=== PATIENT | male | born 1955 | race Caucasian/White ===

== ENCOUNTER → 2017-10-13 | Outpatient (CLI) | payer OTHER ==
[~2017-10-13] MED LIST: ALLO100 PO; ALLO300 PO; AMLO5 PO; ASPI81EC PO; COLC.6 PO; CYAN1000I IM; DOXY100 PO; EXTRA STRENGTH500 MG PO; FERSU220EL PO; FURO40 PO; HYDCHL25 PO; Humalog Mi100 UNIT/4; INSDET100; INSDET100 SC; INSUASPI SC; INSULANI SC; Janumet 50-1,01 EACH PO; LISI20 PO; MELO7.5 PO; METF500 PO; NEBI10 PO; NEBI5 PO; Norco 10-325 T1 EACH PO; SIMV40 PO; SITA50T2 PO; SODBIC650 PO; SPIR25 PO; Simvastatin20 MG PO; TORSE20 PO; XARELTO20 MG PO; Zofran Odt4 MG SL; [UNRECOGNIZED DRUG - OTHER] PO
== END | disposition home or self-care (01) ==
LOC: OLS 08:00 → LAB SHORT 08:00
DX: E11.40 Type 2 diabetes mellitus with diabetic neuropathy, unspecified (principal); E78.5 Hyperlipidemia, unspecified
CPT/HCPCS: 82043

== ENCOUNTER → 2017-10-14 | Outpatient (CLI) | payer OTHER ==
[2017-10-14 13:51] LABS: Stool Occult Bld Immuno 1 Negative (NEGATIVE)
== END | disposition home or self-care (01) ==
LOC: OLS 04:00 → LAB SHORT 04:00
PROVIDERS: Internal Medicine
DX: Z12.11 Encounter for screening for malignant neoplasm of colon (principal)
CPT/HCPCS: G0328

== ENCOUNTER 2018-09-09 09:38 | Inpatient (IN) | payer OTHER ==
[~2018-09-09] VITALS: Ht 182.9 cm; Wt 181.7 kg
[~2018-09-09 09:38] MED LIST changes: +FERROUS SULFATE PO; -FERSU220EL PO; -Janumet 50-1,01 EACH PO; -NEBI5 PO
[2018-09-09 10:15] LABS: BASOPHILS ABSOLUTE AUTO 0.03 K/mm3 (0.00-0.23); BASOPHILS PERCENT AUTO 0 % (0-2); EOSINOPHILS ABSOLUTE AUTO 0.05 K/mm3 (0.00-0.68); EOSINOPHILS PERCENT AUTO 1 % (0-6); Hematocrit 32.3 % (37.0-53.0); Hemoglobin 10.2 g/dL (13.5-17.5); IMMATURE GRAN ABSOLUTE AUTO 0.13 K/mm3 (0.00-0.10); IMMATURE GRAN PERCENT AUTO 2 % (0-1); LYMPHOCYTES PERCENT AUTO 3 % (21-46); MONOCYTES ABSOLUTE AUTO 0.91 K/mm3 (0.16-1.47); MONOCYTES PERCENT AUTO 13 % (4-13); Mean Corpuscular HGB 32.4 pg (26.0-34.0); Mean Corpuscular HGB Conc 31.6 g/dL (31.5-36.5); Mean Corpuscular Volume 103 fL (80-100); Mean Platelet Volume 9.2 fL (9.1-12.4); NEUTROPHILS ABSOLUTE AUTO 5.82 K/mm3 (1.96-9.15); NEUTROPHILS PERCENT AUTO 82 % (41-73); Platelet Count 171 K/mm3 (150-400); RDW Coefficient Variation 13.9 % (11.7-14.2); RDW Standard Deviation 52.4 fL (35.1-46.3); Red Blood Cell Count 3.15 M/mm3 (4.30-5.90); White Blood Cell Count 7.14 K/mm3 (4.00-11.30)
[2018-09-09 10:39] LABS: Albumin, Blood 2.5 g/dL (3.4-5.0); Albumin/Globulin Ratio 0.7 (0.8-1.8); Bilirubin, Total 0.4 mg/dL (0.1-1.0); Calcium, Blood 8.2 mg/dL (8.5-10.1); Creatinine, Blood 1.86 mg/dL (0.60-1.20); Globulin, Blood 3.7 g/dL (2.2-4.0); Potassium, Blood 3.7 mmol/L (3.5-5.5); Total Protein, Blood 6.2 g/dL (6.4-8.2)
[2018-09-09 16:10] LABS: PCO2 Arterial 38.3 mmHg (35-45); PO2 Arterial 57.1 mmHg (80-100)
[2018-09-09 16:38] LABS: Influenza A Positive (NEGATIVE); Influenza B Negative (NEGATIVE)
[2018-09-09] MEDS ORDERED: METO50ER PO (17:10)
[2018-09-09] MEDS ORDERED: LISI20 PO (17:11)
[2018-09-09] MEDS ORDERED: Humalog100 UNIT/3 SC (17:14)
[2018-09-09] MEDS ORDERED: NEBI10 PO (17:56)
[2018-09-09] MEDS ORDERED: SPIR25 PO (17:57)
[2018-09-09] MEDS ORDERED: Simvastatin20 MG PO (18:51)
[2018-09-09] MEDS ORDERED: Janumet 50-1,01 EACH PO (18:52)
[2018-09-10 05:47] LABS: BASOPHILS ABSOLUTE AUTO 0.02 K/mm3 (0.00-0.23); BASOPHILS PERCENT AUTO 0 % (0-2); EOSINOPHILS ABSOLUTE AUTO 0.01 K/mm3 (0.00-0.68); EOSINOPHILS PERCENT AUTO 0 % (0-6); Hemoglobin 9.8 g/dL (13.5-17.5); IMMATURE GRAN PERCENT AUTO 3 % (0-1); LYMPHOCYTES ABSOLUTE AUTO 0.41 K/mm3 (0.84-5.20); LYMPHOCYTES PERCENT AUTO 7 % (21-46); MONOCYTES ABSOLUTE AUTO 1.11 K/mm3 (0.16-1.47); MONOCYTES PERCENT AUTO 19 % (4-13); Mean Corpuscular HGB 31.8 pg (26.0-34.0); Mean Corpuscular HGB Conc 30.6 g/dL (31.5-36.5); Mean Corpuscular Volume 104 fL (80-100); Mean Platelet Volume 9.8 fL (9.1-12.4); NEUTROPHILS ABSOLUTE AUTO 4.08 K/mm3 (1.96-9.15); NEUTROPHILS PERCENT AUTO 70 % (41-73); Platelet Count 167 K/mm3 (150-400); RDW Standard Deviation 53.9 fL (35.1-46.3); Red Blood Cell Count 3.08 M/mm3 (4.30-5.90); White Blood Cell Count 5.83 K/mm3 (4.00-11.30)
[2018-09-10 06:03] LABS: Bun/Creatinine Ratio 13.5 (12.0-20.0); Calcium, Blood 8.4 mg/dL (8.5-10.1); Creatinine, Blood 2.23 mg/dL (0.60-1.20); Potassium, Blood 3.9 mmol/L (3.5-5.5)
[2018-09-10] MEDS ORDERED: Ferosul325 MG PO (14:22)
[2018-09-10] MEDS ORDERED: TUMERIC PO (14:26)
[2018-09-10] MEDS ORDERED: Coq-10100 MG PO (14:26)
--- NOTE | 2018-09-10 17:32 | NUR ---
POST VOID BLADDER SCAN 75
--- NOTE | 2018-09-10 20:50 | NUR ---
PM NOTE. ASSUMED CARE OF PT APROX 1900, PT IS A&Ox4 AND IND IN THE ROOM, PT WAS ADMITTED DUE TO ACUTE RESP FAILURE W/HYPOXIA AND IS FLU POSITIVE. PT IS CURRENTLY ON 4L NC W/STATS AT 91%. PT DOES NOT USE O2 AT HOME. TELE INTACT, NSR W/BBB IN THE 80'S PER BED RUBBER. PT'S BP 151/64. PT HAS 3+ EDEMA TO THE BLLE. PT L/S COARSE AND DIM T/O. BT PRESENT AND HYPERACTIVE, ABD IS SOFT AND NONTENDER TO PALP. CALL LIGHT IN REACH, PT IS UP IN RECLINER, WILL CONTINUE TO MONITOR.
[2018-09-11 04:14] LABS: BASOPHILS ABSOLUTE AUTO 0.02 K/mm3 (0.00-0.23); BASOPHILS PERCENT AUTO 0 % (0-2); EOSINOPHILS ABSOLUTE AUTO 0.01 K/mm3 (0.00-0.68); EOSINOPHILS PERCENT AUTO 0 % (0-6); Hematocrit 29.6 % (37.0-53.0); IMMATURE GRAN ABSOLUTE AUTO 0.11 K/mm3 (0.00-0.10); IMMATURE GRAN PERCENT AUTO 1 % (0-1); LYMPHOCYTES ABSOLUTE AUTO 0.52 K/mm3 (0.84-5.20); LYMPHOCYTES PERCENT AUTO 7 % (21-46); MONOCYTES ABSOLUTE AUTO 1.32 K/mm3 (0.16-1.47); MONOCYTES PERCENT AUTO 17 % (4-13); Mean Corpuscular HGB 31.1 pg (26.0-34.0); Mean Corpuscular HGB Conc 30.4 g/dL (31.5-36.5); Mean Corpuscular Volume 102 fL (80-100); Mean Platelet Volume 9.8 fL (9.1-12.4); NEUTROPHILS ABSOLUTE AUTO 5.78 K/mm3 (1.96-9.15); NEUTROPHILS PERCENT AUTO 75 % (41-73); Platelet Count 146 K/mm3 (150-400); RDW Standard Deviation 52.7 fL (35.1-46.3); Red Blood Cell Count 2.89 M/mm3 (4.30-5.90); White Blood Cell Count 7.76 K/mm3 (4.00-11.30)
[2018-09-11 04:40] LABS: Albumin, Blood 1.9 g/dL (3.4-5.0); Albumin/Globulin Ratio 0.5 (0.8-1.8); Bilirubin, Total 0.7 mg/dL (0.1-1.0); Bun/Creatinine Ratio 12.8 (12.0-20.0); Calcium, Blood 8.3 mg/dL (8.5-10.1); Creatinine, Blood 3.27 mg/dL (0.60-1.20); Globulin, Blood 3.6 g/dL (2.2-4.0); Magnesium, Blood 1.7 mg/dL (1.6-2.4); Phosphorus, Blood 4.3 mg/dL (2.5-4.9); Total Protein, Blood 5.5 g/dL (6.4-8.2)
--- NOTE | 2018-09-11 06:21 | NUR ---
SHIFT SUMMARY. NO ACUTE CHANGES NOTED THIS SHIFT. PT'S VS HAVE BEEN STABLE. PT'S O2 HAS BEEN TITRATED FROM 4L NC TO 1.5 L NC W/ STATS AT 92%. PT WAS GIVEN 2MG BUMEX AT 2100, PT HAS NOT VOIDED SINCE THAT TIME. PT CONTINUES TO HAVE 3+ PITTING EDEMA TO HIS BLLE. PT DENIES ANY CHEST PAIN/PRESSURE, N/V AND BECOMES SOB W/ACTIVITY. CALL LIGHT IN REACH, PT IS IN RECLINER, WILL CONTINUE TO MONITOR UNTIL REPORT IS GIVEN TO ONCOMING RN.
--- NOTE | 2018-09-11 12:09 | NUR ---
Assumed Care: Assumed care of pt at approx 0700. VSS. In no apparent sign of distress. Pt is A&Ox4. Calls appropriately and repositions self. Dr. Florence in to see pt today, and pt denies any unmet needs or requests this AM. See shift assessment for detailed assessment. Pt down to 1L O2 NC this AM and tolerating well. Pt eager to take a shower and go for a walk today. Pt currently resting in bed with call light within reach. Received order to transfer to medical floor w/out tele, but no bed assignment at this time. Will continue to monitor.
--- NOTE | 2018-09-11 12:13 | NUR ---
Update: Report given to Milo Mancilla RN.
--- NOTE | 2018-09-11 14:18 | NUR ---
UPDATE: Assumed care of Pt. Agree with AM assessment. Pt up in room working with Physical therapy. Tolerated well. Pt SOB after working with Pt. LS wheezy throughout. Resp Therapy called for breathing tx. HR sounds reg, med no tele status. Dressings to RLQ intact. Denies other needs or pain. Will continue to monitor.
--- NOTE | 2018-09-11 18:42 | NUR ---
SHIFT SUMMARY: Pt sitting up in chair with visitor at bedside. States that he is feeling better today. Oxygen is down to 1L NC. LS still wheezing throughout. Pt has done well this shift. Has worked with Physical therapy. Has been up in the room independently. VSS. 24 hour urine being collected and will be completed in am. Denies needs at this time. Will report to night RN.
--- NOTE | 2018-09-11 20:52 | NUR ---
PM NOTE. ASSUMED CARE OF PT APROX 1900, PT IS A&Ox4 AND IND IN THE ROOM. PT WAS ADMITTED DUE TO RESP FAILURE AND IS FLU POSITIVE. PT'S L/S HAVE IMPROVED, THE COARSENESS HAS DECREASED, WHEEZES ARE STILL HEARD T/O. PT IS CURRENTLY ON 1L NC AT 94%. RR 23 EVEN AND UNLABORED. PT'S HRR AT 85, PT'S BP 145/56, PT HAS 2+ PITTING EDEMA TO HIS BLLE, THIS IS ALSO IMPROVED FROM PREVIOUS SHIFT. L/S ABOVE. BT PRESENT AND HYPERACTIVE, ABD IS SOFT AND NONTENDER TO PALP. PT HAS CHRONIC WOUNDS TO HIS RIGHT LOWER ABD AREA, PT TAKES CARE OF THESE HIMSELF, HE STATES HE HAS HAD THEM FOR 18 YEARS. CALL LIGHT IN REACH, PT IS UP IN RECLINER, WILL CONTINUE TO MONITOR.
[2018-09-12 04:03] LABS: BASOPHILS ABSOLUTE AUTO 0.02 K/mm3 (0.00-0.23); BASOPHILS PERCENT AUTO 0 % (0-2); EOSINOPHILS ABSOLUTE AUTO 0.05 K/mm3 (0.00-0.68); EOSINOPHILS PERCENT AUTO 1 % (0-6); Hematocrit 28.9 % (37.0-53.0); IMMATURE GRAN ABSOLUTE AUTO 0.06 K/mm3 (0.00-0.10); IMMATURE GRAN PERCENT AUTO 1 % (0-1); LYMPHOCYTES ABSOLUTE AUTO 0.54 K/mm3 (0.84-5.20); LYMPHOCYTES PERCENT AUTO 8 % (21-46); MONOCYTES ABSOLUTE AUTO 0.69 K/mm3 (0.16-1.47); MONOCYTES PERCENT AUTO 11 % (4-13); Mean Corpuscular HGB 31.6 pg (26.0-34.0); Mean Corpuscular HGB Conc 31.1 g/dL (31.5-36.5); Mean Corpuscular Volume 101 fL (80-100); Mean Platelet Volume 10.1 fL (9.1-12.4); NEUTROPHILS ABSOLUTE AUTO 5.09 K/mm3 (1.96-9.15); NEUTROPHILS PERCENT AUTO 79 % (41-73); Platelet Count 163 K/mm3 (150-400); RDW Coefficient Variation 13.9 % (11.7-14.2); RDW Standard Deviation 51.8 fL (35.1-46.3); Red Blood Cell Count 2.85 M/mm3 (4.30-5.90); White Blood Cell Count 6.45 K/mm3 (4.00-11.30)
[2018-09-12 04:26] LABS: Anion Gap 9 mmol/L (6-16); Blood Urea Nitrogen 48 mg/dL (8-24); Bun/Creatinine Ratio 11.7 (12.0-20.0); CO2, Blood 24 mmol/L (21-32); Calcium, Blood 8.1 mg/dL (8.5-10.1); Chloride, Blood 108 mmol/L (98-108); Glomerular Filtration Rate 16 (60-); Glucose, Blood 119 mg/dL (70-99); Magnesium, Blood 1.8 mg/dL (1.6-2.4); Phosphorus, Blood 5.1 mg/dL (2.5-4.9); Potassium, Blood 3.7 mmol/L (3.5-5.5); Sodium, Blood 141 mmol/L (136-145)
--- NOTE | 2018-09-12 05:22 | NUR ---
SHIFT SUMMARY. NO ACUTE CHANGES NOTED THIS SHIFT. PT VS HAVE BEEN STABLE. PT DENIES ANY CHEST PAIN/PRESSURE OR N/V. PT BECOMES SOB W/ACTIVITY, HE IS CURRENTLY ON 1L NC WITH STATS >90%. PT HAS 24 HOUR URINE TEST THAT WILL BE DONE AT 0830 TODAY. PT HAS BEEN COMPLIANT WITH HIS 1000 ML FLUID RESTRICTION. PT HAS BEEN IND IN THE ROOM T/O SHIFT. PT COMPLAINS OF SHAKY HANDS, HE STATES THIS HAS BEEN GOING ON "ALL DAY." PT HAS NO OTHER COMPLAINTS, PT IS TAKING BREATHING TREATMENTS AND IV STERIODS THAT COULD CAUSE THIS ISSUE. CALL LIGHT IN REACH, BED IS LOCKED AND LOW WILL CONTINUE TO MONITOR UNTIL REPORT IS GIVEN TO ONCOMING RN.
[2018-09-12 10:21] LABS: Protein, Urine Quantitative 475.9 mg/dL (0.0-11.9)
--- NOTE | 2018-09-12 10:43 | NUR ---
AM NOTE PT ALERT AND ORIENTED. MEDCIAL FLOOR STATUS. NO TELEMETRY. AP REG/REG. PT UP AD ROBB. GAIT SLOW BIT STEADY. HE DOES GET SOB WITH ACTIVITY. 24 HOUR URINE COMPLETED AND TAKEN TO LAB. ENDED 24 HOUR URINE AT 0930 WHEN IT WAS STARTED AT 0830 YESTERDAY D/T THE TIME CHANGE. PT COMPLIANT WITH FLUID RESTRICTION. HE IS SUCKING ON ICE AND ASKED HIS SISTER TO BRING IN SOME SUGAR FREE HARD CANDY. VSS. DENIED PAIN OR DISCOMFORT. UP INT HE RECLINER CURRENTLY. CONTINUE POT.
--- NOTE | 2018-09-12 13:43 | NUR ---
NOTE PT SITTING UP WITH HIS GIRL FRIEND AT BEDSIDE. EYES CLOSED. RESP. EVEN AND UNLABORED. TALKED WITH PT SISTER EARLIER. SHE IS VERY CONCERNED ABOUT PT RENAL FUNCTION. SHE ASKED THAT DR MADSEN BE CONTACTED TOMORROW. PT AGREED WELL. VSS. DENIED PAIN. WAS PLAYING CARDS WITH FRIEND EARLIER. CONTINUE POT.
--- NOTE | 2018-09-12 21:35 | NUR ---
PM NOTE. ASSUMED CARE OF PT APROX 1900, PT IS A&Ox4 AND IND IN THE ROOM. PT IS VERY COMPLIANT W/1000 ML FLUID RESTRICTION AND I'S&O'S. PT'S L/S HAVE IMPROVED GREATLY FROM PREVIOUS SHIFT, PT IS CURRENTLY ON 1L NC AT 93%. PT'S HRR IN THE 70'S, PT'S BP 196/94, PT HAS 1+ EDEMA TO HIS BLE, THIS ALSO HAS IMPROVED GREATLY. L/S ARE SLIGHLTY COARSE WITH SMALL EXP WHEEZES HEARED IN THE UPPER LOBES. BT PRESENT AND HYPOACTIVE, ABD IS SOFT AND NONTENDER TO PALP. CALL LIGHT IN REACH, BED IS LOCKED AND LOW WILL CONTINUE TO MONITOR.
--- NOTE | 2018-09-12 22:58 | NUR ---
PT UPDATE... PT CALLED THIS RN AND SAID THAT ACADEMIC MANAGER HAD COME INTO HIS ROOM AND TOLD HIM HE WAS GOING TO REQUIRE DIALYSIS, PT WAS VERY UPSET BY THIS AND DID NOT FEEL HIS KIDNEYS WERE THAT BAD. THIS RN PROVIDED EXTENSIVE EDUCATION ABOUT HIS CONDITION, DIALYSIS, KIDNEY FUCNTION IN RELATIONS TO HIS CURRENT ILLNESS. THIS RN ANSWERED PT'S QUESTIONS TO HIS STATED SASTIFACTION. PT DENIED ANY OTHER QUEISTIONS, COMMENTS OR CONCERNS.
[2018-09-13 04:08] LABS: BASOPHILS PERCENT AUTO 0 % (0-2); EOSINOPHILS PERCENT AUTO 0 % (0-6); Hematocrit 29.1 % (37.0-53.0); Hemoglobin 9.1 g/dL (13.5-17.5); IMMATURE GRAN ABSOLUTE AUTO 0.05 K/mm3 (0.00-0.10); IMMATURE GRAN PERCENT AUTO 2 % (0-1); LYMPHOCYTES ABSOLUTE AUTO 0.32 K/mm3 (0.84-5.20); LYMPHOCYTES PERCENT AUTO 9 % (21-46); MONOCYTES PERCENT AUTO 6 % (4-13); Mean Corpuscular HGB 31.7 pg (26.0-34.0); Mean Corpuscular HGB Conc 31.3 g/dL (31.5-36.5); Mean Corpuscular Volume 101 fL (80-100); NEUTROPHILS ABSOLUTE AUTO 2.87 K/mm3 (1.96-9.15); NEUTROPHILS PERCENT AUTO 83 % (41-73); Platelet Count 143 K/mm3 (150-400); RDW Coefficient Variation 13.4 % (11.7-14.2); RDW Standard Deviation 50.6 fL (35.1-46.3); Red Blood Cell Count 2.87 M/mm3 (4.30-5.90); White Blood Cell Count 3.44 K/mm3 (4.00-11.30)
[2018-09-13 04:23] LABS: Bun/Creatinine Ratio 13.1 (12.0-20.0); Creatinine, Blood 4.52 mg/dL (0.60-1.20); Potassium, Blood 4.6 mmol/L (3.5-5.5)
--- NOTE | 2018-09-13 05:29 | NUR ---
SHIFT SUMMARY. NO ACUTE CHANGES NOTED THIS SHIFT. PT HAS DENIED ANY CHEST PAIN/PRESSURE, N/V BUT BECOMES SOB W/ACTIVITY. PT IS CURRENTLY ON 1L NC WITH STATS AT 91%. PT HAS BEEN IND IN THE ROOM AND UP TO THE BATHROOM TO VOID. PT HAS HAD 200 MLS OF FLUIDS THIS SHIFT. PT WAS HYPERTENSIVE AT 196/86 AT 0417, PT WAS MEDICATED PER EMAR AND HIS BP DROPPED TO 145/68. PT WAS NOT SYMPTOMACTIC DURING THIS TIME. OTHERWISE PT'S VS HAVE BEEN STABLE. CALL LIGHT IN REACH, BED IS LOCKED AND LOW WILL CONTINUE TO MONITOR UNTIL REPORT IS GIVEN TO ONCOMING RN.
--- NOTE | 2018-09-13 09:17 | NUR ---
DR NOELLE DRAKE RETURNED PAGE. ORDER RECEIVED. CONTINUE POT.
--- NOTE | 2018-09-13 09:37 | NUR ---
DR MADSEN D/T EVENTS DURING THE NIGHT WITH DR ALDRICH. PT HAS REQUESTED DR MADSEN BE CONTACTED. PT CALLED DR MADSEN'S OFFICE HIMSELF. THIS NURSE CALLED DR MADSEN'S OFFICVE TO MAKE THE OFFICIAL REQUEST. LEFT A MESSAGE FOR DR MADSEN FOR CLARIFICATION ON THE BUMEX DOSE. CONTINUE POT.
[2018-09-13 14:26] LABS: Stool Occult Bld Immuno 1 Negative (NEGATIVE)
--- NOTE | 2018-09-13 18:09 | NUR ---
EVENING NOTE PT SITTING UP INT HE CHAIR AT BEDSIDE. ALERT AND ORIENTED. DR MADSEN CAME AND VISITED WITH PT. NEW ORDERS AND PLAN OF CARE UPDATED BY DR MADSEN. VSS. PT RELIEVED TO HEAR THE PLAN FROM HER. PT VOIDING PER URINAL. TOOK A SHOWER. PICTURES TAKEN OF PT RIGHT ABD WOUNDS X3 AND PLACED IN THE CHART. PT REDRESSED HIS CHRONIC WOUND HIMSELF. WOUNDS PINK, NO DRAINAGE OR ODOR NOTED. CONTINUE POT.
[2018-09-14 04:14] LABS: Hematocrit 30.5 % (37.0-53.0); Hemoglobin 9.6 g/dL (13.5-17.5)
[2018-09-14 04:32] LABS: Albumin, Blood 2.2 g/dL (3.4-5.0); Anion Gap 10 mmol/L (6-16); Blood Urea Nitrogen 75 mg/dL (8-24); Bun/Creatinine Ratio 16.4 (12.0-20.0); CO2, Blood 22 mmol/L (21-32); Calcium, Blood 8.4 mg/dL (8.5-10.1); Chloride, Blood 108 mmol/L (98-108); Creatinine, Blood 4.56 mg/dL (0.60-1.20); Glomerular Filtration Rate 14 (60-); Glucose, Blood 193 mg/dL (70-99); Phosphorus, Blood 4.7 mg/dL (2.5-4.9); Potassium, Blood 4.3 mmol/L (3.5-5.5); Sodium, Blood 140 mmol/L (136-145)
--- NOTE | 2018-09-14 05:34 | NUR ---
SHIFT SUMMARY PT MEDICAL W/ TELE STATUS, IN DROPLET ISOLATION FOR FLU. PT A&O X4, INDEPENDENT IN ROOM W/ CANE WHILE AMBULATING. PT LUNG SOUNDS COARSE T/O W/ EXPIRATORY WHEEZE. SPO2 > 92% ON 1L NC. PT DENIES SOB W/ AMBULATION TO AND FROM BATHROOM. PT REFUSING CPAP, REFUSAL FORM SIGNED BY PT AND PLACED IN CHART. PT DENIES PAIN. WILL CONTINUE TO MONITOR AND PROVIDE CARE UNTIL REPORT OFF TO DAY SHIFT RN.
--- NOTE | 2018-09-14 08:45 | NUR ---
INITIAL ASSESSMENT: Pt sitting up in recliner chair. A/O x 4. LS diminished in bases with some exp wheezing upper lobes. HR reg, tele shows NSR with some PVC's. BT hyperactive. Very obese. Beulah dressings over RLQ chronic wounds. Pulses palp. +1 edema to BLE. Pt states his legs look better now then they have in "a while". VSS. Pt denies pain. Call light in reach. Denies needs. Will monitor.
[2018-09-14 16:08] LABS: A/G RATIO 0.9 (0.7-1.7); ALBUMIN 2.1 g/dL (2.9-4.4); ALPHA-1-GLOBULIN 0.4 g/dL (0.0-0.4); ALPHA-2-GLOBULIN 1.3 g/dL (0.4-1.0); BETA GLOBULIN 0.7 g/dL (0.7-1.3); GAMMA GLOBULIN 0.3 g/dL (0.4-1.8); GLOBULIN, TOTAL 2.6 g/dL (2.2-3.9); IMMUNOGLOBULIN A, QN, SERUM 146 mg/dL (61-437); IMMUNOGLOBULIN G, QN, SERUM 267 mg/dL (700-1600); IMMUNOGLOBULIN M, QN, SERUM 21 mg/dL (20-172); M-SPIKE Not Observed g/dL (Not Observed); PROTEIN, TOTAL, SERUM 4.7 g/dL (6.0-8.5)
--- NOTE | 2018-09-14 18:06 | NUR ---
Shift Summary: Pt was sitting up in chair. Finished with dinner. Visitor at bedside. Pt has done well this shift. Was able to be taken off of oxygen this am and has remained on RA throughout the day. Biox has remained > 90% on RA. Does become SOB when he is up in room to bathroom. During this his BIox still remains > 90%. Has voided frequently, clear yellow urine. BP was elevated this afternoon, right after being up to bathroom. Improved after resting in chaif for a while. Pt has denied needs. Will report to night RN.
--- NOTE | 2018-09-14 19:30 | NUR ---
ASSUMED CARE PT RESTING IN ROOM IN CHAIR COMFORTABLY. PER DAY SHIFT PT HAS BEEN ION RECLINER MOST OF THE DAY. REPORTS PREFERS RECLINER TO BED. PT IS INDEPENDENT IN ROOM, AND CALLS APPROPRIATELY. RESP EVEN UNLABORED ON RA, W/ SATS >92%. DENIES SOB OR CP. PT DENIES ANY OTHER NEEDS AT THIS TIME. CALL LIGHT IN REACH.
--- NOTE | 2018-09-15 05:34 | NUR ---
SHIFT SUMMARY PT SLEEPING IN ROOM COMFORTABLY. NO ACUTE CHANGES NOTERD T/O SHIFT. PT HAD NO COMPLAINTS. DENIED ANY PAIN, OR SOB. RESP EVEN UNLBAORED ON RA W/ SATS >92%. PT INDEPENDENT IN ROOM, CALLS APPROPRIATELY. CALL LIGHT IN REACH.
[2018-09-15 05:37] LABS: Albumin, Blood 2.1 g/dL (3.4-5.0); Anion Gap 10 mmol/L (6-16); Blood Urea Nitrogen 81 mg/dL (8-24); Bun/Creatinine Ratio 19.9 (12.0-20.0); CO2, Blood 22 mmol/L (21-32); Calcium, Blood 8.3 mg/dL (8.5-10.1); Chloride, Blood 109 mmol/L (98-108); Creatinine, Blood 4.07 mg/dL (0.60-1.20); Glomerular Filtration Rate 16 (60-); Glucose, Blood 192 mg/dL (70-99); Phosphorus, Blood 4.4 mg/dL (2.5-4.9); Potassium, Blood 4.4 mmol/L (3.5-5.5); Sodium, Blood 141 mmol/L (136-145)
[2018-09-15 07:17] LABS: ANTIGLOMERULAR BM AB 2 units (0-20)
--- NOTE | 2018-09-15 08:10 | NUR ---
AM ASSESSMENT: Pt up in recliner chair. LS diminished in bases, L lobe with some coarsness throughout. BT positive. HR reg with murmur heard. PUlses palp. Pt states that he is feeling good. VSS. 2+ edema in BLE. Pulses palp. Denies pain. Call light in reach. Will monitor.
[2018-09-15 14:09] LABS: ANA DIRECT Negative (Negative); ANTIMYELOPEROXIDASE (MPO) ABS <9.0 U/mL (0.0-9.0); ANTIPROTEINASE 3 (PR-3) ABS <3.5 U/mL (0.0-3.5); ATYPICAL PANCA <1:20 titer (Neg:<1:20); CYTOPLASMIC (C-ANCA) <1:20 titer (Neg:<1:20); PERINUCLEAR (P-ANCA) <1:20 titer (Neg:<1:20)
[2018-09-15 14:09] LABS: M-SPIKE, % Not Observed % (Not Observed); PROTEIN,TOTAL,URINE 440.3 mg/dL (Not Estab.)
--- NOTE | 2018-09-15 18:09 | NUR ---
SHIFT SUMMARY: Pt sitting up in recliner chair. Denies needs. Pt has done well this shift. Has remained off of oxygen today and biox has remained 94%. Pt has voided frequently clear yellow urine. BP has been elevated, new orders (see emar). Pt has denied needs and hopes to go home tomorrow. Stable at end of shift. Will report to night rn.
--- NOTE | 2018-09-15 19:30 | NUR ---
NEW ASSUMED CARE PT RESTING IN ROOM IN CHAIR COMFORTABLY. PER DAY SHIFT PT HAD NO ACUTE CHANGES IN STATUS. PER PROVIDER PT TO BE OBSERVED ONE MORE NIGHT, AND LABS TO BE DRAWN AGAIN TO WATCH FOR IMPROVED KIDNEY FUNCTION. PT DENIES CP OR SOB. REPORTS FEELING GOOD AND READY TO GO HOME. RESP EVEN UNLABORED ON RA. PER DAY SHIFT PT HAD SOME HTN TODAY. HAS BEEN TREATED PER EMAR. CALL LIGHT IN REACH. PT CALLS APPROPRIATELY.
--- NOTE | 2018-09-15 19:30 | NUR ---
ASSUMED CARE PT RESTING IN ROOM COMFORTABLY. PER DAY SHIFT PT HAD NO ACUTE CHANGES IN STATUS DURING THE DAY. PT HAS HAD SLIGHT IMPROVMENT IN COGNITION AND HAS BEEN ABLE TO HAVE SHORT CONVERSATIONS WITH STAFF. PT CONTINUES TO BE CONFUSED AND DISORIENTED AT TIMES. RESP EVEN UNLABORED ON RA W/ SATS >92%. DENIES ANY PAIN AT THIS TIME. SURGICAL SITE FOR PACEMAKER INSPECTED AND WNL, DRESSING C/D/I. PT REORIENTED TO CALL LIGHT AND HOW TO FUNCTION TV CONTROLS AND CALL FOR STAFF. BED ALARM ON FOR SAFETY. CALL LIGHT IN REACH.
[2018-09-16 03:45] LABS: Hematocrit 31.1 % (37.0-53.0)
[2018-09-16 04:04] LABS: Albumin, Blood 2.2 g/dL (3.4-5.0); Anion Gap 10 mmol/L (6-16); Blood Urea Nitrogen 79 mg/dL (8-24); Bun/Creatinine Ratio 21.8 (12.0-20.0); CO2, Blood 23 mmol/L (21-32); Calcium, Blood 8.2 mg/dL (8.5-10.1); Chloride, Blood 110 mmol/L (98-108); Creatinine, Blood 3.62 mg/dL (0.60-1.20); Glomerular Filtration Rate 18 (60-); Glucose, Blood 185 mg/dL (70-99); Sodium, Blood 143 mmol/L (136-145)
--- NOTE | 2018-09-16 05:52 | NUR ---
SHIFT SUMMARY PT SLEEPING IN ROOM COMFORTABLY. NO ACUTE CHANGES WERE NOTED TO PT STATUS T/O NIGHT. RESP EVEN UNLABORED ON RA, W/ SATS >92%. DENIES CP, OR SOB. PT IS INDEPENDENT IN ROOM. CALLS APPROPRIATELY. CALL LIGHT IN REACH.
[2018-09-16] MEDS ORDERED: Coenzyme Q10100 M1 PO (12:52)
[2018-09-16] MEDS ORDERED: BUME2 PO (12:53)
[2018-09-16] MEDS ORDERED: Janumet 50-1,01 EACH PO (13:05)
[2018-09-16] MEDS ORDERED: CLON.1 PO (13:06)
[2018-09-16] MEDS ORDERED: GUAI600T33 PO (13:07)
[2018-09-16] MEDS ORDERED: PRED10 PO (13:09)
[2018-09-16] MEDS ORDERED: HYDRA25 PO (13:09)
[2018-09-16] MEDS ORDERED: Ventolin/Prove6.7 GM INH (13:11)
--- NOTE | 2018-09-16 14:09 | NUR ---
PT IS DISCHARGED TO HOME. APPOINTMENT TO BE WITH ON October AND WITH ON October. PT VERBALIZED UNDERSTNADING. RX PHONED TO [facility] AT 1330. THIS RN GOES OVER [place] MEDS WITH PATIENT. HE VERBALIZED UNDERSTANDING.
== END 2018-09-16 13:55 | disposition home or self-care (01) | DRG 871 ==
LOC: ER 09:38 → ERHOLD 17:44 → PCU 17:44
PROVIDERS: Emergency Medicine; Hospitalist; Internal Medicine; Internal Medicine Nephrology; ADMIT Family Medicine
DX: A41.9 Sepsis, unspecified organism (principal); I50.31 Acute diastolic (congestive) heart failure; J96.01 Acute respiratory failure with hypoxia; E66.2 Morbid (severe) obesity with alveolar hypoventilation; J44.1 Chronic obstructive pulmonary disease with (acute) exacerbation; N17.9 Acute kidney failure, unspecified; I13.0 Hypertensive heart and chronic kidney disease with heart failure and stage 1 through stage 4 chronic kidney disease, or unspecified chronic kidney disease; I24.8 Other forms of acute ischemic heart disease; I48.0 Paroxysmal atrial fibrillation; J10.1 Influenza due to other identified influenza virus with other respiratory manifestations; N18.3 Chronic kidney disease, stage 3 (moderate); E11.22 Type 2 diabetes mellitus with diabetic chronic kidney disease; E11.65 Type 2 diabetes mellitus with hyperglycemia; T38.0X5A Adverse effect of glucocorticoids and synthetic analogues, initial encounter; D63.1 Anemia in chronic kidney disease; R80.9 Proteinuria, unspecified; E88.09 Other disorders of plasma-protein metabolism, not elsewhere classified; G47.30 Sleep apnea, unspecified; M10.9 Gout, unspecified; Z66 Do not resuscitate; Z87.891 Personal history of nicotine dependence; Z79.01 Long term (current) use of anticoagulants; Z79.82 Long term (current) use of aspirin; Z79.4 Long term (current) use of insulin; Z79.899 Other long term (current) drug therapy
CPT/HCPCS: 36415; 36600; 71046; 76770; 80048; 80053; 80069; 81050; 82274; 82607; 82728; 82746; 82784; 82803; 82947; 83516; 83520; 83540; 83550; 83605; 83735; 83880; 84100; 84156; 84165; 84166; 84484; 85014; 85018; 85025; 86038; 86256; 86334; 86335; 87040; 87804; 93005; 93010; 94640; 94660; 94760; 94762; 97110; 97161; 99285-25; J0360; J0881; J1650; J1815; J2920; J7626

== ENCOUNTER → 2018-10-01 | Outpatient (CLI) | payer OTHER ==
[~2018-10-01] MED LIST changes: +BUME2 PO; +CLON.1 PO; +Coenzyme Q10100 M1 PO; +Coq-10100 MG PO; +Ferosul325 MG PO; +GUAI600T33 PO; +HYDRA25 PO; +Humalog100 UNIT/3 SC; +Janumet 50-1,01 EACH PO; +METO50ER PO; +PRED10 PO; +TUMERIC PO; +Ventolin/Prove6.7 GM INH
[2018-10-01 12:53] LABS: BASOPHILS ABSOLUTE AUTO 0.01 K/mm3 (0.00-0.23); BASOPHILS PERCENT AUTO 0 % (0-2); EOSINOPHILS ABSOLUTE AUTO 0.13 K/mm3 (0.00-0.68); EOSINOPHILS PERCENT AUTO 3 % (0-6); Hematocrit 27.9 % (37.0-53.0); Hemoglobin 8.8 g/dL (13.5-17.5); IMMATURE GRAN ABSOLUTE AUTO 0.06 K/mm3 (0.00-0.10); IMMATURE GRAN PERCENT AUTO 1 % (0-1); LYMPHOCYTES PERCENT AUTO 12 % (21-46); MONOCYTES ABSOLUTE AUTO 0.77 K/mm3 (0.16-1.47); MONOCYTES PERCENT AUTO 15 % (4-13); Mean Corpuscular HGB Conc 31.5 g/dL (31.5-36.5); Mean Corpuscular Volume 102 fL (80-100); Mean Platelet Volume 10.2 fL (9.1-12.4); NEUTROPHILS ABSOLUTE AUTO 3.44 K/mm3 (1.96-9.15); NEUTROPHILS PERCENT AUTO 69 % (41-73); Platelet Count 145 K/mm3 (150-400); RDW Coefficient Variation 14.3 % (11.7-14.2); RDW Standard Deviation 52.5 fL (35.1-46.3); Red Blood Cell Count 2.75 M/mm3 (4.30-5.90); White Blood Cell Count 5.01 K/mm3 (4.00-11.30)
[2018-10-01 13:02] LABS: Albumin, Blood 2.5 g/dL (3.4-5.0); Albumin/Globulin Ratio 0.7 (0.8-1.8); Bilirubin, Total 0.3 mg/dL (0.1-1.0); Bun/Creatinine Ratio 21.8 (12.0-20.0); Calcium, Blood 8.4 mg/dL (8.5-10.1); Creatinine, Blood 2.61 mg/dL (0.60-1.20); Globulin, Blood 3.8 g/dL (2.2-4.0); Potassium, Blood 4.2 mmol/L (3.5-5.5); Total Protein, Blood 6.3 g/dL (6.4-8.2)
== END | disposition home or self-care (01) ==
LOC: LAB SHORT 12:45 → LAB EV 12:45
PROVIDERS: Physician Assistant Surgical
DX: R06.09 Other forms of dyspnea (principal)
CPT/HCPCS: 80053; 83880; 85025

== ENCOUNTER → 2018-10-25 | Outpatient (CLI) | payer OTHER | END | disposition home or self-care (01) | LOC: LAB SHORT 10:38 → LAB EV 10:38 | DX: N39.0 Urinary tract infection, site not specified (principal) | CPT/HCPCS: 87077; 87086; 87186 ==

== ENCOUNTER → 2018-11-09 | Outpatient (CLI) | payer OTHER | END | disposition home or self-care (01) | LOC: LAB SHORT 10:45 → LAB EV 10:45 | DX: R30.0 Dysuria (principal) | CPT/HCPCS: 87077; 87086; 87186 ==

== ENCOUNTER → 2019-03-29 | Outpatient (CLI) | payer OTHER ==
[2019-03-29 12:29] LABS: Protein, Urine Random 594.4 mg/dL (0.0-11.9)
== END | disposition home or self-care (01) ==
LOC: LAB 09:55 → LAB SHORT 09:55
PROVIDERS: Internal Medicine
DX: N18.3 Chronic kidney disease, stage 3 (moderate) (principal)
CPT/HCPCS: 82570; 84156

== ENCOUNTER → 2019-05-31 | Outpatient (CLI) | payer OTHER ==
[2019-05-31 12:01] LABS: Creatinine, Urine Random 56.2 mg/dL (27.00-270.00)
[2019-05-31 12:02] LABS: Protein, Urine Random 559.7 mg/dL (0.0-11.9)
== END | disposition home or self-care (01) ==
LOC: LAB SHORT 05:45 → LAB 05:45
PROVIDERS: Internal Medicine
DX: N18.3 Chronic kidney disease, stage 3 (moderate) (principal)
CPT/HCPCS: 82570; 84156

== ENCOUNTER 2021-02-20 09:11 | Inpatient (IN) | payer OTHER ==
[~2021-02-20] VITALS: Ht 182.9 cm; Wt 154.2 kg
[~2021-02-20 09:11] MED LIST changes: +ALBU2.5V5 INH; +HUMALOG KW100 UNIT/1 SC; -Humalog100 UNIT/3 SC; -Ventolin/Prove6.7 GM INH
[2021-02-20 09:52] LABS: BASOPHILS ABSOLUTE AUTO 0.03 K/mm3 (0.00-0.23); BASOPHILS PERCENT AUTO 0 % (0-2); EOSINOPHILS PERCENT AUTO 0 % (0-6); Hematocrit 31.9 % (37.0-53.0); IMMATURE GRAN ABSOLUTE AUTO 0.12 K/mm3 (0.00-0.10); IMMATURE GRAN PERCENT AUTO 1 % (0-1); LYMPHOCYTES ABSOLUTE AUTO 0.18 K/mm3 (0.84-5.20); LYMPHOCYTES PERCENT AUTO 2 % (21-46); MONOCYTES ABSOLUTE AUTO 1.03 K/mm3 (0.16-1.47); MONOCYTES PERCENT AUTO 10 % (4-13); Mean Corpuscular HGB 31.3 pg (26.0-34.0); Mean Corpuscular HGB Conc 31.3 g/dL (31.5-36.5); Mean Corpuscular Volume 100 fL (80-100); NEUTROPHILS ABSOLUTE AUTO 8.59 K/mm3 (1.96-9.15); NEUTROPHILS PERCENT AUTO 86 % (41-73); Platelet Count 132 K/mm3 (150-400); RDW Coefficient Variation 15.9 % (11.7-14.2); RDW Standard Deviation 56.9 fL (35.1-46.3); Red Blood Cell Count 3.19 M/mm3 (4.30-5.90); White Blood Cell Count 9.95 K/mm3 (4.00-11.30)
[2021-02-20] MEDS ORDERED: INSULANI SC (09:54)
[2021-02-20 10:10] LABS: Albumin, Blood 2.8 g/dL (3.4-5.0); Albumin/Globulin Ratio 0.9 (0.8-1.8); Bilirubin, Total 0.4 mg/dL (0.1-1.0); Bun/Creatinine Ratio 20.9 (12.0-20.0); Calcium, Blood 8.7 mg/dL (8.5-10.1); Creatinine, Blood 2.54 mg/dL (0.60-1.20); Globulin, Blood 3.2 g/dL (2.2-4.0); Magnesium, Blood 1.6 mg/dL (1.6-2.4); Potassium, Blood 3.3 mmol/L (3.5-5.5); Troponin I 0.358 ng/mL (0.000-0.040)
[2021-02-20] MEDS ORDERED: POTA20LUD PO (13:27)
[2021-02-20] MEDS ORDERED: METO50ER PO (13:28)
[2021-02-20] MEDS ORDERED: LISI20 PO (13:28)
[2021-02-20] MEDS ORDERED: FEBUXOSTAT80 MG PO (13:28)
[2021-02-20] MEDS ORDERED: CYAN500 PO (13:36)
[2021-02-20] MEDS ORDERED: VITAMIN D31000 UNI1 PO (13:36)
[2021-02-20] MEDS ORDERED: ASCO500 PO (13:36)
--- NOTE | 2021-02-20 18:13 | NUR ---
PATIENT ARRIVES VIA W/C FROM [facility] ABOUT 1545. HX OF ; D.M., AFIB, OBESE, SBO SURGERY A NUMBER OF YEARS AGO WITH MESH COMING THRU SKIN AND RESULTING IN 4 SMALL WOUNDS TO ABD X 1 1/2 YEARS.PATIENT WAS ON TOILET EARLY AM AT HOME AND FELL WHEN TRYING TO GET UP. WAS ON THE GROUND ABOUT 7 HOURS. SKIN TEARS TO BUE.20 GA TO RT HAND. DOING SERIAL TROPS FOR ELEVATED NUMBERS. UNLABORED RESPIRATIONS. TELE ON. ABLE TO MAKE NEEDS KNOWN. WCTM
[2021-02-20 18:34] LABS: Creatine Kinase MB 12.9 ng/mL (0.0-3.6)
[2021-02-20 19:02] LABS: Creatine Kinase MB Index 0.5 (0.0-4.0); Troponin I 0.541 ng/mL (0.000-0.040)
--- NOTE | 2021-02-20 19:15 | NUR ---
LAB RESULTS GIVEN TO JENNIFER TO REPORT TO MD. SCRUGGS TRENDING UP AND CK HIGH.
[2021-02-20 23:47] LABS: Creatine Kinase MB 10.2 ng/mL (0.0-3.6); Troponin I 0.473 ng/mL (0.000-0.040)
[2021-02-20 23:48] LABS: Creatine Kinase MB Index 0.3 (0.0-4.0)
[2021-02-21 05:44] LABS: Hematocrit 31.6 % (37.0-53.0); Mean Corpuscular HGB 31.9 pg (26.0-34.0); Mean Corpuscular HGB Conc 31.6 g/dL (31.5-36.5); Mean Corpuscular Volume 101 fL (80-100); Mean Platelet Volume 10.7 fL (9.1-12.4); Platelet Count 107 K/mm3 (150-400); RDW Coefficient Variation 16.4 % (11.7-14.2); RDW Standard Deviation 60.5 fL (35.1-46.3); Red Blood Cell Count 3.13 M/mm3 (4.30-5.90); White Blood Cell Count 12.24 K/mm3 (4.00-11.30)
[2021-02-21 06:28] LABS: Albumin, Blood 2.8 g/dL (3.4-5.0); Albumin/Globulin Ratio 0.8 (0.8-1.8); Bilirubin, Total 0.7 mg/dL (0.1-1.0); Bun/Creatinine Ratio 23.5 (12.0-20.0); Calcium, Blood 8.8 mg/dL (8.5-10.1); Creatinine, Blood 2.51 mg/dL (0.60-1.20); Globulin, Blood 3.4 g/dL (2.2-4.0); Magnesium, Blood 1.6 mg/dL (1.6-2.4); Phosphorus, Blood 2.2 mg/dL (2.5-4.9); Potassium, Blood 3.8 mmol/L (3.5-5.5); Total Protein, Blood 6.2 g/dL (6.4-8.2)
--- NOTE | 2021-02-21 06:28 | NUR ---
SHIFT SUMMARY: VERY WEAK AND PAINFUL ON THE LEFT SIDE. MOSTLY LEFT SHOULDER. DIFFICULT TIME GETTING SELF UP FROM BED TO STANDING WITH OUT 2 PERSON ASSIST. GAVE TYELNOL X1. TROPONIN REACHED CRITICAL LEVEL OF 0.541 BUT IS TRENDING DOWN LAST READING 0.472 LAST CREATINE KINEASE 3165, CK-MB 10.2. WBC ELEVATED 12.24. DIMINISHED LS, OCCATIONAL COUGH. DRESSINGS TO ABDOMIN CDI. SWELLING BLE. UNABLE TO SLEEP IN THE BED, GOT RECLIENER WHICH HE WAS ALBE TO GET COMFORTABLE. VS WNL. NO FURTHER CHANGES TO REPORT. CALL LIGHT IN REACH.
[2021-02-21 06:30] LABS: BAND PERCENT MAN 29 % (0-8); BASOPHILS PERCENT MAN 0 % (0-2); EOSINOPHILS PERCENT MAN 0 % (0-6); LYMPHOCYTES ABSOLUTE MAN 0.48 K/mm3 (0.84-5.20); LYMPHOCYTES PERCENT MAN 4 % (21-46); METAMYELOCYTE ABSOLUTE MAN 0.12 K/mm3 (0.00-0.00); METAMYELOCYTE PERCENT MAN 1 % (0-0); MONOCYTES ABSOLUTE MAN 0.61 K/mm3 (0.16-1.47); MONOCYTES PERCENT MAN 5 % (4-13); MYELOCYTE ABSOLUTE MAN 0.12 K/mm3 (0.00-0.00); MYELOCYTE PERCENT MAN 1 % (0-0); NEUTROPHILS ABSOLUTE MAN 10.89 K/mm3 (1.96-9.15); SEG NEUTROPHILS PERCENT MAN 60 % (41-73); TOTAL CELLS COUNTED 100
--- NOTE | 2021-02-21 12:00 | NUR ---
WOUNDS TO BUE CLEANED WITH WOUND RESIDENTIAL APPLIANCE REPAIR TECHNICIAN AND SOME DRIED BLOOD UNABLE TO GET OFF. OPEN TO AIR. ABD WOUNDS X 4 CLEANED AND ABD APPLIED. SEE PICS.
--- NOTE | 2021-02-21 17:15 | NUR ---
Admit: 02/21/21 Dx. elevated troponin PCP: Dr. Caro Contact: Colleen Ambrocio, Family Member, Update 02/21/21: Patient lives alone. Has experienced difficulty ambulating recently. PT. peformed assessment today with recommendation for SNF for PT prior to returning home. Discussed SNF option with pt. He states that he would prefer not to go to [facility]. Agreeable to [facility] if they will accept him. Pt. likely to be appropriate for discharge within the next 24-48 hours. Packet prepared and will fax to [facility] admissions for review. I will call in the am to ensure that all information needed has been received. Updated nurse on third floor caring for pt. Advised that we have experienced some delays in getting patients accepted due to overwhelming need and staffing shortages within the facilities. Informed the patient of this as well. Will continue to provide updates as I receive them from [facility].
--- NOTE | 2021-02-21 19:21 | NUR ---
PT RESTING IN HIS CHAIR AFTER PM MEDICATION ADMIN AND DINNER. PT MAKES NO C/O PAIN AT THIS TIME AND REMAINS A 2 PERSON ASSIST TO BATHROOM. PT WAS COOPERATIVE, ATE ALL THREE MEALS AND WORKED WITH THERAPY. NO CHANGES NOTED. IV RUNNING AND WNL. BED IN LOW POSITION AND CALL LIGHT WITHIN REACH. STAFF WILL CONTINUE TO MONITOR.
--- NOTE | 2021-02-21 19:50 | NUR ---
ASSUMED CARE. AOX3, 2 PERSON TO GET UP WITH USE OF GAIT BELT. ONCE STANDING APPEARS TO BE STABLE WITH WALKER. UP TO THE BATHROOM. LOOSE BROWN STOOL NOTED. DENIES ANY CHEST PAIN OR CONGESTION. LS CLEAR T/O DIMINISHED IN BASES. COMPRESSION SOCKS IN PLACE. NO CHANGES IN SKIN ASSESSMENT. TELE ON AND RUNNING SINUS. BACK TO CHAIR. CALL LIGHT IN REACH.
--- NOTE | 2021-02-22 05:46 | NUR ---
SHIFT SUMMARY; STILL VERY WEAK, REQUIRING 2 PERSON ASSIST TO GET UP. ONCE HE IS UP HE IS ABLE TO USE THE WALKER STEADY. LOOSE STOOLS NOTED. TEMP AT START OF SHIFT THAT CAME DOWN ON ITS OWN. TYELNOL GIVEN FOR PAIN IN SHOULDER UP NECK ON THE LEFT SIDE. DENIED ANY SYMPTOMS OF INFECTION. NO OTHER CHANGES TO REPORT. CALL LIGHT IN REACH.
[2021-02-22 09:20] LABS: Hematocrit 27.9 % (37.0-53.0); Hemoglobin 8.8 g/dL (13.5-17.5); Mean Corpuscular HGB 31.3 pg (26.0-34.0); Mean Corpuscular HGB Conc 31.5 g/dL (31.5-36.5); Mean Corpuscular Volume 99 fL (80-100); Mean Platelet Volume 10.6 fL (9.1-12.4); Platelet Count 98 K/mm3 (150-400); RDW Coefficient Variation 16.4 % (11.7-14.2); Red Blood Cell Count 2.81 M/mm3 (4.30-5.90); White Blood Cell Count 10.12 K/mm3 (4.00-11.30)
[2021-02-22 09:32] LABS: Albumin, Blood 2.3 g/dL (3.4-5.0); Anion Gap 8 mmol/L (6-16); Blood Urea Nitrogen 69 mg/dL (8-24); Bun/Creatinine Ratio 27.5 (12.0-20.0); CO2, Blood 21 mmol/L (21-32); Calcium, Blood 8.3 mg/dL (8.5-10.1); Chloride, Blood 112 mmol/L (98-108); Creatinine, Blood 2.51 mg/dL (0.60-1.20); Glomerular Filtration Rate 26 (60-); Glucose, Blood 164 mg/dL (70-99); Phosphorus, Blood 1.9 mg/dL (2.5-4.9); Potassium, Blood 3.8 mmol/L (3.5-5.5); Sodium, Blood 141 mmol/L (136-145)
--- NOTE | 2021-02-22 09:57 | NUR ---
Update 02/22/21: Per discussion with Dr. Caro, pt. likely appropriate to discharge home within the next 24-48 hours. No need for SNF at this time. SNF referral cancelled. Will schedule pt. for F/U in anticipation of his discharge.
[2021-02-22 10:28] LABS: BAND PERCENT MAN 6 % (0-8); BASOPHILS PERCENT MAN 1 % (0-2); EOSINOPHILS PERCENT MAN 1 % (0-6); LYMPHOCYTES PERCENT MAN 2 % (21-46); MONOCYTES PERCENT MAN 7 % (4-13); SEG NEUTROPHILS PERCENT MAN 83 % (41-73); TOTAL CELLS COUNTED 100
--- NOTE | 2021-02-22 14:37 | NUR ---
Update 02/22/21: Ordered pt. shower chair and walker with seat from [facility] to be delivered today. Ancipating pt. to likely D/C tomorrow. Discussed discharge planning with pt. His brother will be providing transportation and assisting him with getting medications. HH requested through [facility]. They have been notified that order will be sent. Pt. agreeable to services. Pt. denied any safety concerns or barriers to care.
--- NOTE | 2021-02-22 15:59 | NUR ---
SHIFT SUMMARY NO ACUTE CHANGES NOTED TO PATIENT THIS SHIFT. PT IS AAOX4, ABLE TO MAKE NEEDS KNOWN. PLEASANT AND COOPERATIVE TO CARE. PT MEDICATED FOR PAIN PER EMAR. NO C/O CP, SOB, OR N&V. PT AMBULATES WITH 1P ASSIST W/ FWW TO BATHROOM. PT WORKED WITH THERAPY THIS SHIFT. BED AT LOWEST POSITION. CALL LIGHT WITHIN REACH.
--- NOTE | 2021-02-22 21:30 | NUR ---
ASSUMED CARE. PATIENT HAS IMPROVED WELL, ABLE TO GET IN AND OUT OF THE BED LONG THE BED IS RAISED TO HIS HEIGHT, USES THE WALKER TO GET AND FROM THE BATHROOM. IT IS IN LOW POSITIONS WHERE HE IS UNABLE TO ASSIST HIMSELF. PAIN GOOD AT THIS TIME. GOOD APPETITE. WILL BE GOING TO REHAB SOON A BED GETS OPEN. CALL LIGHT IN REACH WILL CONTINUE TO MONITO.
[2021-02-23 05:02] LABS: Hematocrit 27.8 % (37.0-53.0); Hemoglobin 8.7 g/dL (13.5-17.5)
[2021-02-23 05:19] LABS: Albumin, Blood 2.2 g/dL (3.4-5.0); Anion Gap 6 mmol/L (6-16); Blood Urea Nitrogen 67 mg/dL (8-24); CO2, Blood 22 mmol/L (21-32); Calcium, Blood 8.3 mg/dL (8.5-10.1); Chloride, Blood 112 mmol/L (98-108); Creatinine, Blood 2.31 mg/dL (0.60-1.20); Glomerular Filtration Rate 28 (60-); Glucose, Blood 140 mg/dL (70-99); Phosphorus, Blood 2.5 mg/dL (2.5-4.9); Potassium, Blood 3.6 mmol/L (3.5-5.5); Sodium, Blood 140 mmol/L (136-145)
--- NOTE | 2021-02-23 06:59 | NUR ---
SHIFT SUMMARY: KARISSA CONTINUES TO IMPROVE. HAS BEEN ABLE TO GET UP AND DOWN ALL SHIFT ON HIS OWN LONG THE BED IS ELEVATED FOR HIS HEIGHT. HE USES THE WALKER TO GO TO THE BATHROOM AND BACK. NO PAIN THIS SHIFT. VS HAVE BEEN STABLE. NO ACUTE CHANGES TO NOTE. CALL LIGHT IN REACH.
[2021-02-23] MEDS ORDERED: MASOPHEN325 MG PO (14:44)
[2021-02-23] MEDS ORDERED: FEBUXOSTAT80 MG PO (14:45)
--- NOTE | 2021-02-23 18:29 | NUR ---
DISCHARGE SUMMARY PT DISCHARGE TO HOME AT APPROXIMATELY 1825 THIS SHIFT. PT VERBALIZED UNDERSTANDING OF DISCHARGE ORDERS. NO COMPLAINTS OR ANY ISSUES NOTED TO PATIENT THIS SHIFT. NO ACUTE CHANGES NOTED TO PT THIS SHIFT. IV LINE DISCONTINUED PRIOR TO DC. DISCHARGE PAPERWORK GIVEN TO PATIENT PRIOR TO DC.
--- NOTE | 2021-02-25 08:57 | NUR ---
Important Discharge Details:Patient discharged with [facility]. I spoke with Etienne on Thursday and let them know he was likely discharging. We might need to confirm that they received orders over the weekend if they have not yet contacted pt. Brother installed grab bars in home. I ordered shower chair and walker with seat. Pt. requested that those be delivered to his home. They were requested to be delivered on Thursday. Patient scheduled for F/U appt. with Dr. Caro on 02/27/21 at 10:20 am.
== END 2021-02-23 18:20 | disposition home health service (06) | DRG 683 ==
LOC: ER 09:11 → ERHOLD 09:12 → MEDS 15:43
PROVIDERS: Internal Medicine; Student in an Organized Health Care Education/Training Program; ADMIT Hospitalist
DX: N17.9 Acute kidney failure, unspecified (principal); M62.82 Rhabdomyolysis; Z68.42 Body mass index [BMI] 45.0-49.9, adult; I67.89 Other cerebrovascular disease; I48.21 Permanent atrial fibrillation; E66.01 Morbid (severe) obesity due to excess calories; E11.22 Type 2 diabetes mellitus with diabetic chronic kidney disease; I12.9 Hypertensive chronic kidney disease with stage 1 through stage 4 chronic kidney disease, or unspecified chronic kidney disease; G89.29 Other chronic pain; E87.6 Hypokalemia; M54.9 Dorsalgia, unspecified; S40.212A Abrasion of left shoulder, initial encounter; S50.812A Abrasion of left forearm, initial encounter; W18.30XA Fall on same level, unspecified, initial encounter; M10.9 Gout, unspecified; E11.21 Type 2 diabetes mellitus with diabetic nephropathy; E78.5 Hyperlipidemia, unspecified; G47.33 Obstructive sleep apnea (adult) (pediatric); E11.319 Type 2 diabetes mellitus with unspecified diabetic retinopathy without macular edema; N18.30 Chronic kidney disease, stage 3 unspecified; E11.51 Type 2 diabetes mellitus with diabetic peripheral angiopathy without gangrene; D69.6 Thrombocytopenia, unspecified; E04.2 Nontoxic multinodular goiter; M13.0 Polyarthritis, unspecified; I35.0 Nonrheumatic aortic (valve) stenosis; E21.1 Secondary hyperparathyroidism, not elsewhere classified; D63.1 Anemia in chronic kidney disease; Z98.890 Other specified postprocedural states; Z87.891 Personal history of nicotine dependence; Z79.01 Long term (current) use of anticoagulants; Y92.002 Bathroom of unspecified non-institutional (private) residence as the place of occurrence of the external cause; Z90.49 Acquired absence of other specified parts of digestive tract; Z79.4 Long term (current) use of insulin; Z79.899 Other long term (current) drug therapy; Z79.52 Long term (current) use of systemic steroids
CPT/HCPCS: 36415; 70450; 72125; 73030; 80053; 80069; 82550; 82553; 82947; 83735; 84100; 84484; 85014; 85018; 85025; 93005; 93010; 93306; 97110; 97116; 97161; 97165; 97530; 97535; 99285-25; A9270; J0881; J1940; J7030; J7060

== ENCOUNTER 2021-04-22 10:11 | Inpatient (IN) | payer OTHER ==
[~2021-04-22] VITALS: Ht 180.3 cm; Wt 127.0 kg
[~2021-04-22 10:11] MED LIST changes: +ASCO500 PO; +CYAN500 PO; +FEBUXOSTAT80 MG PO; +MASOPHEN325 MG PO; +POTA20LUD PO; +VITAMIN D31000 UNI1 PO
[2021-04-22 10:50] LABS: BASOPHILS ABSOLUTE AUTO 0.03 K/mm3 (0.00-0.23); BASOPHILS PERCENT AUTO 0 % (0-2); EOSINOPHILS ABSOLUTE AUTO 0.05 K/mm3 (0.00-0.68); EOSINOPHILS PERCENT AUTO 1 % (0-6); Hematocrit 31.8 % (37.0-53.0); Hemoglobin 9.7 g/dL (13.5-17.5); IMMATURE GRAN ABSOLUTE AUTO 0.08 K/mm3 (0.00-0.10); IMMATURE GRAN PERCENT AUTO 1 % (0-1); LYMPHOCYTES ABSOLUTE AUTO 0.81 K/mm3 (0.84-5.20); LYMPHOCYTES PERCENT AUTO 8 % (21-46); MONOCYTES ABSOLUTE AUTO 1.14 K/mm3 (0.16-1.47); MONOCYTES PERCENT AUTO 11 % (4-13); Mean Corpuscular HGB 31.6 pg (26.0-34.0); Mean Corpuscular HGB Conc 30.5 g/dL (31.5-36.5); Mean Corpuscular Volume 104 fL (80-100); Mean Platelet Volume 10.3 fL (9.1-12.4); NEUTROPHILS ABSOLUTE AUTO 7.88 K/mm3 (1.96-9.15); NEUTROPHILS PERCENT AUTO 79 % (41-73); Platelet Count 88 K/mm3 (150-400); RDW Standard Deviation 69.6 fL (35.1-46.3); Red Blood Cell Count 3.07 M/mm3 (4.30-5.90); White Blood Cell Count 9.99 K/mm3 (4.00-11.30)
[2021-04-22 11:06] LABS: Alanine Aminotransfer (ALT/SGP 26 U/L (12-78); Albumin, Blood 2.5 g/dL (3.4-5.0); Albumin/Globulin Ratio 0.6 (0.8-1.8); Alk Phos 67 U/L (50-136); Anion Gap 11 mmol/L (6-16); Aspartate Aminotrans (AST/SGOT 22 U/L (12-37); Bilirubin, Total 0.4 mg/dL (0.1-1.0); Blood Urea Nitrogen 143 mg/dL (8-24); CO2, Blood 13 mmol/L (21-32); Calcium, Blood 9.2 mg/dL (8.5-10.1); Chloride, Blood 111 mmol/L (98-108); Creatinine, Blood 4.47 mg/dL (0.60-1.20); Globulin, Blood 4.5 g/dL (2.2-4.0); Glomerular Filtration Rate 13 (60-); Glucose, Blood 135 mg/dL (70-99); Potassium, Blood 4.6 mmol/L (3.5-5.5); Sodium, Blood 135 mmol/L (136-145); Troponin I <0.015 ng/mL (0.000-0.040)
[2021-04-22 12:24] LABS: SARS-Cov-2 (COVID-19) PCR, MMC NEGATIVE (NEGATIVE)
[2021-04-22 12:36] LABS: Source, Urine Voided
[2021-04-22 12:42] LABS: Appearance, Urine Clear (Clear); Blood, Urine 4+ (Neg); Color, Urine Yellow (P-Yellow); Glucose Qualitative, Urine Neg (Neg); Ketones, Urine Neg (Neg); Leukocyte Esterase, Urine Neg (Neg); Nitrite, Urine Neg (Neg); Protein, Urine 2+ (Neg); Urobilinogen, Urine NORM (Normal)
[2021-04-22 13:23] LABS: Bilirubin, Urine 1+ (Neg)
[2021-04-22 13:28] LABS: Squamous Epithelial Cells Rare /hpf (Few); White Blood Cells, Urine 0-2 /hpf (0-5)
[2021-04-22 13:29] LABS: Bacteria Rare /hpf
[2021-04-22] MEDS ORDERED: POTA20LUD PO (13:57)
[2021-04-23 05:14] LABS: BASOPHILS ABSOLUTE AUTO 0.02 K/mm3 (0.00-0.23); BASOPHILS PERCENT AUTO 0 % (0-2); EOSINOPHILS ABSOLUTE AUTO 0.08 K/mm3 (0.00-0.68); EOSINOPHILS PERCENT AUTO 1 % (0-6); Hematocrit 27.9 % (37.0-53.0); Hemoglobin 9.2 g/dL (13.5-17.5); IMMATURE GRAN ABSOLUTE AUTO 0.03 K/mm3 (0.00-0.10); IMMATURE GRAN PERCENT AUTO 0 % (0-1); LYMPHOCYTES ABSOLUTE AUTO 0.36 K/mm3 (0.84-5.20); LYMPHOCYTES PERCENT AUTO 5 % (21-46); MONOCYTES ABSOLUTE AUTO 0.75 K/mm3 (0.16-1.47); MONOCYTES PERCENT AUTO 10 % (4-13); Mean Corpuscular HGB 31.6 pg (26.0-34.0); Mean Platelet Volume 10.6 fL (9.1-12.4); NEUTROPHILS ABSOLUTE AUTO 6.35 K/mm3 (1.96-9.15); NEUTROPHILS PERCENT AUTO 84 % (41-73); Platelet Count 96 K/mm3 (150-400); RDW Coefficient Variation 17.4 % (11.7-14.2); RDW Standard Deviation 62.4 fL (35.1-46.3); Red Blood Cell Count 2.91 M/mm3 (4.30-5.90); White Blood Cell Count 7.59 K/mm3 (4.00-11.30)
[2021-04-23 05:17] LABS: Mean Corpuscular Volume 96 fL (80-100)
[2021-04-23 05:36] LABS: Albumin, Blood 2.4 g/dL (3.4-5.0); Anion Gap 9 mmol/L (6-16); Blood Urea Nitrogen 142 mg/dL (8-24); Bun/Creatinine Ratio 38.9 (12.0-20.0); CO2, Blood 19 mmol/L (21-32); Calcium, Blood 9.2 mg/dL (8.5-10.1); Chloride, Blood 110 mmol/L (98-108); Creatinine, Blood 3.65 mg/dL (0.60-1.20); Glomerular Filtration Rate 17 (60-); Glucose, Blood 144 mg/dL (70-99); Magnesium, Blood 2.2 mg/dL (1.6-2.4); Phosphorus, Blood 2.8 mg/dL (2.5-4.9); Potassium, Blood 3.9 mmol/L (3.5-5.5); Sodium, Blood 138 mmol/L (136-145)
--- NOTE | 2021-04-23 07:35 | NUR ---
CHILD PSYCHOLOGY TEACHER SUMMARY PATIENT AN ER ADMIT. AOX4. HAD A FAIR SHIFT. HIS VS STABLE. HE HAD A DRESSING THAT WAAS SOAKED AND THAT WAS CHANGED BY THE EXECUTIVE PASTRY CHEF. HE WAS KEPT COMFORTABLE. WILL CONTINUE TO MONITOR.
--- NOTE | 2021-04-23 18:30 | NUR ---
PT REMAIN STABLE, NO ACUTE DISTRESS NOTED.ABD WOUND DRESSING CHANGED, FOUL ORDOR NOTED, SEROSANG DRANAIGE NOTED. TOLERATED MEDS, CALL LIGHT WITHIN REACH AND MONITORING CONTINUES.
--- NOTE | 2021-04-23 18:57 | NUR ---
NEXT OF KIN/CONTACTS: AMAN LANDRY, FAMILY MEMBER, UPDATE 04/23/21: PER CHART REVIEW WITH DR. BRIGGS THIS AM, PT. NOT YET APPROPRIATE FOR DISCHARGE. PT. LIVES INDEPENDENTLY WITH GIRLFRIEND VISITING OFTEN. HE HAS SUPPORT FROM FRIENDS AND NEIGHBORS. [facility] ORDERED AT TIME OF LAST HOSPITALIZATION. PT. HAS DME INCLUDING WALKER, CANE, AND A WALKER WITH SEAT. PT. ABLE TO PERFORM ADLS. HIS GIRLFRIEND JAMES PROVIDES TRANSPORTATION. AT TIME OF LAST HOSPITALIZATION SNF WAS RECOMMENDED BY PT. PT. WAS HESITANT ABOUT SNF AND IMPROVED SUBSTANTIALLY OVER HOSPITAL STAY. HE WAS DISCHARGED HOME WITH HH AT THAT TIME (FEBRUARY 2021). ANTICIPATE NEEDS AT TIME OF DISCHARGE TO INCLUDE: RESUMPTION OF HH ORDER, HOSPITAL F/U WITH PCP WITHIN 5-7 DAYS POST DISCHARGE, F/U NEPHROLOGY.
--- NOTE | 2021-04-24 03:06 | NUR ---
NASCAR RACER SUMMARY PATIENT HAD A FAIR SHIFT, HIS VA REMAINED STABLE. HE WAS ABLE TO GO TO THE BATHROOM WITH LITTLE OR NO ASSISTANCE BUT WITH A WALKER. HE LODGED NIL FRESH COMPLAINT. WILL CONTINUE TO MONITOR PATIENT.
[2021-04-24 05:06] LABS: BASOPHILS ABSOLUTE AUTO 0.02 K/mm3 (0.00-0.23); BASOPHILS PERCENT AUTO 0 % (0-2); EOSINOPHILS ABSOLUTE AUTO 0.07 K/mm3 (0.00-0.68); EOSINOPHILS PERCENT AUTO 1 % (0-6); Hematocrit 26.9 % (37.0-53.0); Hemoglobin 8.7 g/dL (13.5-17.5); IMMATURE GRAN ABSOLUTE AUTO 0.03 K/mm3 (0.00-0.10); IMMATURE GRAN PERCENT AUTO 1 % (0-1); LYMPHOCYTES ABSOLUTE AUTO 0.48 K/mm3 (0.84-5.20); LYMPHOCYTES PERCENT AUTO 8 % (21-46); MONOCYTES ABSOLUTE AUTO 0.67 K/mm3 (0.16-1.47); MONOCYTES PERCENT AUTO 11 % (4-13); Mean Corpuscular HGB Conc 32.3 g/dL (31.5-36.5); Mean Corpuscular Volume 96 fL (80-100); Mean Platelet Volume 10.3 fL (9.1-12.4); NEUTROPHILS ABSOLUTE AUTO 5.08 K/mm3 (1.96-9.15); NEUTROPHILS PERCENT AUTO 80 % (41-73); Platelet Count 105 K/mm3 (150-400); RDW Coefficient Variation 17.4 % (11.7-14.2); RDW Standard Deviation 61.7 fL (35.1-46.3); Red Blood Cell Count 2.81 M/mm3 (4.30-5.90); White Blood Cell Count 6.35 K/mm3 (4.00-11.30)
[2021-04-24 05:20] LABS: Albumin, Blood 2.3 g/dL (3.4-5.0); Anion Gap 8 mmol/L (6-16); Blood Urea Nitrogen 135 mg/dL (8-24); Bun/Creatinine Ratio 44.6 (12.0-20.0); CO2, Blood 22 mmol/L (21-32); Calcium, Blood 9.3 mg/dL (8.5-10.1); Chloride, Blood 110 mmol/L (98-108); Creatinine, Blood 3.03 mg/dL (0.60-1.20); Glomerular Filtration Rate 21 (60-); Glucose, Blood 118 mg/dL (70-99); Magnesium, Blood 2.2 mg/dL (1.6-2.4); Phosphorus, Blood 2.6 mg/dL (2.5-4.9); Potassium, Blood 3.6 mmol/L (3.5-5.5); Sodium, Blood 140 mmol/L (136-145)
--- NOTE | 2021-04-24 15:27 | NUR ---
Update 04/24/21: Per chart review with Dr. Conklin this am, pt. is appropriate today for discharge. See previous notes for discharge plan. Pt. scheduled for hospital F/U 04/30/[address] Soliz's office to schedule pt. for F/U as well. They are scheduling pt. next week and will call him with date/time today. He will have labs completed on Thursday. Pt. denied any further needs.
--- NOTE | 2021-04-24 18:29 | NUR ---
PT DISCHARGED HOME WITH MEDS AND D/C INSTRUCTIONS.IV LINE D/C'D, PRESSURE DRESSING APPLIED. LEFT THE HOSP AT ABOUT 1500 ACCOMPANIED BY STAFF AND GIRLFRIEND. ABD DRESSING CHANGED PRIOR TO LEAVING.
== END 2021-04-24 14:28 | disposition home health service (06) | DRG 683 ==
LOC: ER 10:11 → MEDS 15:38
PROVIDERS: Emergency Medicine; ADMIT Family Medicine
DX: N17.0 Acute kidney failure with tubular necrosis (principal); E87.2 Acidosis; E87.1 Hypo-osmolality and hyponatremia; N25.81 Secondary hyperparathyroidism of renal origin; Z20.822 Contact with and (suspected) exposure to COVID-19; N18.9 Chronic kidney disease, unspecified; D63.1 Anemia in chronic kidney disease; I48.91 Unspecified atrial fibrillation; E11.40 Type 2 diabetes mellitus with diabetic neuropathy, unspecified; E53.8 Deficiency of other specified B group vitamins; E21.3 Hyperparathyroidism, unspecified; D53.1 Other megaloblastic anemias, not elsewhere classified; M10.9 Gout, unspecified; E11.22 Type 2 diabetes mellitus with diabetic chronic kidney disease; Z90.49 Acquired absence of other specified parts of digestive tract; Z98.890 Other specified postprocedural states; Z86.73 Personal history of transient ischemic attack (TIA), and cerebral infarction without residual deficits; Z79.4 Long term (current) use of insulin; Z79.01 Long term (current) use of anticoagulants; Z79.899 Other long term (current) drug therapy
CPT/HCPCS: 36415; 71045; 76770; 80053; 80069; 81001; 82550; 82947; 83735; 84484; 84550; 85025; 93005; 93010; 96374; 99285-25; A9270; J0881; J7030; J7070; U0004

== ENCOUNTER 2021-08-18 16:40 | Emergency (ER) | payer OTHER ==
[~2021-08-18] VITALS: Ht 182.9 cm; Wt 147.4 kg
[~2021-08-18 16:40] MED LIST changes: -CEFP200 PO
[2021-08-18] MEDS ORDERED: CEFP200 PO (17:31)
== END 2021-08-18 17:49 | disposition home or self-care (01) ==
LOC: ER 16:40
DX: L03.115 Cellulitis of right lower limb (principal); I48.91 Unspecified atrial fibrillation; I12.9 Hypertensive chronic kidney disease with stage 1 through stage 4 chronic kidney disease, or unspecified chronic kidney disease; E11.40 Type 2 diabetes mellitus with diabetic neuropathy, unspecified; N18.30 Chronic kidney disease, stage 3 unspecified; E78.5 Hyperlipidemia, unspecified; M10.9 Gout, unspecified; Z79.4 Long term (current) use of insulin; Z79.899 Other long term (current) drug therapy
CPT/HCPCS: 36415; 83605; 87040; 87147; 99283; A9270

== ENCOUNTER → 2021-08-18 | Outpatient (CLI) | payer OTHER ==
[~2021-08-18] MED LIST changes: +CEFP200 PO
[2021-08-18 16:07] LABS: Hematocrit 24.1 % (37.0-53.0); Hemoglobin 7.6 g/dL (13.5-17.5); Mean Corpuscular HGB 28.5 pg (26.0-34.0); Mean Corpuscular HGB Conc 31.5 g/dL (31.5-36.5); Mean Corpuscular Volume 90 fL (80-100); Mean Platelet Volume 10.5 fL (9.1-12.4); Platelet Count 161 K/mm3 (150-400); RDW Coefficient Variation 17.8 % (11.7-14.2); RDW Standard Deviation 58.7 fL (35.1-46.3); Red Blood Cell Count 2.67 M/mm3 (4.30-5.90); White Blood Cell Count 15.86 K/mm3 (4.00-11.30)
[2021-08-18 16:24] LABS: Bun/Creatinine Ratio 24.3 (12.0-20.0); Calcium, Blood 8.1 mg/dL (8.5-10.1); Creatinine, Blood 2.18 mg/dL (0.60-1.20); Potassium, Blood 3.6 mmol/L (3.5-5.5)
[2021-08-18 16:45] LABS: BAND PERCENT MAN 17 % (0-8); BASOPHILS PERCENT MAN 0 % (0-2); EOSINOPHILS PERCENT MAN 0 % (0-6); LYMPHOCYTES ABSOLUTE MAN 0.47 K/mm3 (0.84-5.20); LYMPHOCYTES PERCENT MAN 3 % (21-46); MONOCYTES ABSOLUTE MAN 0.79 K/mm3 (0.16-1.47); MONOCYTES PERCENT MAN 5 % (4-13); NEUTROPHILS ABSOLUTE MAN 14.59 K/mm3 (1.96-9.15); SEG NEUTROPHILS PERCENT MAN 75 % (41-73); TOTAL CELLS COUNTED 100
== END ==
LOC: LAB SHORT 15:57
PROVIDERS: Physician Assistant Medical
DX: L03.317 Cellulitis of buttock (principal)
CPT/HCPCS: 80048; 85025

== ENCOUNTER → 2021-11-20 | Outpatient (CLI) | payer OTHER ==
[~2021-11-20] MED LIST changes: +CEFP200 PO
[2021-11-21 13:46] LABS: Stool Occult Bld Immuno 1 Negative (NEGATIVE)
== END | disposition home or self-care (01) ==
LOC: LAB SHORT 19:15
PROVIDERS: Internal Medicine
DX: D64.9 Anemia, unspecified (principal)
CPT/HCPCS: 82274

== ENCOUNTER 2022-05-02 10:28 | Day surgery (SDC) | payer OTHER ==
[~2022-05-02] VITALS: Ht 182.9 cm; Wt 130.0 kg
[2022-05-02] MEDS ORDERED: ACET500 (11:22)
[2022-05-02] MEDS ORDERED: ARANESP25 MCG/0.1 (11:22)
[2022-05-02] MEDS ORDERED: COLCHICINE0.6 MG (11:23)
[2022-05-02] MEDS ORDERED: Feosol45 MG (11:24)
[2022-05-02] MEDS ORDERED: GLUC500 (11:24)
== END 2022-05-02 13:27 | disposition home or self-care (01) ==
LOC: ORSCSDS 10:28
PROVIDERS: Internal Medicine Gastroenterology
PROC: 0DJD8ZZ Inspection of Lower Intestinal Tract, Via Natural or Artificial Opening Endoscopic (ICD-10-PCS; principal; 2022-05-02 12:00)
DX: D50.8 Other iron deficiency anemias (principal); R19.5 Other fecal abnormalities; K64.8 Other hemorrhoids; I48.91 Unspecified atrial fibrillation; G47.33 Obstructive sleep apnea (adult) (pediatric); E11.22 Type 2 diabetes mellitus with diabetic chronic kidney disease; I12.9 Hypertensive chronic kidney disease with stage 1 through stage 4 chronic kidney disease, or unspecified chronic kidney disease; N18.32 Chronic kidney disease, stage 3b; Z87.891 Personal history of nicotine dependence; Z79.4 Long term (current) use of insulin; Z79.899 Other long term (current) drug therapy
CPT/HCPCS: 82947; J2405; J2704; J7120

== ENCOUNTER 2022-07-18 02:19 | Day surgery (SDC) | payer OTHER ==
[~2022-07-18 02:19] MED LIST changes: +ACET500 PO; +ARANESP25 MCG/0.1 SC; +COLCHICINE0.6 MG; +Feosol45 MG PO; +GLUC500
[2022-07-18] MEDS ORDERED: HUMALOG KW100 UNIT/1 SC (16:32)
[2022-07-18] MEDS ORDERED: Norco 5-325 Ta1 EACH PO (16:33)
== END 2022-07-18 17:34 | disposition home or self-care (01) ==
LOC: ATC 02:19
DX: D75.9 Disease of blood and blood-forming organs, unspecified (principal); R16.2 Hepatomegaly with splenomegaly, not elsewhere classified; I12.9 Hypertensive chronic kidney disease with stage 1 through stage 4 chronic kidney disease, or unspecified chronic kidney disease; E11.22 Type 2 diabetes mellitus with diabetic chronic kidney disease; N18.9 Chronic kidney disease, unspecified; D50.9 Iron deficiency anemia, unspecified; D69.6 Thrombocytopenia, unspecified; E78.5 Hyperlipidemia, unspecified; I48.0 Paroxysmal atrial fibrillation; Z87.891 Personal history of nicotine dependence; Z79.01 Long term (current) use of anticoagulants
CPT/HCPCS: 36415; 86850; 86900; 86901; 86923; J7040; P9016; P9035

== ENCOUNTER 2022-08-01 00:19 | Day surgery (SDC) | payer OTHER ==
[2022-07-31 11:52] LABS: BASOPHILS ABSOLUTE AUTO 0.02 K/mm3 (0.00-0.23); BASOPHILS PERCENT AUTO 1 % (0-2); EOSINOPHILS ABSOLUTE AUTO 0.06 K/mm3 (0.00-0.68); EOSINOPHILS PERCENT AUTO 3 % (0-6); Hematocrit 20.4 % (37.0-53.0); Hemoglobin 6.3 g/dL (13.5-17.5); IMMATURE GRAN ABSOLUTE AUTO 0.02 K/mm3 (0.00-0.10); IMMATURE GRAN PERCENT AUTO 1 % (0-1); LYMPHOCYTES ABSOLUTE AUTO 0.52 K/mm3 (0.84-5.20); LYMPHOCYTES PERCENT AUTO 23 % (21-46); MONOCYTES ABSOLUTE AUTO 0.34 K/mm3 (0.16-1.47); MONOCYTES PERCENT AUTO 15 % (4-13); Mean Corpuscular HGB 33.5 pg (26.0-34.0); Mean Corpuscular HGB Conc 30.9 g/dL (31.5-36.5); Mean Corpuscular Volume 109 fL (80-100); NEUTROPHILS PERCENT AUTO 58 % (41-73); RDW Coefficient Variation 21.2 % (11.7-14.2); RDW Standard Deviation 84.1 fL (35.1-46.3); Red Blood Cell Count 1.88 M/mm3 (4.30-5.90); White Blood Cell Count 2.26 K/mm3 (4.00-11.30)
[2022-07-31 12:02] LABS: Platelet Count 10 K/mm3 (150-400)
[~2022-08-01 00:19] MED LIST changes: +Norco 5-325 Ta1 EACH PO
== END 2022-08-01 17:48 | disposition home or self-care (01) ==
LOC: ATC 00:19 → LAB FUT 07-21 08:10 → EDSTATUS 07-21 08:10 → ATC 07-21 08:10
PROVIDERS: Internal Medicine Hematology & Oncology
DX: I12.9 Hypertensive chronic kidney disease with stage 1 through stage 4 chronic kidney disease, or unspecified chronic kidney disease (principal); D63.1 Anemia in chronic kidney disease; D69.6 Thrombocytopenia, unspecified; E11.22 Type 2 diabetes mellitus with diabetic chronic kidney disease; N18.9 Chronic kidney disease, unspecified; R16.2 Hepatomegaly with splenomegaly, not elsewhere classified; E78.5 Hyperlipidemia, unspecified; Z87.891 Personal history of nicotine dependence; Z79.84 Long term (current) use of oral hypoglycemic drugs; Z79.899 Other long term (current) drug therapy
CPT/HCPCS: 36415; 85025; 86850; 86900; 86901; 86923; J7040; P9016; P9035

== ENCOUNTER 2022-08-26 09:42 | Day surgery (SDC) | payer OTHER ==
[2022-08-25 11:39] LABS: BASOPHILS ABSOLUTE AUTO 0.02 K/mm3 (0.00-0.23); BASOPHILS PERCENT AUTO 1 % (0-2); EOSINOPHILS ABSOLUTE AUTO 0.05 K/mm3 (0.00-0.68); EOSINOPHILS PERCENT AUTO 2 % (0-6); Hematocrit 21.6 % (37.0-53.0); Hemoglobin 6.8 g/dL (13.5-17.5); IMMATURE GRAN ABSOLUTE AUTO 0.01 K/mm3 (0.00-0.10); IMMATURE GRAN PERCENT AUTO 0 % (0-1); LYMPHOCYTES ABSOLUTE AUTO 0.93 K/mm3 (0.84-5.20); LYMPHOCYTES PERCENT AUTO 36 % (21-46); MONOCYTES ABSOLUTE AUTO 0.38 K/mm3 (0.16-1.47); MONOCYTES PERCENT AUTO 15 % (4-13); Mean Corpuscular HGB 33.5 pg (26.0-34.0); Mean Corpuscular HGB Conc 31.5 g/dL (31.5-36.5); Mean Corpuscular Volume 106 fL (80-100); NEUTROPHILS ABSOLUTE AUTO 1.23 K/mm3 (1.96-9.15); NEUTROPHILS PERCENT AUTO 47 % (41-73); RDW Coefficient Variation 23.4 % (11.7-14.2); RDW Standard Deviation 90.2 fL (35.1-46.3); Red Blood Cell Count 2.03 M/mm3 (4.30-5.90); White Blood Cell Count 2.62 K/mm3 (4.00-11.30)
[2022-08-25 11:45] LABS: Platelet Count 12 K/mm3 (150-400)
== END 2022-08-26 16:38 | disposition home or self-care (01) ==
LOC: ATC 09:42 → EDSTATUS 09:59 → ATC 16:38
PROVIDERS: Internal Medicine Hematology & Oncology
DX: D64.9 Anemia, unspecified (principal); D69.6 Thrombocytopenia, unspecified; I12.9 Hypertensive chronic kidney disease with stage 1 through stage 4 chronic kidney disease, or unspecified chronic kidney disease; N18.9 Chronic kidney disease, unspecified; E11.22 Type 2 diabetes mellitus with diabetic chronic kidney disease; Z87.891 Personal history of nicotine dependence; Z79.899 Other long term (current) drug therapy; Z79.4 Long term (current) use of insulin; Z79.01 Long term (current) use of anticoagulants
CPT/HCPCS: 36415; 36430; 85025; 86850; 86900; 86901; 86923; J7040; P9016

== ENCOUNTER 2022-09-02 07:33 | Day surgery (SDC) | payer OTHER ==
[2022-09-01 12:44] LABS: BASOPHILS ABSOLUTE AUTO 0.02 K/mm3 (0.00-0.23); BASOPHILS PERCENT AUTO 1 % (0-2); EOSINOPHILS ABSOLUTE AUTO 0.05 K/mm3 (0.00-0.68); EOSINOPHILS PERCENT AUTO 3 % (0-6); Hematocrit 24.1 % (37.0-53.0); Hemoglobin 7.5 g/dL (13.5-17.5); IMMATURE GRAN ABSOLUTE AUTO 0.01 K/mm3 (0.00-0.10); IMMATURE GRAN PERCENT AUTO 1 % (0-1); LYMPHOCYTES ABSOLUTE AUTO 0.52 K/mm3 (0.84-5.20); LYMPHOCYTES PERCENT AUTO 26 % (21-46); MONOCYTES ABSOLUTE AUTO 0.28 K/mm3 (0.16-1.47); MONOCYTES PERCENT AUTO 14 % (4-13); Mean Corpuscular HGB 32.8 pg (26.0-34.0); Mean Corpuscular HGB Conc 31.1 g/dL (31.5-36.5); Mean Corpuscular Volume 105 fL (80-100); NEUTROPHILS ABSOLUTE AUTO 1.16 K/mm3 (1.96-9.15); NEUTROPHILS PERCENT AUTO 57 % (41-73); RDW Coefficient Variation 22.2 % (11.7-14.2); RDW Standard Deviation 84.7 fL (35.1-46.3); Red Blood Cell Count 2.29 M/mm3 (4.30-5.90); White Blood Cell Count 2.04 K/mm3 (4.00-11.30)
[2022-09-01 12:55] LABS: Platelet Count 7 K/mm3 (150-400)
== END 2022-09-02 09:23 | disposition home or self-care (01) ==
LOC: ATC 07:33
PROVIDERS: Internal Medicine Hematology & Oncology
DX: D69.6 Thrombocytopenia, unspecified (principal); D64.9 Anemia, unspecified; I12.9 Hypertensive chronic kidney disease with stage 1 through stage 4 chronic kidney disease, or unspecified chronic kidney disease; N18.9 Chronic kidney disease, unspecified; E11.22 Type 2 diabetes mellitus with diabetic chronic kidney disease; I48.0 Paroxysmal atrial fibrillation; Z87.891 Personal history of nicotine dependence; Z79.899 Other long term (current) drug therapy; Z79.4 Long term (current) use of insulin; Z79.01 Long term (current) use of anticoagulants
CPT/HCPCS: 36415; 36430; 85025; 86900; 86901; J7050; P9035

== ENCOUNTER 2022-09-11 00:43 | Day surgery (SDC) | payer OTHER ==
[2022-09-08 11:59] LABS: BASOPHILS ABSOLUTE AUTO 0.01 K/mm3 (0.00-0.23); BASOPHILS PERCENT AUTO 1 % (0-2); EOSINOPHILS ABSOLUTE AUTO 0.05 K/mm3 (0.00-0.68); EOSINOPHILS PERCENT AUTO 3 % (0-6); Hematocrit 22.4 % (37.0-53.0); Hemoglobin 6.9 g/dL (13.5-17.5); IMMATURE GRAN ABSOLUTE AUTO 0.01 K/mm3 (0.00-0.10); IMMATURE GRAN PERCENT AUTO 1 % (0-1); LYMPHOCYTES ABSOLUTE AUTO 0.59 K/mm3 (0.84-5.20); LYMPHOCYTES PERCENT AUTO 29 % (21-46); MONOCYTES ABSOLUTE AUTO 0.34 K/mm3 (0.16-1.47); MONOCYTES PERCENT AUTO 17 % (4-13); Mean Corpuscular HGB Conc 30.8 g/dL (31.5-36.5); Mean Corpuscular Volume 107 fL (80-100); NEUTROPHILS ABSOLUTE AUTO 1.01 K/mm3 (1.96-9.15); NEUTROPHILS PERCENT AUTO 50 % (41-73); RDW Coefficient Variation 22.2 % (11.7-14.2); RDW Standard Deviation 85.2 fL (35.1-46.3); Red Blood Cell Count 2.09 M/mm3 (4.30-5.90); White Blood Cell Count 2.01 K/mm3 (4.00-11.30)
[2022-09-08 12:14] LABS: Platelet Count 10 K/mm3 (150-400)
== END 2022-09-11 12:13 | disposition home or self-care (01) ==
LOC: ATC 00:43 → EDSTATUS 07:30 → ATC 12:13
PROVIDERS: Internal Medicine Hematology & Oncology
DX: D69.6 Thrombocytopenia, unspecified (principal); N18.9 Chronic kidney disease, unspecified; I12.9 Hypertensive chronic kidney disease with stage 1 through stage 4 chronic kidney disease, or unspecified chronic kidney disease; D50.9 Iron deficiency anemia, unspecified; E11.22 Type 2 diabetes mellitus with diabetic chronic kidney disease; I48.0 Paroxysmal atrial fibrillation
CPT/HCPCS: 36415; 36430; 85025; 86850; 86900; 86901; 86923; J7050; P9016; P9053

== ENCOUNTER 2022-09-24 00:38 | Day surgery (SDC) | payer OTHER ==
[2022-09-22 12:24] LABS: BASOPHILS ABSOLUTE AUTO 0.02 K/mm3 (0.00-0.23); BASOPHILS PERCENT AUTO 1 % (0-2); EOSINOPHILS ABSOLUTE AUTO 0.04 K/mm3 (0.00-0.68); EOSINOPHILS PERCENT AUTO 2 % (0-6); Hematocrit 20.5 % (37.0-53.0); Hemoglobin 6.4 g/dL (13.5-17.5); IMMATURE GRAN ABSOLUTE AUTO 0.01 K/mm3 (0.00-0.10); IMMATURE GRAN PERCENT AUTO 1 % (0-1); LYMPHOCYTES ABSOLUTE AUTO 0.54 K/mm3 (0.84-5.20); LYMPHOCYTES PERCENT AUTO 28 % (21-46); MONOCYTES ABSOLUTE AUTO 0.33 K/mm3 (0.16-1.47); MONOCYTES PERCENT AUTO 17 % (4-13); Mean Corpuscular HGB 33.2 pg (26.0-34.0); Mean Corpuscular HGB Conc 31.2 g/dL (31.5-36.5); Mean Corpuscular Volume 106 fL (80-100); NEUTROPHILS ABSOLUTE AUTO 0.98 K/mm3 (1.96-9.15); NEUTROPHILS PERCENT AUTO 51 % (41-73); RDW Coefficient Variation 21.7 % (11.7-14.2); RDW Standard Deviation 83.1 fL (35.1-46.3); Red Blood Cell Count 1.93 M/mm3 (4.30-5.90); White Blood Cell Count 1.92 K/mm3 (4.00-11.30)
[2022-09-22 12:50] LABS: Platelet Count 6 K/mm3 (150-400)
== END 2022-09-24 12:20 | disposition home or self-care (01) ==
LOC: ATC 00:38
PROVIDERS: Internal Medicine Hematology & Oncology
DX: D69.6 Thrombocytopenia, unspecified (principal); D63.1 Anemia in chronic kidney disease; E11.22 Type 2 diabetes mellitus with diabetic chronic kidney disease; N18.9 Chronic kidney disease, unspecified; I12.9 Hypertensive chronic kidney disease with stage 1 through stage 4 chronic kidney disease, or unspecified chronic kidney disease; D50.9 Iron deficiency anemia, unspecified; Z87.891 Personal history of nicotine dependence
CPT/HCPCS: 36415; 36430; 85025; 86850; 86900; 86901; 86923; J7050; P9016; P9035

== ENCOUNTER 2022-10-16 01:00 | Day surgery (SDC) | payer OTHER ==
[2022-10-14 11:37] VITALS: BP 159/66
[2022-10-14 11:58] LABS: BASOPHILS PERCENT AUTO 0 % (0-2); EOSINOPHILS ABSOLUTE AUTO 0.02 K/mm3 (0.00-0.68); EOSINOPHILS PERCENT AUTO 1 % (0-6); Hematocrit 19.1 % (37.0-53.0); Hemoglobin 6.1 g/dL (13.5-17.5); IMMATURE GRAN ABSOLUTE AUTO 0.02 K/mm3 (0.00-0.10); IMMATURE GRAN PERCENT AUTO 1 % (0-1); LYMPHOCYTES ABSOLUTE AUTO 0.48 K/mm3 (0.84-5.20); LYMPHOCYTES PERCENT AUTO 32 % (21-46); MONOCYTES ABSOLUTE AUTO 0.34 K/mm3 (0.16-1.47); MONOCYTES PERCENT AUTO 23 % (4-13); Mean Corpuscular HGB 31.4 pg (26.0-34.0); Mean Corpuscular HGB Conc 31.9 g/dL (31.5-36.5); Mean Corpuscular Volume 99 fL (80-100); NEUTROPHILS ABSOLUTE AUTO 0.64 K/mm3 (1.96-9.15); NEUTROPHILS PERCENT AUTO 43 % (41-73); RDW Coefficient Variation 20.5 % (11.7-14.2); RDW Standard Deviation 68.8 fL (35.1-46.3); Red Blood Cell Count 1.94 M/mm3 (4.30-5.90)
[2022-10-14 12:00] LABS: Platelet Count 5 K/mm3 (150-400)
[2022-10-14 12:28] LABS: Albumin/Globulin Ratio 0.8 (0.8-1.8); Bilirubin, Total 0.4 mg/dL (0.1-1.0); Bun/Creatinine Ratio 35.4 (12.0-20.0); Calcium, Blood 8.8 mg/dL (8.5-10.1); Creatinine, Blood 2.43 mg/dL (0.60-1.20); Globulin, Blood 3.6 g/dL (2.2-4.0); Potassium, Blood 4.1 mmol/L (3.5-5.5); Total Protein, Blood 6.6 g/dL (6.4-8.2)
[2022-10-16] VITALS (12 sets, daily range): BP systolic 109–165; BP diastolic 51–69
== END 2022-10-16 18:59 | disposition home or self-care (01) ==
LOC: ATC 01:00
PROVIDERS: Internal Medicine Hematology & Oncology
DX: D69.6 Thrombocytopenia, unspecified (principal); D64.9 Anemia, unspecified; D63.1 Anemia in chronic kidney disease; N18.9 Chronic kidney disease, unspecified; E11.22 Type 2 diabetes mellitus with diabetic chronic kidney disease; I12.9 Hypertensive chronic kidney disease with stage 1 through stage 4 chronic kidney disease, or unspecified chronic kidney disease; Z79.4 Long term (current) use of insulin; D50.9 Iron deficiency anemia, unspecified
CPT/HCPCS: 36415; 36430; 36569; 71045; 80053; 85025; 86850; 86900; 86901; 86923; C1751; J7050; P9016; P9053

== ENCOUNTER 2022-10-17 10:15 | Day surgery (SDC) | payer OTHER ==
[2022-10-17 10:50] VITALS: BP 124/55
--- NOTE | 2022-10-17 12:22 | NUR ---
NOTIFIED DR COSTELLO OFFICE STAFF RE PICC PULLED OUT AND DELAYED CLOTTING. INSTRUCTED PT TO CALL OUR OFFICE IF DRESSING APPEARS SOILED OR BLEEDING HASN'T STOPPED BY THIS EVENING OR THIS WEEKEND, PT VERBALIZED UNDERSTANDING.
== END 2022-10-17 11:15 | disposition home or self-care (01) ==
LOC: ATC 10:15
DX: D64.9 Anemia, unspecified (principal); D69.6 Thrombocytopenia, unspecified; I12.9 Hypertensive chronic kidney disease with stage 1 through stage 4 chronic kidney disease, or unspecified chronic kidney disease; E11.22 Type 2 diabetes mellitus with diabetic chronic kidney disease; N18.9 Chronic kidney disease, unspecified
CPT/HCPCS: 99211

== ENCOUNTER 2022-10-23 08:11 | Day surgery (SDC) | payer OTHER ==
[2022-10-23 08:41] VITALS: BP 124/61
== END 2022-10-23 08:41 | disposition home or self-care (01) ==
LOC: ATC 08:11
DX: Z45.2 Encounter for adjustment and management of vascular access device (principal); D64.9 Anemia, unspecified; D69.6 Thrombocytopenia, unspecified
CPT/HCPCS: 99212

== ENCOUNTER 2022-10-24 00:29 | Day surgery (SDC) | payer OTHER ==
[2022-10-22 11:06] VITALS: BP 157/59
[2022-10-22 11:40] LABS: BASOPHILS ABSOLUTE AUTO 0.01 K/mm3 (0.00-0.23); BASOPHILS PERCENT AUTO 1 % (0-2); EOSINOPHILS ABSOLUTE AUTO 0.03 K/mm3 (0.00-0.68); EOSINOPHILS PERCENT AUTO 1 % (0-6); Hematocrit 19.2 % (37.0-53.0); Hemoglobin 6.3 g/dL (13.5-17.5); IMMATURE GRAN ABSOLUTE AUTO 0.02 K/mm3 (0.00-0.10); IMMATURE GRAN PERCENT AUTO 1 % (0-1); LYMPHOCYTES ABSOLUTE AUTO 0.51 K/mm3 (0.84-5.20); LYMPHOCYTES PERCENT AUTO 24 % (21-46); MONOCYTES ABSOLUTE AUTO 0.38 K/mm3 (0.16-1.47); MONOCYTES PERCENT AUTO 18 % (4-13); Mean Corpuscular HGB 32.6 pg (26.0-34.0); Mean Corpuscular HGB Conc 32.8 g/dL (31.5-36.5); Mean Corpuscular Volume 100 fL (80-100); NEUTROPHILS PERCENT AUTO 56 % (41-73); RDW Standard Deviation 69.5 fL (35.1-46.3); Red Blood Cell Count 1.93 M/mm3 (4.30-5.90); White Blood Cell Count 2.15 K/mm3 (4.00-11.30)
[2022-10-22 11:47] LABS: Platelet Count 5 K/mm3 (150-400)
[2022-10-22 12:00] LABS: Albumin, Blood 3.2 g/dL (3.4-5.0); Albumin/Globulin Ratio 0.9 (0.8-1.8); Bilirubin, Total 0.5 mg/dL (0.1-1.0); Bun/Creatinine Ratio 29.7 (12.0-20.0); Calcium, Blood 8.8 mg/dL (8.5-10.1); Creatinine, Blood 2.39 mg/dL (0.60-1.20); Globulin, Blood 3.4 g/dL (2.2-4.0); Potassium, Blood 4.2 mmol/L (3.5-5.5); Total Protein, Blood 6.6 g/dL (6.4-8.2)
[2022-10-24] VITALS (9 sets, daily range): BP systolic 100–130; BP diastolic 50–78
--- NOTE | 2022-10-24 17:28 | NUR ---
PLATELETS STARTED AT 1430 NOT 1345 INITIALLY DOCUMENTED. PATIENT ONLY RECIEVED SALINE
== END 2022-10-24 19:09 | disposition home or self-care (01) ==
LOC: ATC 00:29
PROVIDERS: Internal Medicine Hematology & Oncology
DX: D50.9 Iron deficiency anemia, unspecified (principal); D69.6 Thrombocytopenia, unspecified; R16.0 Hepatomegaly, not elsewhere classified; D72.819 Decreased white blood cell count, unspecified; I12.9 Hypertensive chronic kidney disease with stage 1 through stage 4 chronic kidney disease, or unspecified chronic kidney disease; E11.22 Type 2 diabetes mellitus with diabetic chronic kidney disease; N18.30 Chronic kidney disease, stage 3 unspecified; E78.5 Hyperlipidemia, unspecified; I48.0 Paroxysmal atrial fibrillation; G47.33 Obstructive sleep apnea (adult) (pediatric); Z87.891 Personal history of nicotine dependence; Z79.01 Long term (current) use of anticoagulants; Z79.4 Long term (current) use of insulin; Z79.899 Other long term (current) drug therapy
CPT/HCPCS: 36430; 36592; 80053; 85025; 86850; 86900; 86901; 86923; J7050; P9016; P9053

== ENCOUNTER 2022-10-29 02:06 | Day surgery (SDC) | payer OTHER ==
[2022-10-28 10:27] LABS: BASOPHILS ABSOLUTE AUTO 0.01 K/mm3 (0.00-0.23); BASOPHILS PERCENT AUTO 1 % (0-2); EOSINOPHILS ABSOLUTE AUTO 0.04 K/mm3 (0.00-0.68); EOSINOPHILS PERCENT AUTO 3 % (0-6); Hematocrit 20.6 % (37.0-53.0); Hemoglobin 6.7 g/dL (13.5-17.5); IMMATURE GRAN ABSOLUTE AUTO 0.01 K/mm3 (0.00-0.10); IMMATURE GRAN PERCENT AUTO 1 % (0-1); LYMPHOCYTES ABSOLUTE AUTO 0.39 K/mm3 (0.84-5.20); LYMPHOCYTES PERCENT AUTO 24 % (21-46); MONOCYTES ABSOLUTE AUTO 0.29 K/mm3 (0.16-1.47); MONOCYTES PERCENT AUTO 18 % (4-13); Mean Corpuscular HGB 31.8 pg (26.0-34.0); Mean Corpuscular HGB Conc 32.5 g/dL (31.5-36.5); Mean Corpuscular Volume 98 fL (80-100); NEUTROPHILS ABSOLUTE AUTO 0.87 K/mm3 (1.96-9.15); NEUTROPHILS PERCENT AUTO 54 % (41-73); RDW Coefficient Variation 20.4 % (11.7-14.2); RDW Standard Deviation 68.7 fL (35.1-46.3); Red Blood Cell Count 2.11 M/mm3 (4.30-5.90); White Blood Cell Count 1.61 K/mm3 (4.00-11.30)
[2022-10-28 10:29] VITALS: BP 155/66
[2022-10-28 10:31] LABS: Platelet Count 7 K/mm3 (150-400)
[2022-10-28 10:52] LABS: Albumin, Blood 3.1 g/dL (3.4-5.0); Albumin/Globulin Ratio 0.9 (0.8-1.8); Bilirubin, Total 0.5 mg/dL (0.1-1.0); Bun/Creatinine Ratio 30.3 (12.0-20.0); Calcium, Blood 8.6 mg/dL (8.5-10.1); Creatinine, Blood 2.34 mg/dL (0.60-1.20); Globulin, Blood 3.5 g/dL (2.2-4.0); Potassium, Blood 4.5 mmol/L (3.5-5.5); Total Protein, Blood 6.6 g/dL (6.4-8.2)
[2022-10-29] VITALS (8 sets, daily range): BP systolic 116–144; BP diastolic 61–81
== END 2022-10-29 23:27 | disposition home or self-care (01) ==
LOC: ATC 02:06
PROVIDERS: Internal Medicine Hematology & Oncology
DX: D64.9 Anemia, unspecified (principal); D69.6 Thrombocytopenia, unspecified
CPT/HCPCS: 36430; 36592; 80053; 85025; 86850; 86900; 86901; 86923; J7050; P9016; P9035

== ENCOUNTER 2022-11-07 01:38 | Day surgery (SDC) | payer OTHER ==
[2022-11-04 10:55] VITALS: BP 139/64
[2022-11-04 11:06] LABS: BASOPHILS ABSOLUTE AUTO 0.01 K/mm3 (0.00-0.23); BASOPHILS PERCENT AUTO 1 % (0-2); EOSINOPHILS ABSOLUTE AUTO 0.02 K/mm3 (0.00-0.68); EOSINOPHILS PERCENT AUTO 1 % (0-6); Hematocrit 22.4 % (37.0-53.0); Hemoglobin 7.2 g/dL (13.5-17.5); IMMATURE GRAN ABSOLUTE AUTO 0.01 K/mm3 (0.00-0.10); IMMATURE GRAN PERCENT AUTO 1 % (0-1); LYMPHOCYTES ABSOLUTE AUTO 0.44 K/mm3 (0.84-5.20); LYMPHOCYTES PERCENT AUTO 30 % (21-46); MONOCYTES ABSOLUTE AUTO 0.25 K/mm3 (0.16-1.47); MONOCYTES PERCENT AUTO 17 % (4-13); Mean Corpuscular HGB 31.4 pg (26.0-34.0); Mean Corpuscular HGB Conc 32.1 g/dL (31.5-36.5); Mean Corpuscular Volume 98 fL (80-100); NEUTROPHILS ABSOLUTE AUTO 0.76 K/mm3 (1.96-9.15); NEUTROPHILS PERCENT AUTO 51 % (41-73); RDW Standard Deviation 63.1 fL (35.1-46.3); Red Blood Cell Count 2.29 M/mm3 (4.30-5.90); White Blood Cell Count 1.49 K/mm3 (4.00-11.30)
[2022-11-04 11:27] LABS: Platelet Count 3 K/mm3 (150-400)
[2022-11-04 11:34] LABS: Albumin, Blood 3.1 g/dL (3.4-5.0); Albumin/Globulin Ratio 0.9 (0.8-1.8); Bilirubin, Total 0.4 mg/dL (0.1-1.0); Bun/Creatinine Ratio 34.8 (12.0-20.0); Calcium, Blood 8.8 mg/dL (8.5-10.1); Creatinine, Blood 2.04 mg/dL (0.60-1.20); Globulin, Blood 3.5 g/dL (2.2-4.0); Potassium, Blood 4.3 mmol/L (3.5-5.5); Total Protein, Blood 6.6 g/dL (6.4-8.2)
[2022-11-07 13:31] VITALS: BP 164/81
[2022-11-07 13:49] VITALS: BP 148/60
[2022-11-07 14:11] LABS: BASOPHILS ABSOLUTE AUTO 0.01 K/mm3 (0.00-0.23); BASOPHILS PERCENT AUTO 1 % (0-2); EOSINOPHILS ABSOLUTE AUTO 0.03 K/mm3 (0.00-0.68); EOSINOPHILS PERCENT AUTO 2 % (0-6); Hematocrit 20.7 % (37.0-53.0); Hemoglobin 6.8 g/dL (13.5-17.5); IMMATURE GRAN ABSOLUTE AUTO 0.05 K/mm3 (0.00-0.10); IMMATURE GRAN PERCENT AUTO 3 % (0-1); LYMPHOCYTES ABSOLUTE AUTO 0.57 K/mm3 (0.84-5.20); LYMPHOCYTES PERCENT AUTO 34 % (21-46); MONOCYTES ABSOLUTE AUTO 0.26 K/mm3 (0.16-1.47); MONOCYTES PERCENT AUTO 16 % (4-13); Mean Corpuscular HGB 31.2 pg (26.0-34.0); Mean Corpuscular HGB Conc 32.9 g/dL (31.5-36.5); Mean Corpuscular Volume 95 fL (80-100); NEUTROPHILS ABSOLUTE AUTO 0.76 K/mm3 (1.96-9.15); NEUTROPHILS PERCENT AUTO 45 % (41-73); NRBC ABSOLUTE 0.02 K/mm3 (0.00-0.02); NRBC Auto 1.2 /100 WBC (0.0-0.2); RDW Standard Deviation 60.8 fL (35.1-46.3); Red Blood Cell Count 2.18 M/mm3 (4.30-5.90); White Blood Cell Count 1.68 K/mm3 (4.00-11.30)
[2022-11-07 14:15] LABS: Platelet Count 5 K/mm3 (150-400)
[2022-11-07 14:27] LABS: Anion Gap 2 mmol/L (6-16); Blood Urea Nitrogen 79 mg/dL (8-24); Bun/Creatinine Ratio 37.1 (12.0-20.0); CO2, Blood 24 mmol/L (21-32); Calcium, Blood 8.8 mg/dL (8.5-10.1); Chloride, Blood 115 mmol/L (98-108); Creatinine, Blood 2.13 mg/dL (0.60-1.20); Ferritin, Serum 386 ng/mL (26-388); Glomerular Filtration Rate 33 (60-); Glucose, Blood 118 mg/dL (70-99); Iron Serum 106 ug/dL (65-175); Percent Saturation 48.4 % (20.0-50.0); Phosphorus, Blood 3.9 mg/dL (2.5-4.9); Sodium, Blood 141 mmol/L (136-145); Total Iron Binding Capacity 219 ug/dL (250-450)
[2022-11-07 14:53] VITALS: BP 150/59
== END 2022-11-07 14:53 | disposition home or self-care (01) ==
LOC: ATC 01:38
PROVIDERS: Internal Medicine Hematology & Oncology
DX: D64.9 Anemia, unspecified (principal); D69.6 Thrombocytopenia, unspecified; I12.9 Hypertensive chronic kidney disease with stage 1 through stage 4 chronic kidney disease, or unspecified chronic kidney disease; E11.22 Type 2 diabetes mellitus with diabetic chronic kidney disease; N18.4 Chronic kidney disease, stage 4 (severe); E55.9 Vitamin D deficiency, unspecified; I48.0 Paroxysmal atrial fibrillation; Z87.891 Personal history of nicotine dependence; Z79.899 Other long term (current) drug therapy
CPT/HCPCS: 36430; 36592; 80053; 80069; 82306; 82728; 83540; 83550; 83970; 85025; 86900; 86901; J7050; P9035

== ENCOUNTER 2022-11-11 01:44 | Day surgery (SDC) | payer OTHER ==
[2022-11-11 10:09] VITALS: BP 127/77
[2022-11-11 10:40] LABS: BASOPHILS ABSOLUTE AUTO 0.01 K/mm3 (0.00-0.23); BASOPHILS PERCENT AUTO 1 % (0-2); EOSINOPHILS ABSOLUTE AUTO 0.02 K/mm3 (0.00-0.68); EOSINOPHILS PERCENT AUTO 1 % (0-6); Hematocrit 19.6 % (37.0-53.0); Hemoglobin 6.6 g/dL (13.5-17.5); IMMATURE GRAN ABSOLUTE AUTO 0.01 K/mm3 (0.00-0.10); IMMATURE GRAN PERCENT AUTO 1 % (0-1); LYMPHOCYTES ABSOLUTE AUTO 0.43 K/mm3 (0.84-5.20); LYMPHOCYTES PERCENT AUTO 25 % (21-46); MONOCYTES ABSOLUTE AUTO 0.32 K/mm3 (0.16-1.47); MONOCYTES PERCENT AUTO 19 % (4-13); Mean Corpuscular HGB 31.6 pg (26.0-34.0); Mean Corpuscular HGB Conc 33.7 g/dL (31.5-36.5); Mean Corpuscular Volume 94 fL (80-100); NEUTROPHILS ABSOLUTE AUTO 0.93 K/mm3 (1.96-9.15); NEUTROPHILS PERCENT AUTO 54 % (41-73); RDW Coefficient Variation 19.7 % (11.7-14.2); Red Blood Cell Count 2.09 M/mm3 (4.30-5.90); White Blood Cell Count 1.72 K/mm3 (4.00-11.30)
[2022-11-11 10:47] LABS: Platelet Count 9 K/mm3 (150-400)
[2022-11-11 11:01] LABS: Albumin/Globulin Ratio 0.9 (0.8-1.8); Bilirubin, Total 0.4 mg/dL (0.1-1.0); Bun/Creatinine Ratio 36.8 (12.0-20.0); Calcium, Blood 8.7 mg/dL (8.5-10.1); Creatinine, Blood 2.2 mg/dL (0.60-1.20); Globulin, Blood 3.5 g/dL (2.2-4.0); Potassium, Blood 4.3 mmol/L (3.5-5.5); Total Protein, Blood 6.5 g/dL (6.4-8.2)
== END 2022-11-11 10:35 | disposition home or self-care (01) ==
LOC: ATC 01:44
PROVIDERS: Internal Medicine Hematology & Oncology
DX: D69.6 Thrombocytopenia, unspecified (principal); Z87.891 Personal history of nicotine dependence; D63.1 Anemia in chronic kidney disease; E11.22 Type 2 diabetes mellitus with diabetic chronic kidney disease; D50.9 Iron deficiency anemia, unspecified; I12.9 Hypertensive chronic kidney disease with stage 1 through stage 4 chronic kidney disease, or unspecified chronic kidney disease
CPT/HCPCS: 36592; 80053; 85025

== ENCOUNTER 2022-11-28 02:35 | Day surgery (SDC) | payer OTHER ==
[2022-11-25 10:38] VITALS: BP 158/61
[2022-11-25 10:51] LABS: BASOPHILS ABSOLUTE AUTO 0.02 K/mm3 (0.00-0.23); BASOPHILS PERCENT AUTO 1 % (0-2); EOSINOPHILS ABSOLUTE AUTO 0.03 K/mm3 (0.00-0.68); EOSINOPHILS PERCENT AUTO 1 % (0-6); Hemoglobin 7.5 g/dL (13.5-17.5); IMMATURE GRAN ABSOLUTE AUTO 0.03 K/mm3 (0.00-0.10); IMMATURE GRAN PERCENT AUTO 1 % (0-1); LYMPHOCYTES ABSOLUTE AUTO 1.14 K/mm3 (0.84-5.20); LYMPHOCYTES PERCENT AUTO 33 % (21-46); MONOCYTES ABSOLUTE AUTO 0.46 K/mm3 (0.16-1.47); MONOCYTES PERCENT AUTO 13 % (4-13); Mean Corpuscular HGB 32.2 pg (26.0-34.0); Mean Corpuscular HGB Conc 34.1 g/dL (31.5-36.5); Mean Corpuscular Volume 94 fL (80-100); NEUTROPHILS PERCENT AUTO 52 % (41-73); NRBC ABSOLUTE 0.02 K/mm3 (0.00-0.02); NRBC Auto 0.6 /100 WBC (0.0-0.2); RDW Coefficient Variation 18.9 % (11.7-14.2); RDW Standard Deviation 58.4 fL (35.1-46.3); Red Blood Cell Count 2.33 M/mm3 (4.30-5.90); White Blood Cell Count 3.48 K/mm3 (4.00-11.30)
[2022-11-25 11:02] LABS: Platelet Count 6 K/mm3 (150-400)
[2022-11-25 11:14] LABS: Albumin, Blood 3.1 g/dL (3.4-5.0); Albumin/Globulin Ratio 0.9 (0.8-1.8); Bilirubin, Total 0.5 mg/dL (0.1-1.0); Bun/Creatinine Ratio 31.4 (12.0-20.0); Calcium, Blood 8.8 mg/dL (8.5-10.1); Creatinine, Blood 2.07 mg/dL (0.60-1.20); Globulin, Blood 3.3 g/dL (2.2-4.0); Potassium, Blood 3.3 mmol/L (3.5-5.5); Total Protein, Blood 6.4 g/dL (6.4-8.2)
[~2022-11-28 02:35] MED LIST changes: +DEXA4 PO
[2022-11-28 13:41] VITALS: BP 147/67
[2022-11-28 14:03] VITALS: BP 122/56
[2022-11-28 14:45] VITALS: BP 123/61
[2022-11-28 15:07] VITALS: BP 118/58
[2022-11-28 16:08] VITALS: BP 122/58
[2022-11-28 16:25] VITALS: BP 128/77
== END 2022-11-28 16:28 | disposition home or self-care (01) ==
LOC: ATC 02:35
PROVIDERS: Internal Medicine Hematology & Oncology
DX: D64.9 Anemia, unspecified (principal); D69.6 Thrombocytopenia, unspecified; E11.9 Type 2 diabetes mellitus without complications; I10 Essential (primary) hypertension; Z87.891 Personal history of nicotine dependence
CPT/HCPCS: 36430; 36592; 80053; 85025; 86850; 86900; 86901; 86923; J7050; P9016; P9053

== ENCOUNTER 2022-12-05 04:06 | Day surgery (SDC) | payer OTHER ==
[2022-12-02 10:31] VITALS: BP 144/64
[2022-12-02 11:26] LABS: Alanine Aminotransfer (ALT/SGP 17 U/L (12-78); Albumin, Blood 2.8 g/dL (3.4-5.0); Albumin/Globulin Ratio 0.9 (0.8-1.8); Alk Phos 78 U/L (50-136); Anion Gap 8 mmol/L (6-16); Aspartate Aminotrans (AST/SGOT 6 U/L (12-37); Bilirubin, Total 0.5 mg/dL (0.1-1.0); Blood Urea Nitrogen 63 mg/dL (8-24); Bun/Creatinine Ratio 27.2 (12.0-20.0); CO2, Blood 24 mmol/L (21-32); Calcium, Blood 8.3 mg/dL (8.5-10.1); Chloride, Blood 112 mmol/L (98-108); Creatinine, Blood 2.32 mg/dL (0.60-1.20); Free Thyroxine 1.08 ng/dL (0.70-1.60); Globulin, Blood 3.2 g/dL (2.2-4.0); Glomerular Filtration Rate 30 (60-); Glucose, Blood 97 mg/dL (70-99); Phosphorus, Blood 2.9 mg/dL (2.5-4.9); Potassium, Blood 3.6 mmol/L (3.5-5.5); Sodium, Blood 144 mmol/L (136-145)
[2022-12-02 11:35] LABS: BASOPHILS PERCENT AUTO 0 % (0-2); EOSINOPHILS ABSOLUTE AUTO 0.01 K/mm3 (0.00-0.68); EOSINOPHILS PERCENT AUTO 1 % (0-6); Hematocrit 18.4 % (37.0-53.0); Hemoglobin 6.1 g/dL (13.5-17.5); IMMATURE GRAN ABSOLUTE AUTO 0.02 K/mm3 (0.00-0.10); IMMATURE GRAN PERCENT AUTO 2 % (0-1); LYMPHOCYTES ABSOLUTE AUTO 0.37 K/mm3 (0.84-5.20); LYMPHOCYTES PERCENT AUTO 30 % (21-46); MONOCYTES ABSOLUTE AUTO 0.26 K/mm3 (0.16-1.47); MONOCYTES PERCENT AUTO 21 % (4-13); Mean Corpuscular HGB 31.3 pg (26.0-34.0); Mean Corpuscular HGB Conc 33.2 g/dL (31.5-36.5); Mean Corpuscular Volume 94 fL (80-100); NEUTROPHILS ABSOLUTE AUTO 0.57 K/mm3 (1.96-9.15); NEUTROPHILS PERCENT AUTO 46 % (41-73); RDW Coefficient Variation 18.7 % (11.7-14.2); RDW Standard Deviation 54.8 fL (35.1-46.3); Red Blood Cell Count 1.95 M/mm3 (4.30-5.90); White Blood Cell Count 1.23 K/mm3 (4.00-11.30)
[2022-12-02 12:01] LABS: Platelet Count 5 K/mm3 (150-400)
[2022-12-05] VITALS (8 sets, daily range): BP systolic 109–139; BP diastolic 56–70
== END 2022-12-05 18:00 | disposition home or self-care (01) ==
LOC: ATC 04:06
PROVIDERS: Internal Medicine Hematology & Oncology
DX: D64.9 Anemia, unspecified (principal); D69.6 Thrombocytopenia, unspecified; E11.21 Type 2 diabetes mellitus with diabetic nephropathy; R79.89 Other specified abnormal findings of blood chemistry; E78.5 Hyperlipidemia, unspecified; I48.0 Paroxysmal atrial fibrillation; G47.33 Obstructive sleep apnea (adult) (pediatric); I12.9 Hypertensive chronic kidney disease with stage 1 through stage 4 chronic kidney disease, or unspecified chronic kidney disease; E11.22 Type 2 diabetes mellitus with diabetic chronic kidney disease; N18.9 Chronic kidney disease, unspecified; Z79.01 Long term (current) use of anticoagulants; Z79.899 Other long term (current) drug therapy
CPT/HCPCS: 36592; 80053; 83036; 84100; 84439; 84443; 85025; 86850; 86900; 86901; 86923; J7050; P9016; P9035

== ENCOUNTER 2022-12-11 03:41 | Day surgery (SDC) | payer OTHER ==
[2022-12-09 10:00] VITALS: BP 132/66
[2022-12-09 10:23] LABS: Hematocrit 18.9 % (37.0-53.0); Hemoglobin 6.3 g/dL (13.5-17.5); Mean Corpuscular HGB Conc 33.3 g/dL (31.5-36.5); Mean Corpuscular Volume 93 fL (80-100); RDW Coefficient Variation 18.6 % (11.7-14.2); RDW Standard Deviation 57.1 fL (35.1-46.3); Red Blood Cell Count 2.03 M/mm3 (4.30-5.90); White Blood Cell Count 1.34 K/mm3 (4.00-11.30)
[2022-12-09 10:30] LABS: Albumin, Blood 2.7 g/dL (3.4-5.0); Albumin/Globulin Ratio 0.8 (0.8-1.8); Bilirubin, Total 0.5 mg/dL (0.1-1.0); Calcium, Blood 8.2 mg/dL (8.5-10.1); Creatinine, Blood 2.15 mg/dL (0.60-1.20); Globulin, Blood 3.3 g/dL (2.2-4.0); Potassium, Blood 3.6 mmol/L (3.5-5.5)
[2022-12-09 10:33] LABS: Platelet Count 7 K/mm3 (150-400)
[2022-12-09 11:11] LABS: BAND PERCENT MAN 6 % (0-8); BASOPHILS ABSOLUTE MAN 0.01 K/mm3 (0.00-0.23); BASOPHILS PERCENT MAN 1 % (0-2); EOSINOPHILS ABSOLUTE MAN 0.04 K/mm3 (0.00-0.68); EOSINOPHILS PERCENT MAN 3 % (0-6); LYMPHOCYTES % ATYPICAL MANUAL 1 % (0-0); LYMPHOCYTES PERCENT MAN 29 % (21-46); MONOCYTES ABSOLUTE MAN 0.13 K/mm3 (0.16-1.47); MONOCYTES PERCENT MAN 10 % (4-13); NEUTROPHILS ABSOLUTE MAN 0.75 K/mm3 (1.96-9.15); SEG NEUTROPHILS PERCENT MAN 50 % (41-73); TOTAL CELLS COUNTED 100
[2022-12-11] VITALS (8 sets, daily range): BP systolic 114–147; BP diastolic 58–74
== END 2022-12-11 11:56 | disposition home or self-care (01) ==
LOC: ATC 03:41
PROVIDERS: Internal Medicine Hematology & Oncology
DX: D64.9 Anemia, unspecified (principal); D69.6 Thrombocytopenia, unspecified; R79.89 Other specified abnormal findings of blood chemistry; E11.21 Type 2 diabetes mellitus with diabetic nephropathy
CPT/HCPCS: 36430; 36592; 80053; 85025; 86850; 86900; 86901; 86923; J7050; P9016; P9035

== ENCOUNTER 2023-01-09 01:47 | Day surgery (SDC) | payer OTHER ==
[2023-01-07 09:30] VITALS: BP 126/84
[2023-01-07 09:46] LABS: BASOPHILS ABSOLUTE AUTO 0.01 K/mm3 (0.00-0.23); BASOPHILS PERCENT AUTO 1 % (0-2); EOSINOPHILS ABSOLUTE AUTO 0.01 K/mm3 (0.00-0.68); EOSINOPHILS PERCENT AUTO 1 % (0-6); Hematocrit 19.8 % (37.0-53.0); Hemoglobin 6.7 g/dL (13.5-17.5); IMMATURE GRAN ABSOLUTE AUTO 0.01 K/mm3 (0.00-0.10); IMMATURE GRAN PERCENT AUTO 1 % (0-1); LYMPHOCYTES ABSOLUTE AUTO 0.52 K/mm3 (0.84-5.20); LYMPHOCYTES PERCENT AUTO 47 % (21-46); MONOCYTES ABSOLUTE AUTO 0.13 K/mm3 (0.16-1.47); MONOCYTES PERCENT AUTO 12 % (4-13); Mean Corpuscular HGB 30.5 pg (26.0-34.0); Mean Corpuscular HGB Conc 33.8 g/dL (31.5-36.5); Mean Corpuscular Volume 90 fL (80-100); NEUTROPHILS ABSOLUTE AUTO 0.43 K/mm3 (1.96-9.15); NEUTROPHILS PERCENT AUTO 39 % (41-73); RDW Coefficient Variation 15.9 % (11.7-14.2); RDW Standard Deviation 49.6 fL (35.1-46.3); White Blood Cell Count 1.11 K/mm3 (4.00-11.30)
[2023-01-07 09:51] LABS: Platelet Count 3 K/mm3 (150-400)
[2023-01-07 10:03] LABS: Albumin, Blood 2.6 g/dL (3.4-5.0); Albumin/Globulin Ratio 0.9 (0.8-1.8); Bilirubin, Total 0.3 mg/dL (0.1-1.0); Bun/Creatinine Ratio 24.9 (12.0-20.0); Calcium, Blood 8.2 mg/dL (8.5-10.1); Creatinine, Blood 1.97 mg/dL (0.60-1.20); Globulin, Blood 2.9 g/dL (2.2-4.0); Potassium, Blood 4.5 mmol/L (3.5-5.5); Total Protein, Blood 5.5 g/dL (6.4-8.2)
[2023-01-09] VITALS (8 sets, daily range): BP systolic 111–134; BP diastolic 50–63
[~2023-01-09 01:47] MED LIST changes: +AMOCLA875 PO
== END 2023-01-09 17:38 | disposition home or self-care (01) ==
LOC: ATC 01:47
PROVIDERS: Internal Medicine Hematology & Oncology
DX: D69.6 Thrombocytopenia, unspecified (principal); E11.22 Type 2 diabetes mellitus with diabetic chronic kidney disease; I12.9 Hypertensive chronic kidney disease with stage 1 through stage 4 chronic kidney disease, or unspecified chronic kidney disease; N18.9 Chronic kidney disease, unspecified; D63.1 Anemia in chronic kidney disease; E78.5 Hyperlipidemia, unspecified; I48.0 Paroxysmal atrial fibrillation; Z87.891 Personal history of nicotine dependence; D50.9 Iron deficiency anemia, unspecified
CPT/HCPCS: 36430; 36592; 80053; 85025; 86850; 86900; 86901; 86923; J7050; P9016; P9035

== ENCOUNTER 2023-01-14 01:43 | Day surgery (SDC) | payer OTHER ==
[2023-01-13 09:30] VITALS: BP 161/57
[2023-01-13 10:05] LABS: BASOPHILS PERCENT AUTO 0 % (0-2); EOSINOPHILS ABSOLUTE AUTO 0.02 K/mm3 (0.00-0.68); EOSINOPHILS PERCENT AUTO 2 % (0-6); Hematocrit 21.4 % (37.0-53.0); Hemoglobin 7.3 g/dL (13.5-17.5); IMMATURE GRAN ABSOLUTE AUTO 0.01 K/mm3 (0.00-0.10); IMMATURE GRAN PERCENT AUTO 1 % (0-1); LYMPHOCYTES ABSOLUTE AUTO 0.53 K/mm3 (0.84-5.20); LYMPHOCYTES PERCENT AUTO 43 % (21-46); MONOCYTES ABSOLUTE AUTO 0.23 K/mm3 (0.16-1.47); MONOCYTES PERCENT AUTO 19 % (4-13); Mean Corpuscular HGB 30.8 pg (26.0-34.0); Mean Corpuscular HGB Conc 34.1 g/dL (31.5-36.5); Mean Corpuscular Volume 90 fL (80-100); NEUTROPHILS ABSOLUTE AUTO 0.45 K/mm3 (1.96-9.15); NEUTROPHILS PERCENT AUTO 36 % (41-73); RDW Coefficient Variation 15.9 % (11.7-14.2); RDW Standard Deviation 50.2 fL (35.1-46.3); Red Blood Cell Count 2.37 M/mm3 (4.30-5.90); White Blood Cell Count 1.24 K/mm3 (4.00-11.30)
[2023-01-13 10:14] LABS: Platelet Count 6 K/mm3 (150-400)
[2023-01-13 10:24] LABS: Albumin, Blood 2.8 g/dL (3.4-5.0); Albumin/Globulin Ratio 0.9 (0.8-1.8); Bilirubin, Total 0.5 mg/dL (0.1-1.0); Bun/Creatinine Ratio 25.5 (12.0-20.0); Calcium, Blood 8.2 mg/dL (8.5-10.1); Creatinine, Blood 2.04 mg/dL (0.60-1.20); Globulin, Blood 3.2 g/dL (2.2-4.0); Potassium, Blood 4.1 mmol/L (3.5-5.5)
[2023-01-14 07:49] VITALS: BP 143/55
[2023-01-14 08:06] VITALS: BP 130/58
[2023-01-14 09:18] VITALS: BP 135/66
[2023-01-14 09:44] VITALS: BP 122/65
[2023-01-14 10:44] VITALS: BP 138/56
[2023-01-14 11:04] VITALS: BP 130/67
== END 2023-01-14 11:07 | disposition home or self-care (01) ==
LOC: LAB 01:43 → ATC 01:43
PROVIDERS: Internal Medicine Hematology & Oncology
DX: D64.9 Anemia, unspecified (principal); D69.6 Thrombocytopenia, unspecified
CPT/HCPCS: 36430; 36592; 80053; 85025; 86850; 86900; 86901; 86923; J7050; P9016; P9035

== ENCOUNTER 2023-01-27 02:55 | Day surgery (SDC) | payer OTHER ==
[2023-01-27 09:30] VITALS: BP 147/81
[2023-01-27 09:56] LABS: Hemoglobin 7.1 g/dL (13.5-17.5); Mean Corpuscular HGB 29.7 pg (26.0-34.0); Mean Corpuscular HGB Conc 32.3 g/dL (31.5-36.5); Mean Corpuscular Volume 92 fL (80-100); RDW Coefficient Variation 17.4 % (11.7-14.2); RDW Standard Deviation 51.2 fL (35.1-46.3); Red Blood Cell Count 2.39 M/mm3 (4.30-5.90); White Blood Cell Count 1.12 K/mm3 (4.00-11.30)
[2023-01-27 10:05] LABS: Albumin, Blood 2.9 g/dL (3.4-5.0); Albumin/Globulin Ratio 0.9 (0.8-1.8); Bilirubin, Total 0.5 mg/dL (0.1-1.0); Bun/Creatinine Ratio 29.2 (12.0-20.0); Calcium, Blood 8.8 mg/dL (8.5-10.1); Creatinine, Blood 1.78 mg/dL (0.60-1.20); Globulin, Blood 3.3 g/dL (2.2-4.0); Total Protein, Blood 6.2 g/dL (6.4-8.2)
[2023-01-27 10:08] LABS: Platelet Count 11 K/mm3 (150-400)
[2023-01-27 13:03] LABS: BASOPHILS ABSOLUTE MAN 0.02 K/mm3 (0.00-0.23); BASOPHILS PERCENT MAN 2 % (0-2); EOSINOPHILS ABSOLUTE MAN 0.02 K/mm3 (0.00-0.68); EOSINOPHILS PERCENT MAN 2 % (0-6); LYMPHOCYTES % ATYPICAL MANUAL 6 % (0-0); LYMPHOCYTES ABSOLUTE MAN 0.56 K/mm3 (0.84-5.20); LYMPHOCYTES PERCENT MAN 44 % (21-46); MONOCYTES ABSOLUTE MAN 0.08 K/mm3 (0.16-1.47); MONOCYTES PERCENT MAN 8 % (4-13); NEUTROPHILS ABSOLUTE MAN 0.42 K/mm3 (1.96-9.15); SEG NEUTROPHILS PERCENT MAN 38 % (41-73); TOTAL CELLS COUNTED 50
== END 2023-01-27 23:19 | disposition home or self-care (01) ==
LOC: ATC 02:55
PROVIDERS: Internal Medicine Hematology & Oncology
DX: D69.6 Thrombocytopenia, unspecified (principal); Z87.891 Personal history of nicotine dependence; E11.22 Type 2 diabetes mellitus with diabetic chronic kidney disease; N18.9 Chronic kidney disease, unspecified; I12.0 Hypertensive chronic kidney disease with stage 5 chronic kidney disease or end stage renal disease; D50.9 Iron deficiency anemia, unspecified; D63.8 Anemia in other chronic diseases classified elsewhere
CPT/HCPCS: 36592; 80053; 85025

== ENCOUNTER 2023-02-06 01:09 | Day surgery (SDC) | payer OTHER ==
[2023-02-03 09:52] VITALS: BP 135/80
[2023-02-03 10:22] LABS: BASOPHILS ABSOLUTE AUTO 0.01 K/mm3 (0.00-0.23); BASOPHILS PERCENT AUTO 1 % (0-2); EOSINOPHILS ABSOLUTE AUTO 0.02 K/mm3 (0.00-0.68); EOSINOPHILS PERCENT AUTO 1 % (0-6); Hematocrit 19.8 % (37.0-53.0); Hemoglobin 6.4 g/dL (13.5-17.5); IMMATURE GRAN ABSOLUTE AUTO 0.01 K/mm3 (0.00-0.10); IMMATURE GRAN PERCENT AUTO 1 % (0-1); LYMPHOCYTES ABSOLUTE AUTO 0.44 K/mm3 (0.84-5.20); LYMPHOCYTES PERCENT AUTO 29 % (21-46); MONOCYTES ABSOLUTE AUTO 0.28 K/mm3 (0.16-1.47); MONOCYTES PERCENT AUTO 18 % (4-13); Mean Corpuscular HGB 30.3 pg (26.0-34.0); Mean Corpuscular HGB Conc 32.3 g/dL (31.5-36.5); Mean Corpuscular Volume 94 fL (80-100); Mean Platelet Volume 10.2 fL (9.1-12.4); NEUTROPHILS ABSOLUTE AUTO 0.76 K/mm3 (1.96-9.15); NEUTROPHILS PERCENT AUTO 50 % (41-73); RDW Coefficient Variation 18.3 % (11.7-14.2); RDW Standard Deviation 49.6 fL (35.1-46.3); Red Blood Cell Count 2.11 M/mm3 (4.30-5.90); White Blood Cell Count 1.52 K/mm3 (4.00-11.30)
[2023-02-03 10:38] LABS: Platelet Count 7 K/mm3 (150-400)
[2023-02-03 10:38] LABS: International Normalized Ratio 1.04; Prothrombin Time Results 10.9 Sec (9.7-11.5)
[2023-02-03 10:52] LABS: Albumin, Blood 2.9 g/dL (3.4-5.0); Albumin/Globulin Ratio 0.9 (0.8-1.8); Bilirubin, Direct 0.2 mg/dL (0.0-0.3); Bilirubin, Indirect 0.2 mg/dL (0.1-0.7); Bilirubin, Total 0.4 mg/dL (0.1-1.0); Bun/Creatinine Ratio 24.3 (12.0-20.0); Calcium, Blood 8.7 mg/dL (8.5-10.1); Creatinine, Blood 1.89 mg/dL (0.60-1.20); Globulin, Blood 3.2 g/dL (2.2-4.0); Potassium, Blood 3.7 mmol/L (3.5-5.5); Total Protein, Blood 6.1 g/dL (6.4-8.2)
[2023-02-04 13:12] LABS: HBSAG SCREEN Negative (Negative)
[2023-02-06] VITALS (9 sets, daily range): BP systolic 123–162; BP diastolic 53–74
[2023-02-06] MEDS ORDERED: AMOCLA875 PO (13:43)
[2023-02-06 14:08] LABS: HEPATITIS C QUANTITATION HCV Not Detected IU/mL (.)
== END 2023-02-06 17:57 | disposition home or self-care (01) ==
LOC: ATC 01:09
PROVIDERS: Physician Assistant Medical
DX: D64.9 Anemia, unspecified (principal); D69.6 Thrombocytopenia, unspecified; E78.5 Hyperlipidemia, unspecified; I48.0 Paroxysmal atrial fibrillation; I12.9 Hypertensive chronic kidney disease with stage 1 through stage 4 chronic kidney disease, or unspecified chronic kidney disease; E11.22 Type 2 diabetes mellitus with diabetic chronic kidney disease; N18.9 Chronic kidney disease, unspecified; G47.33 Obstructive sleep apnea (adult) (pediatric); Z79.01 Long term (current) use of anticoagulants; Z79.4 Long term (current) use of insulin; Z79.899 Other long term (current) drug therapy
CPT/HCPCS: 36430; 36592; 80053; 82248; 85025; 85610; 86850; 86900; 86901; 86923; 87340; 87522; J7050; P9016; P9035

== ENCOUNTER 2023-02-10 01:54 | Day surgery (SDC) | payer OTHER ==
[2023-02-10 10:01] VITALS: BP 158/74
[2023-02-10 10:27] LABS: Hematocrit 22.3 % (37.0-53.0); Hemoglobin 7.2 g/dL (13.5-17.5); Mean Corpuscular HGB Conc 32.3 g/dL (31.5-36.5); Mean Corpuscular Volume 93 fL (80-100); RDW Coefficient Variation 18.7 % (11.7-14.2); RDW Standard Deviation 51.6 fL (35.1-46.3); White Blood Cell Count 1.35 K/mm3 (4.00-11.30)
[2023-02-10 10:37] LABS: Platelet Count 12 K/mm3 (150-400)
[2023-02-10 10:47] LABS: Bilirubin, Total 0.4 mg/dL (0.1-1.0); Bun/Creatinine Ratio 30.5 (12.0-20.0); Calcium, Blood 8.4 mg/dL (8.5-10.1); Creatinine, Blood 1.97 mg/dL (0.60-1.20); Globulin, Blood 2.9 g/dL (2.2-4.0); Potassium, Blood 3.7 mmol/L (3.5-5.5); Total Protein, Blood 5.9 g/dL (6.4-8.2)
[2023-02-10 10:59] LABS: BAND PERCENT MAN 3 % (0-8); BASOPHILS PERCENT MAN 0 % (0-2); EOSINOPHILS ABSOLUTE MAN 0.01 K/mm3 (0.00-0.68); EOSINOPHILS PERCENT MAN 1 % (0-6); LYMPHOCYTES % ATYPICAL MANUAL 2 % (0-0); LYMPHOCYTES ABSOLUTE MAN 0.48 K/mm3 (0.84-5.20); LYMPHOCYTES PERCENT MAN 34 % (21-46); MONOCYTES ABSOLUTE MAN 0.06 K/mm3 (0.16-1.47); MONOCYTES PERCENT MAN 5 % (4-13); NEUTROPHILS ABSOLUTE MAN 0.78 K/mm3 (1.96-9.15); SEG NEUTROPHILS PERCENT MAN 55 % (41-73); TOTAL CELLS COUNTED 100
== END 2023-02-10 10:14 | disposition home or self-care (01) ==
LOC: ATC 01:54
PROVIDERS: Internal Medicine Hematology & Oncology
DX: D69.6 Thrombocytopenia, unspecified (principal); D64.9 Anemia, unspecified; E11.22 Type 2 diabetes mellitus with diabetic chronic kidney disease; I12.9 Hypertensive chronic kidney disease with stage 1 through stage 4 chronic kidney disease, or unspecified chronic kidney disease
CPT/HCPCS: 36592; 80053; 85025

== ENCOUNTER 2023-02-18 04:53 | Day surgery (SDC) | payer OTHER ==
[2023-02-17 10:15] VITALS: BP 153/88
[2023-02-17 10:34] LABS: BASOPHILS ABSOLUTE AUTO 0.02 K/mm3 (0.00-0.23); BASOPHILS PERCENT AUTO 2 % (0-2); EOSINOPHILS ABSOLUTE AUTO 0.02 K/mm3 (0.00-0.68); EOSINOPHILS PERCENT AUTO 2 % (0-6); Hematocrit 19.7 % (37.0-53.0); Hemoglobin 6.6 g/dL (13.5-17.5); IMMATURE GRAN ABSOLUTE AUTO 0.04 K/mm3 (0.00-0.10); IMMATURE GRAN PERCENT AUTO 3 % (0-1); LYMPHOCYTES ABSOLUTE AUTO 0.42 K/mm3 (0.84-5.20); LYMPHOCYTES PERCENT AUTO 31 % (21-46); MONOCYTES ABSOLUTE AUTO 0.21 K/mm3 (0.16-1.47); MONOCYTES PERCENT AUTO 15 % (4-13); Mean Corpuscular HGB 31.6 pg (26.0-34.0); Mean Corpuscular HGB Conc 33.5 g/dL (31.5-36.5); Mean Corpuscular Volume 94 fL (80-100); NEUTROPHILS ABSOLUTE AUTO 0.66 K/mm3 (1.96-9.15); NEUTROPHILS PERCENT AUTO 48 % (41-73); RDW Standard Deviation 56.8 fL (35.1-46.3); Red Blood Cell Count 2.09 M/mm3 (4.30-5.90); White Blood Cell Count 1.37 K/mm3 (4.00-11.30)
[2023-02-17 10:42] LABS: Platelet Count 8 K/mm3 (150-400)
[2023-02-17 11:02] LABS: Albumin, Blood 3.1 g/dL (3.4-5.0); Bilirubin, Total 0.5 mg/dL (0.1-1.0); Bun/Creatinine Ratio 31.7 (12.0-20.0); Calcium, Blood 8.6 mg/dL (8.5-10.1); Creatinine, Blood 1.99 mg/dL (0.60-1.20); Potassium, Blood 3.7 mmol/L (3.5-5.5); Total Protein, Blood 6.1 g/dL (6.4-8.2)
[2023-02-18] VITALS (10 sets, daily range): BP systolic 100–138; BP diastolic 46–66
== END 2023-02-18 12:47 | disposition home or self-care (01) ==
LOC: ATC 04:53
PROVIDERS: Internal Medicine Hematology & Oncology
DX: D69.6 Thrombocytopenia, unspecified (principal); Z87.891 Personal history of nicotine dependence; E11.22 Type 2 diabetes mellitus with diabetic chronic kidney disease; N18.9 Chronic kidney disease, unspecified; D50.9 Iron deficiency anemia, unspecified; D63.1 Anemia in chronic kidney disease
CPT/HCPCS: 36430; 36592; 80053; 85025; 86850; 86900; 86901; 86923; J7050; P9016; P9035

== ENCOUNTER 2023-03-05 03:56 | Day surgery (SDC) | payer OTHER ==
[2023-03-03 10:22] VITALS: BP 126/94
[2023-03-03 11:01] LABS: BASOPHILS PERCENT AUTO 0 % (0-2); EOSINOPHILS ABSOLUTE AUTO 0.02 K/mm3 (0.00-0.68); EOSINOPHILS PERCENT AUTO 1 % (0-6); Hematocrit 21.6 % (37.0-53.0); IMMATURE GRAN PERCENT AUTO 0 % (0-1); LYMPHOCYTES ABSOLUTE AUTO 0.55 K/mm3 (0.84-5.20); LYMPHOCYTES PERCENT AUTO 33 % (21-46); MONOCYTES ABSOLUTE AUTO 0.28 K/mm3 (0.16-1.47); MONOCYTES PERCENT AUTO 17 % (4-13); Mean Corpuscular HGB 31.1 pg (26.0-34.0); Mean Corpuscular HGB Conc 32.4 g/dL (31.5-36.5); Mean Corpuscular Volume 96 fL (80-100); NEUTROPHILS PERCENT AUTO 49 % (41-73); RDW Coefficient Variation 23.2 % (11.7-14.2); RDW Standard Deviation 76.6 fL (35.1-46.3); Red Blood Cell Count 2.25 M/mm3 (4.30-5.90); White Blood Cell Count 1.65 K/mm3 (4.00-11.30)
[2023-03-03 11:18] LABS: Platelet Count 10 K/mm3 (150-400)
[2023-03-03 12:18] LABS: Albumin, Blood 3.1 g/dL (3.4-5.0); Bilirubin, Total 0.3 mg/dL (0.1-1.0); Bun/Creatinine Ratio 29.1 (12.0-20.0); Calcium, Blood 8.5 mg/dL (8.5-10.1); Creatinine, Blood 2.03 mg/dL (0.60-1.20); Globulin, Blood 3.2 g/dL (2.2-4.0); Potassium, Blood 3.9 mmol/L (3.5-5.5); Total Protein, Blood 6.3 g/dL (6.4-8.2)
[2023-03-05] VITALS (7 sets, daily range): BP systolic 119–159; BP diastolic 49–68
== END 2023-03-05 12:50 | disposition home or self-care (01) ==
LOC: ATC 03:56
PROVIDERS: Internal Medicine Hematology & Oncology
DX: D69.6 Thrombocytopenia, unspecified (principal); E11.22 Type 2 diabetes mellitus with diabetic chronic kidney disease; N18.9 Chronic kidney disease, unspecified; I12.9 Hypertensive chronic kidney disease with stage 1 through stage 4 chronic kidney disease, or unspecified chronic kidney disease; D50.9 Iron deficiency anemia, unspecified; D63.1 Anemia in chronic kidney disease
CPT/HCPCS: 36430; 36592; 80053; 85025; 86850; 86900; 86901; 86923; J7050; P9016; P9035

== ENCOUNTER 2023-03-10 08:28 | Day surgery (SDC) | payer OTHER ==
[2023-03-10 09:52] VITALS: BP 141/73
[2023-03-10 10:25] LABS: BASOPHILS ABSOLUTE AUTO 0.01 K/mm3 (0.00-0.23); BASOPHILS PERCENT AUTO 1 % (0-2); EOSINOPHILS ABSOLUTE AUTO 0.02 K/mm3 (0.00-0.68); EOSINOPHILS PERCENT AUTO 2 % (0-6); Hematocrit 21.9 % (37.0-53.0); Hemoglobin 7.1 g/dL (13.5-17.5); IMMATURE GRAN ABSOLUTE AUTO 0.01 K/mm3 (0.00-0.10); IMMATURE GRAN PERCENT AUTO 1 % (0-1); LYMPHOCYTES ABSOLUTE AUTO 0.35 K/mm3 (0.84-5.20); LYMPHOCYTES PERCENT AUTO 29 % (21-46); MONOCYTES ABSOLUTE AUTO 0.24 K/mm3 (0.16-1.47); MONOCYTES PERCENT AUTO 20 % (4-13); Mean Corpuscular HGB 31.3 pg (26.0-34.0); Mean Corpuscular HGB Conc 32.4 g/dL (31.5-36.5); Mean Corpuscular Volume 97 fL (80-100); NEUTROPHILS ABSOLUTE AUTO 0.57 K/mm3 (1.96-9.15); NEUTROPHILS PERCENT AUTO 48 % (41-73); RDW Coefficient Variation 22.2 % (11.7-14.2); RDW Standard Deviation 75.1 fL (35.1-46.3); Red Blood Cell Count 2.27 M/mm3 (4.30-5.90)
[2023-03-10 10:35] LABS: Platelet Count 10 K/mm3 (150-400)
[2023-03-10 10:42] LABS: Albumin, Blood 3.3 g/dL (3.4-5.0); Albumin/Globulin Ratio 1.2 (0.8-1.8); Bilirubin, Total 0.5 mg/dL (0.1-1.0); Bun/Creatinine Ratio 28.6 (12.0-20.0); Calcium, Blood 8.7 mg/dL (8.5-10.1); Creatinine, Blood 1.99 mg/dL (0.60-1.20); Globulin, Blood 2.8 g/dL (2.2-4.0); Potassium, Blood 3.9 mmol/L (3.5-5.5); Total Protein, Blood 6.1 g/dL (6.4-8.2)
[2023-03-10 10:51] LABS: BASOPHILS PERCENT MAN 0 % (0-2); EOSINOPHILS ABSOLUTE MAN 0.02 K/mm3 (0.00-0.68); EOSINOPHILS PERCENT MAN 2 % (0-6); LYMPHOCYTES ABSOLUTE MAN 0.45 K/mm3 (0.84-5.20); LYMPHOCYTES PERCENT MAN 38 % (21-46); MONOCYTES ABSOLUTE MAN 0.09 K/mm3 (0.16-1.47); MONOCYTES PERCENT MAN 8 % (4-13); NEUTROPHILS ABSOLUTE MAN 0.62 K/mm3 (1.96-9.15); SEG NEUTROPHILS PERCENT MAN 52 % (41-73); TOTAL CELLS COUNTED 50
== END 2023-03-10 22:46 | disposition home or self-care (01) ==
LOC: ATC 08:28
PROVIDERS: Internal Medicine Hematology & Oncology
DX: D69.6 Thrombocytopenia, unspecified (principal); D64.9 Anemia, unspecified; E11.22 Type 2 diabetes mellitus with diabetic chronic kidney disease; I12.9 Hypertensive chronic kidney disease with stage 1 through stage 4 chronic kidney disease, or unspecified chronic kidney disease; N18.2 Chronic kidney disease, stage 2 (mild); R16.2 Hepatomegaly with splenomegaly, not elsewhere classified; Z87.891 Personal history of nicotine dependence
CPT/HCPCS: 36592; 80053; 85025

== ENCOUNTER 2023-03-17 02:05 | Day surgery (SDC) | payer OTHER ==
[2023-03-17 09:29] VITALS: BP 156/74
[2023-03-17 09:48] LABS: Hematocrit 22.5 % (37.0-53.0); Hemoglobin 7.3 g/dL (13.5-17.5); Mean Corpuscular HGB 31.9 pg (26.0-34.0); Mean Corpuscular HGB Conc 32.4 g/dL (31.5-36.5); Mean Corpuscular Volume 98 fL (80-100); RDW Coefficient Variation 23.9 % (11.7-14.2); RDW Standard Deviation 80.6 fL (35.1-46.3); Red Blood Cell Count 2.29 M/mm3 (4.30-5.90); White Blood Cell Count 1.43 K/mm3 (4.00-11.30)
[2023-03-17 09:59] LABS: Platelet Count 10 K/mm3 (150-400)
[2023-03-17 10:18] LABS: Albumin, Blood 3.1 g/dL (3.4-5.0); Bilirubin, Total 0.4 mg/dL (0.1-1.0); Bun/Creatinine Ratio 31.4 (12.0-20.0); Calcium, Blood 8.5 mg/dL (8.5-10.1); Creatinine, Blood 2.04 mg/dL (0.60-1.20); Globulin, Blood 3.2 g/dL (2.2-4.0); Potassium, Blood 4.1 mmol/L (3.5-5.5); Total Protein, Blood 6.3 g/dL (6.4-8.2)
[2023-03-17 11:00] LABS: BAND PERCENT MAN 4 % (0-8); BASOPHILS PERCENT MAN 0 % (0-2); EOSINOPHILS PERCENT MAN 0 % (0-6); LYMPHOCYTES ABSOLUTE MAN 0.51 K/mm3 (0.84-5.20); LYMPHOCYTES PERCENT MAN 36 % (21-46); MONOCYTES ABSOLUTE MAN 0.14 K/mm3 (0.16-1.47); MONOCYTES PERCENT MAN 10 % (4-13); NEUTROPHILS ABSOLUTE MAN 0.77 K/mm3 (1.96-9.15); SEG NEUTROPHILS PERCENT MAN 50 % (41-73); TOTAL CELLS COUNTED 50
== END 2023-03-17 09:37 | disposition home or self-care (01) ==
LOC: ATC 02:05
PROVIDERS: Internal Medicine Hematology & Oncology
DX: D64.9 Anemia, unspecified (principal); D69.6 Thrombocytopenia, unspecified
CPT/HCPCS: 36592; 80053; 85025

== ENCOUNTER 2023-04-09 07:37 | Day surgery (SDC) | payer OTHER ==
[2023-04-07 10:13] VITALS: BP 137/70
[2023-04-07 10:52] LABS: Hemoglobin 6.4 g/dL (13.5-17.5); White Blood Cell Count 1.46 K/mm3 (4.00-11.30)
[2023-04-07 10:55] LABS: Hematocrit 20.4 % (37.0-53.0); Mean Corpuscular HGB 32.5 pg (26.0-34.0); Mean Corpuscular HGB Conc 31.4 g/dL (31.5-36.5); Mean Corpuscular Volume 104 fL (80-100); Red Blood Cell Count 1.97 M/mm3 (4.30-5.90)
[2023-04-07 10:57] LABS: Platelet Count 9 K/mm3 (150-400)
[2023-04-07 11:09] LABS: Albumin, Blood 3.1 g/dL (3.4-5.0); BAND PERCENT MAN 2 % (0-8); BASOPHILS PERCENT MAN 0 % (0-2); Bilirubin, Total 0.4 mg/dL (0.1-1.0); Bun/Creatinine Ratio 30.1 (12.0-20.0); Calcium, Blood 8.4 mg/dL (8.5-10.1); Creatinine, Blood 2.16 mg/dL (0.60-1.20); EOSINOPHILS ABSOLUTE MAN 0.02 K/mm3 (0.00-0.68); EOSINOPHILS PERCENT MAN 2 % (0-6); Globulin, Blood 3.1 g/dL (2.2-4.0); LYMPHOCYTES ABSOLUTE MAN 0.46 K/mm3 (0.84-5.20); LYMPHOCYTES PERCENT MAN 32 % (21-46); MONOCYTES ABSOLUTE MAN 0.11 K/mm3 (0.16-1.47); MONOCYTES PERCENT MAN 8 % (4-13); NEUTROPHILS ABSOLUTE MAN 0.84 K/mm3 (1.96-9.15); Potassium, Blood 3.6 mmol/L (3.5-5.5); SEG NEUTROPHILS PERCENT MAN 56 % (41-73); TOTAL CELLS COUNTED 50; Total Protein, Blood 6.2 g/dL (6.4-8.2)
[2023-04-09] VITALS (8 sets, daily range): BP systolic 122–156; BP diastolic 47–82
== END 2023-04-09 12:10 | disposition home or self-care (01) ==
LOC: ATC 07:37
PROVIDERS: Internal Medicine; Internal Medicine Hematology & Oncology
DX: D69.6 Thrombocytopenia, unspecified (principal); D50.9 Iron deficiency anemia, unspecified; E11.21 Type 2 diabetes mellitus with diabetic nephropathy; I48.0 Paroxysmal atrial fibrillation; G47.33 Obstructive sleep apnea (adult) (pediatric); I12.9 Hypertensive chronic kidney disease with stage 1 through stage 4 chronic kidney disease, or unspecified chronic kidney disease; E11.22 Type 2 diabetes mellitus with diabetic chronic kidney disease; N18.9 Chronic kidney disease, unspecified; Z87.891 Personal history of nicotine dependence
CPT/HCPCS: 36430; 36592; 80053; 83036; 85025; 86850; 86900; 86901; 86923; J7050; P9016; P9053

== ENCOUNTER 2023-04-14 02:30 | Day surgery (SDC) | payer OTHER ==
[2023-04-14 09:45] VITALS: BP 148/77
[2023-04-14 10:07] LABS: Hematocrit 22.4 % (37.0-53.0); Hemoglobin 7.1 g/dL (13.5-17.5); Mean Corpuscular HGB 32.6 pg (26.0-34.0); Mean Corpuscular HGB Conc 31.7 g/dL (31.5-36.5); Mean Corpuscular Volume 103 fL (80-100); RDW Coefficient Variation 26.2 % (11.7-14.2); Red Blood Cell Count 2.18 M/mm3 (4.30-5.90); White Blood Cell Count 1.67 K/mm3 (4.00-11.30)
[2023-04-14 10:23] LABS: Platelet Count 11 K/mm3 (150-400)
[2023-04-14 10:26] LABS: Albumin, Blood 2.9 g/dL (3.4-5.0); Albumin/Globulin Ratio 0.9 (0.8-1.8); Bilirubin, Total 0.4 mg/dL (0.1-1.0); Bun/Creatinine Ratio 25.4 (12.0-20.0); Calcium, Blood 8.4 mg/dL (8.5-10.1); Creatinine, Blood 2.05 mg/dL (0.60-1.20); Globulin, Blood 3.2 g/dL (2.2-4.0); Potassium, Blood 3.4 mmol/L (3.5-5.5); Total Protein, Blood 6.1 g/dL (6.4-8.2)
[2023-04-14 10:39] LABS: BAND PERCENT MAN 2 % (0-8); BASOPHILS PERCENT MAN 0 % (0-2); EOSINOPHILS ABSOLUTE MAN 0.03 K/mm3 (0.00-0.68); EOSINOPHILS PERCENT MAN 2 % (0-6); LYMPHOCYTES ABSOLUTE MAN 0.53 K/mm3 (0.84-5.20); LYMPHOCYTES PERCENT MAN 32 % (21-46); MONOCYTES ABSOLUTE MAN 0.13 K/mm3 (0.16-1.47); MONOCYTES PERCENT MAN 8 % (4-13); NEUTROPHILS ABSOLUTE MAN 0.96 K/mm3 (1.96-9.15); SEG NEUTROPHILS PERCENT MAN 56 % (41-73); TOTAL CELLS COUNTED 50
== END 2023-04-14 09:53 | disposition home or self-care (01) ==
LOC: ATC 02:30
PROVIDERS: Internal Medicine Hematology & Oncology
DX: D64.9 Anemia, unspecified (principal); D69.6 Thrombocytopenia, unspecified; E11.22 Type 2 diabetes mellitus with diabetic chronic kidney disease; I12.9 Hypertensive chronic kidney disease with stage 1 through stage 4 chronic kidney disease, or unspecified chronic kidney disease; N18.9 Chronic kidney disease, unspecified; Z87.891 Personal history of nicotine dependence
CPT/HCPCS: 36592; 80053; 85025

== ENCOUNTER 2023-04-24 05:05 | Day surgery (SDC) | payer OTHER ==
[2023-04-21 10:22] LABS: Hematocrit 21.1 % (37.0-53.0); Hemoglobin 6.7 g/dL (13.5-17.5); Mean Corpuscular HGB 33.3 pg (26.0-34.0); Mean Corpuscular HGB Conc 31.8 g/dL (31.5-36.5); Mean Corpuscular Volume 105 fL (80-100); NRBC ABSOLUTE 0.03 K/mm3 (0.00-0.02); NRBC Auto 1.9 /100 WBC (0.0-0.2); RDW Coefficient Variation 26.3 % (11.7-14.2); RDW Standard Deviation 94.3 fL (35.1-46.3); Red Blood Cell Count 2.01 M/mm3 (4.30-5.90); White Blood Cell Count 1.55 K/mm3 (4.00-11.30)
[2023-04-21 10:26] LABS: Platelet Count 9 K/mm3 (150-400)
[2023-04-21 10:30] VITALS: BP 145/75
[2023-04-21 10:35] LABS: Albumin, Blood 2.8 g/dL (3.4-5.0); Albumin/Globulin Ratio 0.7 (0.8-1.8); Bilirubin, Total 0.4 mg/dL (0.1-1.0); Bun/Creatinine Ratio 31.2 (12.0-20.0); Calcium, Blood 8.5 mg/dL (8.5-10.1); Creatinine, Blood 2.15 mg/dL (0.60-1.20); Globulin, Blood 4.3 g/dL (2.2-4.0); Potassium, Blood 3.8 mmol/L (3.5-5.5); Total Protein, Blood 7.1 g/dL (6.4-8.2)
[2023-04-21 10:41] LABS: BAND PERCENT MAN 6 % (0-8); BASOPHILS PERCENT MAN 0 % (0-2); EOSINOPHILS PERCENT MAN 0 % (0-6); LYMPHOCYTES ABSOLUTE MAN 0.21 K/mm3 (0.84-5.20); LYMPHOCYTES PERCENT MAN 14 % (21-46); MONOCYTES ABSOLUTE MAN 0.12 K/mm3 (0.16-1.47); MONOCYTES PERCENT MAN 8 % (4-13); SEG NEUTROPHILS PERCENT MAN 72 % (41-73); TOTAL CELLS COUNTED 50
[2023-04-24] VITALS (8 sets, daily range): BP systolic 131–166; BP diastolic 59–86
== END 2023-04-24 12:06 | disposition home or self-care (01) ==
LOC: ATC 05:05
PROVIDERS: Internal Medicine Hematology & Oncology
DX: D69.6 Thrombocytopenia, unspecified (principal); D64.9 Anemia, unspecified; E11.22 Type 2 diabetes mellitus with diabetic chronic kidney disease; I12.9 Hypertensive chronic kidney disease with stage 1 through stage 4 chronic kidney disease, or unspecified chronic kidney disease; N18.9 Chronic kidney disease, unspecified
CPT/HCPCS: 36430; 36592; 80053; 85025; 86850; 86900; 86901; 86923; J7050; P9016; P9035

== ENCOUNTER 2023-04-30 03:03 | Day surgery (SDC) | payer OTHER ==
[2023-04-28 10:15] LABS: Hematocrit 23.2 % (37.0-53.0); Hemoglobin 7.4 g/dL (13.5-17.5); Mean Corpuscular HGB 32.5 pg (26.0-34.0); Mean Corpuscular HGB Conc 31.9 g/dL (31.5-36.5); Mean Corpuscular Volume 102 fL (80-100); RDW Coefficient Variation 25.5 % (11.7-14.2); RDW Standard Deviation 88.7 fL (35.1-46.3); Red Blood Cell Count 2.28 M/mm3 (4.30-5.90); White Blood Cell Count 1.87 K/mm3 (4.00-11.30)
[2023-04-28 10:23] LABS: Platelet Count 9 K/mm3 (150-400)
[2023-04-28 10:34] LABS: BASOPHILS PERCENT MAN 0 % (0-2); EOSINOPHILS PERCENT MAN 0 % (0-6); LYMPHOCYTES ABSOLUTE MAN 0.18 K/mm3 (0.84-5.20); LYMPHOCYTES PERCENT MAN 10 % (21-46); MONOCYTES ABSOLUTE MAN 0.29 K/mm3 (0.16-1.47); MONOCYTES PERCENT MAN 16 % (4-13); NEUTROPHILS ABSOLUTE MAN 1.38 K/mm3 (1.96-9.15); SEG NEUTROPHILS PERCENT MAN 74 % (41-73); TOTAL CELLS COUNTED 50
[2023-04-28 11:06] LABS: Albumin/Globulin Ratio 0.8 (0.8-1.8); Bilirubin, Total 0.5 mg/dL (0.1-1.0); Bun/Creatinine Ratio 27.9 (12.0-20.0); Calcium, Blood 9.1 mg/dL (8.5-10.1); Creatinine, Blood 2.15 mg/dL (0.60-1.20); Globulin, Blood 3.7 g/dL (2.2-4.0); Potassium, Blood 3.7 mmol/L (3.5-5.5); Total Protein, Blood 6.7 g/dL (6.4-8.2)
[2023-04-30 13:55] VITALS: BP 171/86
[2023-04-30 14:13] VITALS: BP 133/54
[2023-04-30 15:10] VITALS: BP 146/77
== END 2023-04-30 15:11 | disposition home or self-care (01) ==
LOC: ATC 03:03
PROVIDERS: Internal Medicine Hematology & Oncology
DX: D69.6 Thrombocytopenia, unspecified (principal); D64.9 Anemia, unspecified; E78.5 Hyperlipidemia, unspecified; I48.0 Paroxysmal atrial fibrillation; M10.9 Gout, unspecified; E11.22 Type 2 diabetes mellitus with diabetic chronic kidney disease; I12.9 Hypertensive chronic kidney disease with stage 1 through stage 4 chronic kidney disease, or unspecified chronic kidney disease; N18.9 Chronic kidney disease, unspecified; Z79.4 Long term (current) use of insulin
CPT/HCPCS: 36430; 80053; 85025; 86900; 86901; J7050; P9035

== ENCOUNTER 2023-05-05 01:30 | Day surgery (SDC) | payer OTHER ==
[2023-05-05 09:58] VITALS: BP 143/57
[2023-05-05 10:15] LABS: Hematocrit 23.6 % (37.0-53.0); Hemoglobin 7.3 g/dL (13.5-17.5); Mean Corpuscular HGB Conc 30.9 g/dL (31.5-36.5); Mean Corpuscular Volume 107 fL (80-100); RDW Coefficient Variation 25.7 % (11.7-14.2); Red Blood Cell Count 2.21 M/mm3 (4.30-5.90)
[2023-05-05 10:22] LABS: Platelet Count 11 K/mm3 (150-400)
[2023-05-05 10:32] LABS: Albumin, Blood 2.9 g/dL (3.4-5.0); Albumin/Globulin Ratio 0.8 (0.8-1.8); Bilirubin, Total 0.5 mg/dL (0.1-1.0); Bun/Creatinine Ratio 22.7 (12.0-20.0); Calcium, Blood 8.4 mg/dL (8.5-10.1); Creatinine, Blood 2.16 mg/dL (0.60-1.20); Globulin, Blood 3.7 g/dL (2.2-4.0); Potassium, Blood 3.6 mmol/L (3.5-5.5); Total Protein, Blood 6.6 g/dL (6.4-8.2)
[2023-05-05 10:38] LABS: BAND PERCENT MAN 2 % (0-8); BASOPHILS PERCENT MAN 0 % (0-2); EOSINOPHILS ABSOLUTE MAN 0.02 K/mm3 (0.00-0.68); EOSINOPHILS PERCENT MAN 1 % (0-6); LYMPHOCYTES ABSOLUTE MAN 0.33 K/mm3 (0.84-5.20); LYMPHOCYTES PERCENT MAN 16 % (21-46); MONOCYTES ABSOLUTE MAN 0.27 K/mm3 (0.16-1.47); MONOCYTES PERCENT MAN 13 % (4-13); NEUTROPHILS ABSOLUTE MAN 1.47 K/mm3 (1.96-9.15); SEG NEUTROPHILS PERCENT MAN 68 % (41-73); TOTAL CELLS COUNTED 100
== END 2023-05-05 10:00 | disposition home or self-care (01) ==
LOC: ATC 01:30
PROVIDERS: Internal Medicine Hematology & Oncology
DX: D64.9 Anemia, unspecified (principal); D69.6 Thrombocytopenia, unspecified; E78.5 Hyperlipidemia, unspecified; I48.0 Paroxysmal atrial fibrillation; E11.22 Type 2 diabetes mellitus with diabetic chronic kidney disease; I12.9 Hypertensive chronic kidney disease with stage 1 through stage 4 chronic kidney disease, or unspecified chronic kidney disease; N18.9 Chronic kidney disease, unspecified; Z87.891 Personal history of nicotine dependence
CPT/HCPCS: 36592; 80053; 85025

== ENCOUNTER 2023-05-15 07:35 | Day surgery (SDC) | payer OTHER ==
[2023-05-12 09:32] VITALS: BP 152/72
[2023-05-12 10:01] LABS: Hematocrit 22.5 % (37.0-53.0); Hemoglobin 6.9 g/dL (13.5-17.5); Mean Corpuscular HGB 33.5 pg (26.0-34.0); Mean Corpuscular HGB Conc 30.7 g/dL (31.5-36.5); Mean Corpuscular Volume 109 fL (80-100); RDW Coefficient Variation 25.5 % (11.7-14.2); RDW Standard Deviation 97.1 fL (35.1-46.3); Red Blood Cell Count 2.06 M/mm3 (4.30-5.90)
[2023-05-12 10:04] LABS: Platelet Count 10 K/mm3 (150-400)
[2023-05-12 10:19] LABS: BASOPHILS PERCENT MAN 0 % (0-2); EOSINOPHILS PERCENT MAN 0 % (0-6); LYMPHOCYTES ABSOLUTE MAN 0.39 K/mm3 (0.84-5.20); LYMPHOCYTES PERCENT MAN 22 % (21-46); MONOCYTES ABSOLUTE MAN 0.21 K/mm3 (0.16-1.47); MONOCYTES PERCENT MAN 12 % (4-13); NEUTROPHILS ABSOLUTE MAN 1.18 K/mm3 (1.96-9.15); SEG NEUTROPHILS PERCENT MAN 66 % (41-73); TOTAL CELLS COUNTED 50
[2023-05-12 10:25] LABS: Albumin, Blood 2.9 g/dL (3.4-5.0); Albumin/Globulin Ratio 0.8 (0.8-1.8); Bilirubin, Total 0.4 mg/dL (0.1-1.0); Bun/Creatinine Ratio 29.5 (12.0-20.0); Calcium, Blood 8.4 mg/dL (8.5-10.1); Creatinine, Blood 2.24 mg/dL (0.60-1.20); Globulin, Blood 3.6 g/dL (2.2-4.0); Potassium, Blood 3.6 mmol/L (3.5-5.5); Total Protein, Blood 6.5 g/dL (6.4-8.2)
[2023-05-15 07:46] VITALS: BP 141/73
[2023-05-15 08:08] VITALS: BP 125/58
[2023-05-15 09:23] VITALS: BP 151/72
[2023-05-15 09:28] VITALS: BP 151/70
[2023-05-15 09:46] VITALS: BP 130/60
[2023-05-15 11:01] VITALS: BP 131/66
== END 2023-05-15 11:01 | disposition home or self-care (01) ==
LOC: ATC 07:35
PROVIDERS: Internal Medicine Hematology & Oncology
DX: D64.9 Anemia, unspecified (principal); D69.6 Thrombocytopenia, unspecified; E78.5 Hyperlipidemia, unspecified; I48.0 Paroxysmal atrial fibrillation; I12.9 Hypertensive chronic kidney disease with stage 1 through stage 4 chronic kidney disease, or unspecified chronic kidney disease; E11.22 Type 2 diabetes mellitus with diabetic chronic kidney disease; N18.9 Chronic kidney disease, unspecified; G47.33 Obstructive sleep apnea (adult) (pediatric); Z87.891 Personal history of nicotine dependence; Z79.01 Long term (current) use of anticoagulants; Z79.4 Long term (current) use of insulin; Z79.899 Other long term (current) drug therapy
CPT/HCPCS: 36430; 36592; 80053; 85025; 86850; 86900; 86901; 86923; J7050; P9016

== ENCOUNTER 2023-05-19 02:17 | Day surgery (SDC) | payer OTHER ==
[2023-05-19 10:03] VITALS: BP 166/69
[2023-05-19 10:09] LABS: Hematocrit 23.6 % (37.0-53.0); Hemoglobin 7.5 g/dL (13.5-17.5); Mean Corpuscular HGB 33.9 pg (26.0-34.0); Mean Corpuscular HGB Conc 31.8 g/dL (31.5-36.5); Mean Corpuscular Volume 107 fL (80-100); NRBC ABSOLUTE 0.02 K/mm3 (0.00-0.02); NRBC Auto 0.9 /100 WBC (0.0-0.2); RDW Coefficient Variation 26.6 % (11.7-14.2); RDW Standard Deviation 99.4 fL (35.1-46.3); Red Blood Cell Count 2.21 M/mm3 (4.30-5.90); White Blood Cell Count 2.26 K/mm3 (4.00-11.30)
[2023-05-19 10:13] LABS: Platelet Count 10 K/mm3 (150-400)
[2023-05-19 10:30] LABS: BAND PERCENT MAN 2 % (0-8); BASOPHILS PERCENT MAN 0 % (0-2); EOSINOPHILS PERCENT MAN 0 % (0-6); LYMPHOCYTES ABSOLUTE MAN 0.47 K/mm3 (0.84-5.20); LYMPHOCYTES PERCENT MAN 21 % (21-46); MONOCYTES ABSOLUTE MAN 0.27 K/mm3 (0.16-1.47); MONOCYTES PERCENT MAN 12 % (4-13); NEUTROPHILS ABSOLUTE MAN 1.51 K/mm3 (1.96-9.15); SEG NEUTROPHILS PERCENT MAN 65 % (41-73); TOTAL CELLS COUNTED 100
[2023-05-19 10:40] LABS: Albumin, Blood 2.8 g/dL (3.4-5.0); Albumin/Globulin Ratio 0.8 (0.8-1.8); Bilirubin, Total 0.4 mg/dL (0.1-1.0); Bun/Creatinine Ratio 28.9 (12.0-20.0); Calcium, Blood 8.3 mg/dL (8.5-10.1); Creatinine, Blood 2.18 mg/dL (0.60-1.20); Globulin, Blood 3.5 g/dL (2.2-4.0); Potassium, Blood 3.6 mmol/L (3.5-5.5); Total Protein, Blood 6.3 g/dL (6.4-8.2)
== END 2023-05-19 10:00 | disposition home or self-care (01) ==
LOC: ATC 02:17
PROVIDERS: Internal Medicine Hematology & Oncology
DX: D64.9 Anemia, unspecified (principal); D69.6 Thrombocytopenia, unspecified; E78.5 Hyperlipidemia, unspecified; I48.0 Paroxysmal atrial fibrillation; E11.22 Type 2 diabetes mellitus with diabetic chronic kidney disease; I12.9 Hypertensive chronic kidney disease with stage 1 through stage 4 chronic kidney disease, or unspecified chronic kidney disease; N18.9 Chronic kidney disease, unspecified; G47.33 Obstructive sleep apnea (adult) (pediatric); M10.9 Gout, unspecified; Z87.891 Personal history of nicotine dependence; Z79.4 Long term (current) use of insulin
CPT/HCPCS: 36592; 80053; 85025

== ENCOUNTER 2023-05-26 02:59 | Day surgery (SDC) | payer OTHER ==
[2023-05-26 09:46] VITALS: BP 164/67
[2023-05-26 09:54] LABS: Mean Corpuscular HGB 34.5 pg (26.0-34.0); Mean Corpuscular HGB Conc 31.8 g/dL (31.5-36.5); Mean Corpuscular Volume 108 fL (80-100); RDW Coefficient Variation 25.7 % (11.7-14.2); RDW Standard Deviation 98.1 fL (35.1-46.3); Red Blood Cell Count 2.03 M/mm3 (4.30-5.90); White Blood Cell Count 2.05 K/mm3 (4.00-11.30)
[2023-05-26 10:00] LABS: Platelet Count 11 K/mm3 (150-400)
[2023-05-26 10:17] LABS: BAND PERCENT MAN 2 % (0-8); BASOPHILS PERCENT MAN 0 % (0-2); EOSINOPHILS ABSOLUTE MAN 0.06 K/mm3 (0.00-0.68); EOSINOPHILS PERCENT MAN 3 % (0-6); LYMPHOCYTES ABSOLUTE MAN 0.34 K/mm3 (0.84-5.20); LYMPHOCYTES PERCENT MAN 17 % (21-46); MONOCYTES ABSOLUTE MAN 0.14 K/mm3 (0.16-1.47); MONOCYTES PERCENT MAN 7 % (4-13); NEUTROPHILS ABSOLUTE MAN 1.49 K/mm3 (1.96-9.15); SEG NEUTROPHILS PERCENT MAN 71 % (41-73); TOTAL CELLS COUNTED 100
[2023-05-26 10:30] LABS: Albumin, Blood 2.8 g/dL (3.4-5.0); Albumin/Globulin Ratio 0.8 (0.8-1.8); Bilirubin, Total 0.4 mg/dL (0.1-1.0); Bun/Creatinine Ratio 30.4 (12.0-20.0); Calcium, Blood 8.1 mg/dL (8.5-10.1); Creatinine, Blood 2.07 mg/dL (0.60-1.20); Globulin, Blood 3.3 g/dL (2.2-4.0); Potassium, Blood 3.5 mmol/L (3.5-5.5); Total Protein, Blood 6.1 g/dL (6.4-8.2)
== END 2023-05-26 09:16 | disposition home or self-care (01) ==
LOC: ATC 02:59
PROVIDERS: Internal Medicine Hematology & Oncology
DX: D64.9 Anemia, unspecified (principal); D69.6 Thrombocytopenia, unspecified; E11.22 Type 2 diabetes mellitus with diabetic chronic kidney disease; I12.9 Hypertensive chronic kidney disease with stage 1 through stage 4 chronic kidney disease, or unspecified chronic kidney disease; N18.9 Chronic kidney disease, unspecified
CPT/HCPCS: 36592; 80053; 85025

== ENCOUNTER 2023-06-05 03:50 | Day surgery (SDC) | payer OTHER ==
[2023-06-02 09:35] VITALS: BP 153/73
[2023-06-02 11:00] LABS: BASOPHILS ABSOLUTE AUTO 0.01 K/mm3 (0.00-0.23); BASOPHILS PERCENT AUTO 0 % (0-2); EOSINOPHILS ABSOLUTE AUTO 0.06 K/mm3 (0.00-0.68); EOSINOPHILS PERCENT AUTO 2 % (0-6); Hemoglobin 6.6 g/dL (13.5-17.5); IMMATURE GRAN PERCENT AUTO 0 % (0-1); LYMPHOCYTES ABSOLUTE AUTO 0.55 K/mm3 (0.84-5.20); LYMPHOCYTES PERCENT AUTO 22 % (21-46); MONOCYTES PERCENT AUTO 20 % (4-13); Mean Platelet Volume 10.8 fL (9.1-12.4); NEUTROPHILS ABSOLUTE AUTO 1.35 K/mm3 (1.96-9.15); NEUTROPHILS PERCENT AUTO 55 % (41-73); NRBC ABSOLUTE 0.02 K/mm3 (0.00-0.02); NRBC Auto 0.8 /100 WBC (0.0-0.2); White Blood Cell Count 2.47 K/mm3 (4.00-11.30)
[2023-06-02 11:19] LABS: Albumin/Globulin Ratio 0.9 (0.8-1.8); Bilirubin, Total 0.4 mg/dL (0.1-1.0); Bun/Creatinine Ratio 30.2 (12.0-20.0); Calcium, Blood 8.3 mg/dL (8.5-10.1); Creatinine, Blood 2.45 mg/dL (0.60-1.20); Globulin, Blood 3.3 g/dL (2.2-4.0); Potassium, Blood 4.3 mmol/L (3.5-5.5); Total Protein, Blood 6.3 g/dL (6.4-8.2)
[2023-06-02 11:36] LABS: Hematocrit 21.3 % (37.0-53.0); Mean Corpuscular HGB 34.6 pg (26.0-34.0); Mean Corpuscular Volume 112 fL (80-100); Red Blood Cell Count 1.91 M/mm3 (4.30-5.90)
[2023-06-02 11:38] LABS: Platelet Count 11 K/mm3 (150-400)
[2023-06-05] VITALS (7 sets, daily range): BP systolic 125–150; BP diastolic 60–78
== END 2023-06-05 17:22 | disposition home or self-care (01) ==
LOC: ATC 03:50
PROVIDERS: Internal Medicine Hematology & Oncology
DX: D69.6 Thrombocytopenia, unspecified (principal); D63.1 Anemia in chronic kidney disease; N18.9 Chronic kidney disease, unspecified; E11.22 Type 2 diabetes mellitus with diabetic chronic kidney disease; I12.9 Hypertensive chronic kidney disease with stage 1 through stage 4 chronic kidney disease, or unspecified chronic kidney disease; D50.9 Iron deficiency anemia, unspecified
CPT/HCPCS: 36430; 36592; 80053; 85025; 86850; 86900; 86901; 86923; J7050; P9016

== ENCOUNTER 2023-06-09 03:05 | Day surgery (SDC) | payer OTHER ==
[2023-06-09 10:06] VITALS: BP 154/74
[2023-06-09 10:21] LABS: BASOPHILS ABSOLUTE AUTO 0.01 K/mm3 (0.00-0.23); BASOPHILS PERCENT AUTO 0 % (0-2); EOSINOPHILS ABSOLUTE AUTO 0.04 K/mm3 (0.00-0.68); EOSINOPHILS PERCENT AUTO 2 % (0-6); Hematocrit 24.9 % (37.0-53.0); Hemoglobin 7.7 g/dL (13.5-17.5); IMMATURE GRAN ABSOLUTE AUTO 0.01 K/mm3 (0.00-0.10); IMMATURE GRAN PERCENT AUTO 0 % (0-1); LYMPHOCYTES PERCENT AUTO 24 % (21-46); MONOCYTES ABSOLUTE AUTO 0.49 K/mm3 (0.16-1.47); MONOCYTES PERCENT AUTO 20 % (4-13); Mean Corpuscular HGB 33.9 pg (26.0-34.0); Mean Corpuscular HGB Conc 30.9 g/dL (31.5-36.5); Mean Corpuscular Volume 110 fL (80-100); NEUTROPHILS ABSOLUTE AUTO 1.34 K/mm3 (1.96-9.15); NEUTROPHILS PERCENT AUTO 54 % (41-73); RDW Coefficient Variation 24.8 % (11.7-14.2); RDW Standard Deviation 95.4 fL (35.1-46.3); Red Blood Cell Count 2.27 M/mm3 (4.30-5.90); White Blood Cell Count 2.49 K/mm3 (4.00-11.30)
[2023-06-09 10:48] LABS: Albumin/Globulin Ratio 0.9 (0.8-1.8); Bilirubin, Total 0.5 mg/dL (0.1-1.0); Calcium, Blood 8.6 mg/dL (8.5-10.1); Creatinine, Blood 2.11 mg/dL (0.60-1.20); Globulin, Blood 3.3 g/dL (2.2-4.0); Potassium, Blood 3.7 mmol/L (3.5-5.5); Total Protein, Blood 6.3 g/dL (6.4-8.2)
[2023-06-09 10:52] LABS: Platelet Count 12 K/mm3 (150-400)
== END 2023-06-09 10:06 | disposition home or self-care (01) ==
LOC: ATC 03:05
PROVIDERS: Internal Medicine Hematology & Oncology
DX: D69.6 Thrombocytopenia, unspecified (principal); E11.9 Type 2 diabetes mellitus without complications; D63.1 Anemia in chronic kidney disease; N18.9 Chronic kidney disease, unspecified; D50.9 Iron deficiency anemia, unspecified; I12.9 Hypertensive chronic kidney disease with stage 1 through stage 4 chronic kidney disease, or unspecified chronic kidney disease
CPT/HCPCS: 36592; 80053; 85025

== ENCOUNTER 2023-06-16 04:17 | Day surgery (SDC) | payer OTHER ==
[2023-06-16 09:47] VITALS: BP 157/69
[2023-06-16 11:15] LABS: BASOPHILS ABSOLUTE AUTO 0.01 K/mm3 (0.00-0.23); BASOPHILS PERCENT AUTO 1 % (0-2); EOSINOPHILS ABSOLUTE AUTO 0.04 K/mm3 (0.00-0.68); EOSINOPHILS PERCENT AUTO 2 % (0-6); Hematocrit 23.2 % (37.0-53.0); IMMATURE GRAN ABSOLUTE AUTO 0.01 K/mm3 (0.00-0.10); IMMATURE GRAN PERCENT AUTO 1 % (0-1); LYMPHOCYTES ABSOLUTE AUTO 0.53 K/mm3 (0.84-5.20); LYMPHOCYTES PERCENT AUTO 26 % (21-46); MONOCYTES PERCENT AUTO 20 % (4-13); Mean Corpuscular HGB 33.8 pg (26.0-34.0); Mean Corpuscular HGB Conc 30.2 g/dL (31.5-36.5); Mean Corpuscular Volume 112 fL (80-100); NEUTROPHILS ABSOLUTE AUTO 1.05 K/mm3 (1.96-9.15); NEUTROPHILS PERCENT AUTO 51 % (41-73); NRBC ABSOLUTE 0.02 K/mm3 (0.00-0.02); RDW Coefficient Variation 24.8 % (11.7-14.2); Red Blood Cell Count 2.07 M/mm3 (4.30-5.90); White Blood Cell Count 2.04 K/mm3 (4.00-11.30)
[2023-06-16 11:20] LABS: Platelet Count 10 K/mm3 (150-400)
[2023-06-16 11:39] LABS: Bilirubin, Total 0.3 mg/dL (0.1-1.0); Bun/Creatinine Ratio 31.2 (12.0-20.0); Calcium, Blood 8.5 mg/dL (8.5-10.1); Creatinine, Blood 2.31 mg/dL (0.60-1.20); Potassium, Blood 3.9 mmol/L (3.5-5.5)
== END 2023-06-16 22:40 | disposition home or self-care (01) ==
LOC: ATC 04:17
PROVIDERS: Internal Medicine Hematology & Oncology
DX: D69.6 Thrombocytopenia, unspecified (principal); D63.1 Anemia in chronic kidney disease; N18.9 Chronic kidney disease, unspecified; E11.22 Type 2 diabetes mellitus with diabetic chronic kidney disease; I12.9 Hypertensive chronic kidney disease with stage 1 through stage 4 chronic kidney disease, or unspecified chronic kidney disease; D50.9 Iron deficiency anemia, unspecified
CPT/HCPCS: 36592; 80053; 85025

== ENCOUNTER 2023-06-23 00:43 | Day surgery (SDC) | payer OTHER ==
[2023-06-23 09:55] VITALS: BP 111/64
[2023-06-23 10:12] LABS: BASOPHILS ABSOLUTE AUTO 0.01 K/mm3 (0.00-0.23); BASOPHILS PERCENT AUTO 1 % (0-2); EOSINOPHILS ABSOLUTE AUTO 0.04 K/mm3 (0.00-0.68); EOSINOPHILS PERCENT AUTO 2 % (0-6); Hematocrit 23.2 % (37.0-53.0); Hemoglobin 7.1 g/dL (13.5-17.5); IMMATURE GRAN ABSOLUTE AUTO 0.01 K/mm3 (0.00-0.10); IMMATURE GRAN PERCENT AUTO 1 % (0-1); LYMPHOCYTES ABSOLUTE AUTO 0.63 K/mm3 (0.84-5.20); LYMPHOCYTES PERCENT AUTO 29 % (21-46); MONOCYTES ABSOLUTE AUTO 0.52 K/mm3 (0.16-1.47); MONOCYTES PERCENT AUTO 24 % (4-13); Mean Corpuscular HGB 34.1 pg (26.0-34.0); Mean Corpuscular HGB Conc 30.6 g/dL (31.5-36.5); Mean Corpuscular Volume 112 fL (80-100); NEUTROPHILS ABSOLUTE AUTO 0.99 K/mm3 (1.96-9.15); NEUTROPHILS PERCENT AUTO 45 % (41-73); RDW Standard Deviation 96.5 fL (35.1-46.3); Red Blood Cell Count 2.08 M/mm3 (4.30-5.90)
[2023-06-23 10:27] LABS: Platelet Count 10 K/mm3 (150-400)
[2023-06-23 10:42] LABS: Bilirubin, Total 0.5 mg/dL (0.1-1.0); Bun/Creatinine Ratio 30.3 (12.0-20.0); Calcium, Blood 8.2 mg/dL (8.5-10.1); Creatinine, Blood 2.87 mg/dL (0.60-1.20); Potassium, Blood 3.9 mmol/L (3.5-5.5)
[2023-06-23] MEDS ORDERED: CYCLOSPORINE100 M2 PO (11:50)
[2023-06-26 14:07] LABS: HEMOGLOBIN A1C 5.4 % (4.8-5.6)
== END 2023-06-23 09:55 | disposition home or self-care (01) ==
LOC: ATC 00:43
PROVIDERS: Internal Medicine; Internal Medicine Hematology & Oncology
DX: D69.6 Thrombocytopenia, unspecified (principal); D64.9 Anemia, unspecified; E11.22 Type 2 diabetes mellitus with diabetic chronic kidney disease; I12.9 Hypertensive chronic kidney disease with stage 1 through stage 4 chronic kidney disease, or unspecified chronic kidney disease; N18.9 Chronic kidney disease, unspecified; Z87.891 Personal history of nicotine dependence; Z79.899 Other long term (current) drug therapy
CPT/HCPCS: 36592; 80053; 85025

== ENCOUNTER 2023-06-30 01:43 | Day surgery (SDC) | payer OTHER ==
[~2023-06-30 01:43] MED LIST changes: +CYCLOSPORINE100 M2 PO
[2023-06-30 10:01] VITALS: BP 146/74
[2023-06-30 10:09] LABS: BASOPHILS ABSOLUTE AUTO 0.02 K/mm3 (0.00-0.23); BASOPHILS PERCENT AUTO 1 % (0-2); EOSINOPHILS ABSOLUTE AUTO 0.03 K/mm3 (0.00-0.68); EOSINOPHILS PERCENT AUTO 1 % (0-6); Hematocrit 24.4 % (37.0-53.0); Hemoglobin 7.7 g/dL (13.5-17.5); IMMATURE GRAN ABSOLUTE AUTO 0.01 K/mm3 (0.00-0.10); IMMATURE GRAN PERCENT AUTO 0 % (0-1); LYMPHOCYTES ABSOLUTE AUTO 0.85 K/mm3 (0.84-5.20); LYMPHOCYTES PERCENT AUTO 31 % (21-46); MONOCYTES ABSOLUTE AUTO 0.57 K/mm3 (0.16-1.47); MONOCYTES PERCENT AUTO 21 % (4-13); Mean Corpuscular HGB 35.2 pg (26.0-34.0); Mean Corpuscular HGB Conc 31.6 g/dL (31.5-36.5); Mean Corpuscular Volume 111 fL (80-100); NEUTROPHILS ABSOLUTE AUTO 1.26 K/mm3 (1.96-9.15); NEUTROPHILS PERCENT AUTO 46 % (41-73); RDW Coefficient Variation 23.8 % (11.7-14.2); RDW Standard Deviation 95.7 fL (35.1-46.3); Red Blood Cell Count 2.19 M/mm3 (4.30-5.90); White Blood Cell Count 2.74 K/mm3 (4.00-11.30)
[2023-06-30 10:23] LABS: Platelet Count 10 K/mm3 (150-400)
[2023-06-30 10:27] LABS: Albumin/Globulin Ratio 0.9 (0.8-1.8); Bilirubin, Total 0.7 mg/dL (0.1-1.0); Bun/Creatinine Ratio 30.3 (12.0-20.0); Calcium, Blood 8.1 mg/dL (8.5-10.1); Creatinine, Blood 3.14 mg/dL (0.60-1.20); Globulin, Blood 3.3 g/dL (2.2-4.0); Percent Saturation 48.4 % (20.0-50.0); Potassium, Blood 4.3 mmol/L (3.5-5.5); Total Protein, Blood 6.3 g/dL (6.4-8.2); Uric Acid, Blood 6.4 mg/dL (3.5-7.2)
== END 2023-06-30 10:02 | disposition home or self-care (01) ==
LOC: ATC 01:43
PROVIDERS: Internal Medicine Hematology & Oncology
DX: E11.22 Type 2 diabetes mellitus with diabetic chronic kidney disease (principal); D69.6 Thrombocytopenia, unspecified; N18.32 Chronic kidney disease, stage 3b; D63.1 Anemia in chronic kidney disease; I12.9 Hypertensive chronic kidney disease with stage 1 through stage 4 chronic kidney disease, or unspecified chronic kidney disease; D50.9 Iron deficiency anemia, unspecified
CPT/HCPCS: 36592; 80053; 82306; 82728; 83540; 83550; 83970; 84550; 85025

== ENCOUNTER 2023-07-02 10:28 | Day surgery (SDC) | payer OTHER ==
[2023-07-02 10:32] VITALS: BP 150/66
[2023-07-02 11:19] LABS: Albumin, Blood 3.1 g/dL (3.4-5.0); Anion Gap 7 mmol/L (6-16); Blood Urea Nitrogen 99 mg/dL (8-24); CO2, Blood 23 mmol/L (21-32); Calcium, Blood 8.4 mg/dL (8.5-10.1); Chloride, Blood 116 mmol/L (98-108); Creatinine, Blood 3.41 mg/dL (0.60-1.20); Glomerular Filtration Rate 19 (60-); Glucose, Blood 81 mg/dL (70-99); Phosphorus, Blood 4.4 mg/dL (2.5-4.9); Potassium, Blood 4.2 mmol/L (3.5-5.5); Sodium, Blood 146 mmol/L (136-145)
== END 2023-07-02 10:37 | disposition home or self-care (01) ==
LOC: ATC 10:28
PROVIDERS: Hospitalist
DX: I12.9 Hypertensive chronic kidney disease with stage 1 through stage 4 chronic kidney disease, or unspecified chronic kidney disease (principal); E11.22 Type 2 diabetes mellitus with diabetic chronic kidney disease; N18.32 Chronic kidney disease, stage 3b; D69.6 Thrombocytopenia, unspecified; D64.9 Anemia, unspecified; I48.0 Paroxysmal atrial fibrillation; M10.9 Gout, unspecified; E78.5 Hyperlipidemia, unspecified
CPT/HCPCS: 36592; 80069; 80158

== ENCOUNTER 2023-07-07 02:48 | Day surgery (SDC) | payer OTHER ==
[2023-07-07 10:20] VITALS: BP 146/74
[2023-07-07 11:38] LABS: BASOPHILS ABSOLUTE AUTO 0.01 K/mm3 (0.00-0.23); BASOPHILS PERCENT AUTO 1 % (0-2); EOSINOPHILS ABSOLUTE AUTO 0.03 K/mm3 (0.00-0.68); EOSINOPHILS PERCENT AUTO 1 % (0-6); Hematocrit 23.6 % (37.0-53.0); Hemoglobin 7.4 g/dL (13.5-17.5); IMMATURE GRAN ABSOLUTE AUTO 0.01 K/mm3 (0.00-0.10); IMMATURE GRAN PERCENT AUTO 1 % (0-1); LYMPHOCYTES ABSOLUTE AUTO 0.56 K/mm3 (0.84-5.20); LYMPHOCYTES PERCENT AUTO 26 % (21-46); MONOCYTES PERCENT AUTO 23 % (4-13); Mean Corpuscular HGB 35.9 pg (26.0-34.0); Mean Corpuscular HGB Conc 31.4 g/dL (31.5-36.5); Mean Corpuscular Volume 115 fL (80-100); NEUTROPHILS ABSOLUTE AUTO 1.07 K/mm3 (1.96-9.15); NEUTROPHILS PERCENT AUTO 49 % (41-73); RDW Coefficient Variation 23.4 % (11.7-14.2); RDW Standard Deviation 95.4 fL (35.1-46.3); Red Blood Cell Count 2.06 M/mm3 (4.30-5.90); White Blood Cell Count 2.18 K/mm3 (4.00-11.30)
[2023-07-07 11:52] LABS: Platelet Count 11 K/mm3 (150-400)
[2023-07-07 11:57] LABS: Albumin/Globulin Ratio 0.9 (0.8-1.8); Bilirubin, Total 0.6 mg/dL (0.1-1.0); Bun/Creatinine Ratio 26.4 (12.0-20.0); Calcium, Blood 8.1 mg/dL (8.5-10.1); Creatinine, Blood 4.05 mg/dL (0.60-1.20); Globulin, Blood 3.4 g/dL (2.2-4.0); Potassium, Blood 4.6 mmol/L (3.5-5.5); Total Protein, Blood 6.4 g/dL (6.4-8.2)
[2023-07-09 09:38] LABS: CYCLOSPORINE A BY HPLC-MS/MS 162.3 ng/mL
== END 2023-07-07 10:37 | disposition home or self-care (01) ==
LOC: ATC 02:48
PROVIDERS: Hospitalist
DX: D69.6 Thrombocytopenia, unspecified (principal); D64.9 Anemia, unspecified; I48.0 Paroxysmal atrial fibrillation; E11.22 Type 2 diabetes mellitus with diabetic chronic kidney disease; I12.9 Hypertensive chronic kidney disease with stage 1 through stage 4 chronic kidney disease, or unspecified chronic kidney disease; N18.9 Chronic kidney disease, unspecified; M10.9 Gout, unspecified; G47.33 Obstructive sleep apnea (adult) (pediatric); E78.5 Hyperlipidemia, unspecified; Z79.899 Other long term (current) drug therapy; Z79.4 Long term (current) use of insulin
CPT/HCPCS: 36592; 80053; 80158; 85025

== ENCOUNTER 2023-07-15 01:05 | Day surgery (SDC) | payer OTHER ==
[2023-07-15 08:35] VITALS: BP 141/58
[2023-07-15] MEDS ORDERED: PROMACTA75 MG PO (08:50)
[2023-07-15 09:06] LABS: BASOPHILS ABSOLUTE AUTO 0.01 K/mm3 (0.00-0.23); BASOPHILS PERCENT AUTO 0 % (0-2); EOSINOPHILS ABSOLUTE AUTO 0.05 K/mm3 (0.00-0.68); EOSINOPHILS PERCENT AUTO 2 % (0-6); Hematocrit 22.2 % (37.0-53.0); IMMATURE GRAN ABSOLUTE AUTO 0.01 K/mm3 (0.00-0.10); IMMATURE GRAN PERCENT AUTO 0 % (0-1); LYMPHOCYTES ABSOLUTE AUTO 0.59 K/mm3 (0.84-5.20); LYMPHOCYTES PERCENT AUTO 24 % (21-46); MONOCYTES ABSOLUTE AUTO 0.46 K/mm3 (0.16-1.47); MONOCYTES PERCENT AUTO 19 % (4-13); Mean Corpuscular HGB 36.1 pg (26.0-34.0); Mean Corpuscular HGB Conc 31.5 g/dL (31.5-36.5); Mean Corpuscular Volume 114 fL (80-100); NEUTROPHILS ABSOLUTE AUTO 1.33 K/mm3 (1.96-9.15); NEUTROPHILS PERCENT AUTO 54 % (41-73); RDW Standard Deviation 91.1 fL (35.1-46.3); Red Blood Cell Count 1.94 M/mm3 (4.30-5.90); White Blood Cell Count 2.45 K/mm3 (4.00-11.30)
[2023-07-15 09:14] LABS: Platelet Count 11 K/mm3 (150-400)
[2023-07-15 09:30] LABS: Albumin, Blood 2.9 g/dL (3.4-5.0); Albumin/Globulin Ratio 0.8 (0.8-1.8); Bilirubin, Total 0.9 mg/dL (0.1-1.0); Bun/Creatinine Ratio 30.9 (12.0-20.0); Calcium, Blood 8.4 mg/dL (8.5-10.1); Creatinine, Blood 3.43 mg/dL (0.60-1.20); Globulin, Blood 3.6 g/dL (2.2-4.0); Potassium, Blood 3.9 mmol/L (3.5-5.5); Total Protein, Blood 6.5 g/dL (6.4-8.2)
[2023-07-17 14:03] LABS: CYCLOSPORINE A BY HPLC-MS/MS 73.2 ng/mL
== END 2023-07-15 08:47 | disposition home or self-care (01) ==
LOC: ATC 01:05
PROVIDERS: Internal Medicine Hematology & Oncology
DX: D69.6 Thrombocytopenia, unspecified (principal); I48.0 Paroxysmal atrial fibrillation; I12.9 Hypertensive chronic kidney disease with stage 1 through stage 4 chronic kidney disease, or unspecified chronic kidney disease; E11.22 Type 2 diabetes mellitus with diabetic chronic kidney disease; N18.9 Chronic kidney disease, unspecified; M10.9 Gout, unspecified; Z87.891 Personal history of nicotine dependence; Z79.899 Other long term (current) drug therapy
CPT/HCPCS: 36592; 80053; 85025

== ENCOUNTER 2023-07-21 03:49 | Day surgery (SDC) | payer OTHER ==
[~2023-07-21 03:49] MED LIST changes: +PROMACTA75 MG PO
[2023-07-21 08:40] VITALS: BP 134/75
[2023-07-21 08:52] LABS: Hematocrit 21.5 % (37.0-53.0); Hemoglobin 6.8 g/dL (13.5-17.5); Mean Corpuscular HGB 36.4 pg (26.0-34.0); Mean Corpuscular HGB Conc 31.6 g/dL (31.5-36.5); Mean Corpuscular Volume 115 fL (80-100); RDW Coefficient Variation 21.2 % (11.7-14.2); Red Blood Cell Count 1.87 M/mm3 (4.30-5.90); White Blood Cell Count 2.44 K/mm3 (4.00-11.30)
[2023-07-21 09:03] LABS: Platelet Count 10 K/mm3 (150-400)
[2023-07-21 09:11] LABS: Albumin, Blood 2.9 g/dL (3.4-5.0); Albumin/Globulin Ratio 0.8 (0.8-1.8); Bilirubin, Total 0.8 mg/dL (0.1-1.0); Bun/Creatinine Ratio 29.8 (12.0-20.0); Creatinine, Blood 3.36 mg/dL (0.60-1.20); Globulin, Blood 3.6 g/dL (2.2-4.0); Potassium, Blood 3.8 mmol/L (3.5-5.5); Total Protein, Blood 6.5 g/dL (6.4-8.2)
[2023-07-21 09:31] LABS: NEUTROPHILS PERCENT AUTO 58 % (41-73)
[2023-07-21 09:32] LABS: BASOPHILS ABSOLUTE AUTO 0.01 K/mm3 (0.00-0.23); BASOPHILS PERCENT AUTO 0 % (0-2); EOSINOPHILS ABSOLUTE AUTO 0.03 K/mm3 (0.00-0.68); EOSINOPHILS PERCENT AUTO 1 % (0-6); IMMATURE GRAN PERCENT AUTO 0 % (0-1); LYMPHOCYTES PERCENT AUTO 21 % (21-46); MONOCYTES ABSOLUTE AUTO 0.47 K/mm3 (0.16-1.47); MONOCYTES PERCENT AUTO 19 % (4-13); NEUTROPHILS ABSOLUTE AUTO 1.42 K/mm3 (1.96-9.15)
[2023-07-21 09:33] LABS: IMMATURE GRAN ABSOLUTE AUTO 0.01 K/mm3 (0.00-0.10)
[2023-07-23 20:38] LABS: CYCLOSPORINE A BY HPLC-MS/MS 64.6 ng/mL
== END 2023-07-21 08:42 | disposition home or self-care (01) ==
LOC: ATC 03:49
PROVIDERS: Internal Medicine Hematology & Oncology
DX: D69.6 Thrombocytopenia, unspecified (principal); E11.9 Type 2 diabetes mellitus without complications; E78.5 Hyperlipidemia, unspecified; I48.0 Paroxysmal atrial fibrillation; E11.22 Type 2 diabetes mellitus with diabetic chronic kidney disease; N18.9 Chronic kidney disease, unspecified; M10.9 Gout, unspecified; Z87.891 Personal history of nicotine dependence
CPT/HCPCS: 36592; 80053; 80158; 85025; 99211

== ENCOUNTER 2023-07-28 02:29 | Day surgery (SDC) | payer OTHER ==
[2023-07-28 09:37] VITALS: BP 131/59
[2023-07-28 10:01] LABS: BASOPHILS ABSOLUTE AUTO 0.01 K/mm3 (0.00-0.23); BASOPHILS PERCENT AUTO 0 % (0-2); EOSINOPHILS ABSOLUTE AUTO 0.03 K/mm3 (0.00-0.68); EOSINOPHILS PERCENT AUTO 1 % (0-6); Hematocrit 21.4 % (37.0-53.0); Hemoglobin 6.8 g/dL (13.5-17.5); IMMATURE GRAN ABSOLUTE AUTO 0.02 K/mm3 (0.00-0.10); IMMATURE GRAN PERCENT AUTO 1 % (0-1); LYMPHOCYTES ABSOLUTE AUTO 0.65 K/mm3 (0.84-5.20); LYMPHOCYTES PERCENT AUTO 23 % (21-46); MONOCYTES ABSOLUTE AUTO 0.56 K/mm3 (0.16-1.47); MONOCYTES PERCENT AUTO 20 % (4-13); Mean Corpuscular HGB 37.2 pg (26.0-34.0); Mean Corpuscular HGB Conc 31.8 g/dL (31.5-36.5); Mean Corpuscular Volume 117 fL (80-100); NEUTROPHILS ABSOLUTE AUTO 1.53 K/mm3 (1.96-9.15); NEUTROPHILS PERCENT AUTO 55 % (41-73); NRBC ABSOLUTE 0.02 K/mm3 (0.00-0.02); NRBC Auto 0.7 /100 WBC (0.0-0.2); RDW Coefficient Variation 20.7 % (11.7-14.2); RDW Standard Deviation 87.3 fL (35.1-46.3); Red Blood Cell Count 1.83 M/mm3 (4.30-5.90)
[2023-07-28 10:18] LABS: Albumin, Blood 2.9 g/dL (3.4-5.0); Albumin/Globulin Ratio 0.8 (0.8-1.8); Bilirubin, Total 0.9 mg/dL (0.1-1.0); Bun/Creatinine Ratio 30.1 (12.0-20.0); Calcium, Blood 8.2 mg/dL (8.5-10.1); Creatinine, Blood 3.36 mg/dL (0.60-1.20); Globulin, Blood 3.6 g/dL (2.2-4.0); Potassium, Blood 3.8 mmol/L (3.5-5.5); Total Protein, Blood 6.5 g/dL (6.4-8.2)
[2023-07-28 11:11] LABS: Platelet Count 10 K/mm3 (150-400)
[2023-07-30 10:25] LABS: CYCLOSPORINE A BY HPLC-MS/MS 108.4 ng/mL
== END 2023-07-28 09:40 | disposition home or self-care (01) ==
LOC: ATC 02:29
PROVIDERS: Internal Medicine Hematology & Oncology
DX: D69.6 Thrombocytopenia, unspecified (principal); D61.3 Idiopathic aplastic anemia; E78.5 Hyperlipidemia, unspecified; I48.0 Paroxysmal atrial fibrillation; G47.33 Obstructive sleep apnea (adult) (pediatric); E11.22 Type 2 diabetes mellitus with diabetic chronic kidney disease; I12.9 Hypertensive chronic kidney disease with stage 1 through stage 4 chronic kidney disease, or unspecified chronic kidney disease; N18.9 Chronic kidney disease, unspecified; M10.9 Gout, unspecified; Z87.891 Personal history of nicotine dependence
CPT/HCPCS: 36592; 80053; 80158; 85025

== ENCOUNTER 2023-08-06 01:31 | Day surgery (SDC) | payer OTHER ==
[2023-08-04 08:32] VITALS: BP 144/66
[2023-08-04 08:47] LABS: Hematocrit 20.8 % (37.0-53.0); Hemoglobin 6.4 g/dL (13.5-17.5); Mean Corpuscular HGB 36.6 pg (26.0-34.0); Mean Corpuscular HGB Conc 30.8 g/dL (31.5-36.5); Mean Corpuscular Volume 119 fL (80-100); NRBC ABSOLUTE 0.03 K/mm3 (0.00-0.02); NRBC Auto 1.3 /100 WBC (0.0-0.2); RDW Coefficient Variation 19.8 % (11.7-14.2); RDW Standard Deviation 87.2 fL (35.1-46.3); Red Blood Cell Count 1.75 M/mm3 (4.30-5.90); White Blood Cell Count 2.29 K/mm3 (4.00-11.30)
[2023-08-04 08:52] LABS: Platelet Count 11 K/mm3 (150-400)
[2023-08-04 09:08] LABS: Albumin, Blood 2.8 g/dL (3.4-5.0); Albumin/Globulin Ratio 0.8 (0.8-1.8); BASOPHILS PERCENT MAN 0 % (0-2); Bilirubin, Total 0.7 mg/dL (0.1-1.0); Bun/Creatinine Ratio 25.6 (12.0-20.0); Calcium, Blood 7.7 mg/dL (8.5-10.1); Creatinine, Blood 4.06 mg/dL (0.60-1.20); EOSINOPHILS PERCENT MAN 0 % (0-6); Globulin, Blood 3.5 g/dL (2.2-4.0); LYMPHOCYTES ABSOLUTE MAN 0.75 K/mm3 (0.84-5.20); LYMPHOCYTES PERCENT MAN 33 % (21-46); MONOCYTES ABSOLUTE MAN 0.25 K/mm3 (0.16-1.47); MONOCYTES PERCENT MAN 11 % (4-13); NEUTROPHILS ABSOLUTE MAN 1.28 K/mm3 (1.96-9.15); Potassium, Blood 3.6 mmol/L (3.5-5.5); SEG NEUTROPHILS PERCENT MAN 56 % (41-73); TOTAL CELLS COUNTED 100; Total Protein, Blood 6.3 g/dL (6.4-8.2)
[2023-08-06 07:42] VITALS: BP 157/66
[2023-08-06 08:00] VITALS: BP 132/60
[2023-08-06 09:16] VITALS: BP 151/56
[2023-08-06 09:34] VITALS: BP 153/63
[2023-08-06 10:48] LABS: CYCLOSPORINE A BY HPLC-MS/MS 110.7 ng/mL
[2023-08-06 10:55] VITALS: BP 150/68
== END 2023-08-06 10:55 | disposition home or self-care (01) ==
LOC: ATC 01:31
PROVIDERS: Internal Medicine Hematology & Oncology
DX: D69.6 Thrombocytopenia, unspecified (principal); E78.5 Hyperlipidemia, unspecified; I48.0 Paroxysmal atrial fibrillation; N18.9 Chronic kidney disease, unspecified; I12.9 Hypertensive chronic kidney disease with stage 1 through stage 4 chronic kidney disease, or unspecified chronic kidney disease; E11.22 Type 2 diabetes mellitus with diabetic chronic kidney disease; M10.9 Gout, unspecified; Z87.891 Personal history of nicotine dependence; D50.9 Iron deficiency anemia, unspecified
CPT/HCPCS: 36430; 36592; 80053; 80158; 85025; 86850; 86900; 86901; 86923; J7050; P9016

== ENCOUNTER 2023-08-11 01:50 | Day surgery (SDC) | payer OTHER ==
[2023-08-11 10:01] VITALS: BP 158/69
[2023-08-11 10:02] LABS: BASOPHILS ABSOLUTE AUTO 0.01 K/mm3 (0.00-0.23); BASOPHILS PERCENT AUTO 0 % (0-2); EOSINOPHILS ABSOLUTE AUTO 0.04 K/mm3 (0.00-0.68); EOSINOPHILS PERCENT AUTO 2 % (0-6); Hematocrit 23.8 % (37.0-53.0); Hemoglobin 7.7 g/dL (13.5-17.5); IMMATURE GRAN ABSOLUTE AUTO 0.01 K/mm3 (0.00-0.10); IMMATURE GRAN PERCENT AUTO 0 % (0-1); LYMPHOCYTES ABSOLUTE AUTO 0.46 K/mm3 (0.84-5.20); LYMPHOCYTES PERCENT AUTO 21 % (21-46); MONOCYTES ABSOLUTE AUTO 0.49 K/mm3 (0.16-1.47); MONOCYTES PERCENT AUTO 22 % (4-13); Mean Corpuscular HGB 36.3 pg (26.0-34.0); Mean Corpuscular HGB Conc 32.4 g/dL (31.5-36.5); Mean Corpuscular Volume 112 fL (80-100); NEUTROPHILS ABSOLUTE AUTO 1.22 K/mm3 (1.96-9.15); NEUTROPHILS PERCENT AUTO 55 % (41-73); RDW Coefficient Variation 21.2 % (11.7-14.2); RDW Standard Deviation 87.1 fL (35.1-46.3); Red Blood Cell Count 2.12 M/mm3 (4.30-5.90); White Blood Cell Count 2.23 K/mm3 (4.00-11.30)
[2023-08-11 10:18] LABS: Platelet Count 10 K/mm3 (150-400)
[2023-08-11 10:33] LABS: Albumin, Blood 2.8 g/dL (3.4-5.0); Albumin/Globulin Ratio 0.8 (0.8-1.8); Bun/Creatinine Ratio 31.5 (12.0-20.0); Calcium, Blood 8.1 mg/dL (8.5-10.1); Creatinine, Blood 3.05 mg/dL (0.60-1.20); Globulin, Blood 3.6 g/dL (2.2-4.0); Potassium, Blood 3.4 mmol/L (3.5-5.5); Total Protein, Blood 6.4 g/dL (6.4-8.2)
[2023-08-13 04:46] LABS: CYCLOSPORINE A BY HPLC-MS/MS 82.7 ng/mL
== END 2023-08-11 10:05 | disposition home or self-care (01) ==
LOC: ATC 01:50
PROVIDERS: Internal Medicine Hematology & Oncology
DX: D69.6 Thrombocytopenia, unspecified (principal); I48.0 Paroxysmal atrial fibrillation; G47.33 Obstructive sleep apnea (adult) (pediatric); E11.22 Type 2 diabetes mellitus with diabetic chronic kidney disease; I12.9 Hypertensive chronic kidney disease with stage 1 through stage 4 chronic kidney disease, or unspecified chronic kidney disease; N18.9 Chronic kidney disease, unspecified; E78.5 Hyperlipidemia, unspecified; M10.9 Gout, unspecified
CPT/HCPCS: 36592; 80053; 80158; 85025

== ENCOUNTER 2023-08-18 01:55 | Day surgery (SDC) | payer OTHER ==
[2023-08-18 08:44] VITALS: BP 142/62
[2023-08-18 09:48] LABS: BASOPHILS ABSOLUTE AUTO 0.02 K/mm3 (0.00-0.23); BASOPHILS PERCENT AUTO 1 % (0-2); EOSINOPHILS ABSOLUTE AUTO 0.03 K/mm3 (0.00-0.68); EOSINOPHILS PERCENT AUTO 1 % (0-6); IMMATURE GRAN ABSOLUTE AUTO 0.02 K/mm3 (0.00-0.10); IMMATURE GRAN PERCENT AUTO 1 % (0-1); LYMPHOCYTES ABSOLUTE AUTO 0.38 K/mm3 (0.84-5.20); LYMPHOCYTES PERCENT AUTO 17 % (21-46); MONOCYTES ABSOLUTE AUTO 0.42 K/mm3 (0.16-1.47); MONOCYTES PERCENT AUTO 19 % (4-13); Mean Corpuscular HGB 35.7 pg (26.0-34.0); Mean Corpuscular HGB Conc 31.8 g/dL (31.5-36.5); Mean Corpuscular Volume 112 fL (80-100); NEUTROPHILS ABSOLUTE AUTO 1.39 K/mm3 (1.96-9.15); NEUTROPHILS PERCENT AUTO 62 % (41-73); RDW Coefficient Variation 20.7 % (11.7-14.2); RDW Standard Deviation 84.5 fL (35.1-46.3); Red Blood Cell Count 1.96 M/mm3 (4.30-5.90); White Blood Cell Count 2.26 K/mm3 (4.00-11.30)
[2023-08-18 10:01] LABS: Platelet Count 10 K/mm3 (150-400)
[2023-08-18 10:32] LABS: Albumin, Blood 2.9 g/dL (3.4-5.0); Albumin/Globulin Ratio 0.8 (0.8-1.8); Bilirubin, Total 0.9 mg/dL (0.1-1.0); Bun/Creatinine Ratio 31.3 (12.0-20.0); Calcium, Blood 8.1 mg/dL (8.5-10.1); Creatinine, Blood 2.97 mg/dL (0.60-1.20); Globulin, Blood 3.5 g/dL (2.2-4.0); Potassium, Blood 3.4 mmol/L (3.5-5.5); Thyroid Stimulating Hormone 3.06 uIU/mL (0.360-4.800); Total Protein, Blood 6.4 g/dL (6.4-8.2); Uric Acid, Blood 6.5 mg/dL (3.5-7.2)
[2023-08-18] MEDS ORDERED: COLCHICINE0.6 MG PO (11:37)
[2023-08-18] MEDS ORDERED: GLUCHON PO (11:52)
[2023-08-18] MEDS ORDERED: DEXCOM G7 SENS1 EACH MC (11:56)
[2023-08-18] MEDS ORDERED: SEMGLEE (Y100 UNIT/2 SC (11:57)
[2023-08-18] MEDS ORDERED: B-12500 MC2 PO (11:59)
[2023-08-18] MEDS ORDERED: VITAMIN D350 MC3 PO (12:00)
[2023-08-20] LABS: CYCLOSPORINE A BY HPLC-MS/MS 83.2 ng/mL
[2023-08-20 02:51] LABS: VITAMIN D,1,25-DIHYDROXY 27.4 pg/mL (19.9-79.3)
== END 2023-08-18 09:02 | disposition home or self-care (01) ==
LOC: ATC 01:55
PROVIDERS: Internal Medicine; Internal Medicine Hematology & Oncology
DX: D69.6 Thrombocytopenia, unspecified (principal); M10.9 Gout, unspecified; E04.2 Nontoxic multinodular goiter; E78.5 Hyperlipidemia, unspecified; I48.0 Paroxysmal atrial fibrillation; E11.22 Type 2 diabetes mellitus with diabetic chronic kidney disease; I12.9 Hypertensive chronic kidney disease with stage 1 through stage 4 chronic kidney disease, or unspecified chronic kidney disease; N18.9 Chronic kidney disease, unspecified; G47.33 Obstructive sleep apnea (adult) (pediatric); Z87.891 Personal history of nicotine dependence
CPT/HCPCS: 36592; 80053; 80158; 82607; 82652; 83036; 84443; 84550; 85025

== ENCOUNTER → 2023-08-19 | Outpatient (CLI) | payer OTHER ==
[~2023-08-19] MED LIST changes: +B-12500 MC2 PO; +COLCHICINE0.6 MG PO; +DEXCOM G7 SENS1 EACH MC; +GLUCHON PO; +SEMGLEE (Y100 UNIT/2 SC; +VITAMIN D350 MC3 PO
[2023-08-19 21:03] LABS: Adenovirus F 40/41 Not Detected (NOT DETECT); Astrovirus Not Detected (NOT DETECT); Campylobacter Sp Not Detected (NOT DETECT); Cryptosporidium Not Detected (NOT DETECT); Cyclospora Cayetanensis Not Detected (NOT DETECT); E. Coli O157 Not Detected (NOT DETECT); Entamoeba Histolytica Not Detected (NOT DETECT); Enteroaggregative E. coli-EAEC Not Detected (NOT DETECT); Enteropathogenic E. coli-EPEC Not Detected (NOT DETECT); Enterotoxigenic E. coli-ETEC Not Detected (NOT DETECT); Giardia Lamblia Not Detected (NOT DETECT); Norovirus GI/GII Not Detected (NOT DETECT); Plesiomonas Shigelloides Not Detected (NOT DETECT); Rotavirus A Not Detected (NOT DETECT); Salmonella Sp Not Detected (NOT DETECT); Sapovirus Not Detected (NOT DETECT); Shiga Toxin-prod E. coli-STEC Not Detected (NOT DETECT); Shigella/Enteroin E. coli-EIEC Not Detected (NOT DETECT); Vibrio Cholerae Not Detected (NOT DETECT); Vibrio Sp Not Detected (NOT DETECT); Yersinia Enterocolitica Not Detected (NOT DETECT)
== END ==
LOC: LAB SHORT 14:44 → LAB 14:44
PROVIDERS: Internal Medicine
DX: R19.7 Diarrhea, unspecified (principal)
CPT/HCPCS: 87507

== ENCOUNTER 2023-08-25 03:35 | Day surgery (SDC) | payer OTHER ==
[2023-08-25 08:35] LABS: BASOPHILS ABSOLUTE AUTO 0.01 K/mm3 (0.00-0.23); BASOPHILS PERCENT AUTO 0 % (0-2); EOSINOPHILS ABSOLUTE AUTO 0.05 K/mm3 (0.00-0.68); EOSINOPHILS PERCENT AUTO 2 % (0-6); Hemoglobin 7.4 g/dL (13.5-17.5); IMMATURE GRAN ABSOLUTE AUTO 0.02 K/mm3 (0.00-0.10); IMMATURE GRAN PERCENT AUTO 1 % (0-1); LYMPHOCYTES ABSOLUTE AUTO 0.55 K/mm3 (0.84-5.20); LYMPHOCYTES PERCENT AUTO 24 % (21-46); MONOCYTES ABSOLUTE AUTO 0.41 K/mm3 (0.16-1.47); MONOCYTES PERCENT AUTO 18 % (4-13); Mean Corpuscular HGB 35.6 pg (26.0-34.0); Mean Corpuscular HGB Conc 30.8 g/dL (31.5-36.5); Mean Corpuscular Volume 115 fL (80-100); NEUTROPHILS ABSOLUTE AUTO 1.24 K/mm3 (1.96-9.15); NEUTROPHILS PERCENT AUTO 54 % (41-73); NRBC ABSOLUTE 0.02 K/mm3 (0.00-0.02); NRBC Auto 0.9 /100 WBC (0.0-0.2); RDW Coefficient Variation 20.4 % (11.7-14.2); RDW Standard Deviation 86.6 fL (35.1-46.3); Red Blood Cell Count 2.08 M/mm3 (4.30-5.90); White Blood Cell Count 2.28 K/mm3 (4.00-11.30)
[2023-08-25 08:38] VITALS: BP 158/74
[2023-08-25 08:46] LABS: Platelet Count 13 K/mm3 (150-400)
[2023-08-25 08:55] LABS: Albumin/Globulin Ratio 0.9 (0.8-1.8); Bun/Creatinine Ratio 29.9 (12.0-20.0); Calcium, Blood 8.2 mg/dL (8.5-10.1); Creatinine, Blood 3.04 mg/dL (0.60-1.20); Globulin, Blood 3.5 g/dL (2.2-4.0); Potassium, Blood 3.7 mmol/L (3.5-5.5); Total Protein, Blood 6.5 g/dL (6.4-8.2)
[2023-08-27 04:43] LABS: CYCLOSPORINE A BY HPLC-MS/MS 198.6 ng/mL
== END 2023-08-25 08:41 | disposition home or self-care (01) ==
LOC: ATC 03:35
PROVIDERS: Internal Medicine Hematology & Oncology
DX: D69.6 Thrombocytopenia, unspecified (principal); N18.9 Chronic kidney disease, unspecified; E11.22 Type 2 diabetes mellitus with diabetic chronic kidney disease; I12.9 Hypertensive chronic kidney disease with stage 1 through stage 4 chronic kidney disease, or unspecified chronic kidney disease; D50.9 Iron deficiency anemia, unspecified
CPT/HCPCS: 36592; 80053; 80158; 85025

== ENCOUNTER 2023-10-14 01:37 | Day surgery (SDC) | payer OTHER ==
[2023-10-14 10:14] VITALS: BP 141/76
== END 2023-10-14 10:14 | disposition home or self-care (01) ==
LOC: ATC 01:37
DX: D69.6 Thrombocytopenia, unspecified (principal); Z87.891 Personal history of nicotine dependence; Z79.01 Long term (current) use of anticoagulants; Z79.4 Long term (current) use of insulin
CPT/HCPCS: 99212

== ENCOUNTER 2023-10-28 03:27 | Day surgery (SDC) | payer OTHER ==
[2023-10-28 10:49] VITALS: BP 135/63
== END 2023-10-28 10:49 | disposition home or self-care (01) ==
LOC: ATC 03:27
DX: D69.6 Thrombocytopenia, unspecified (principal); D50.9 Iron deficiency anemia, unspecified; I12.9 Hypertensive chronic kidney disease with stage 1 through stage 4 chronic kidney disease, or unspecified chronic kidney disease; E11.22 Type 2 diabetes mellitus with diabetic chronic kidney disease; N18.9 Chronic kidney disease, unspecified; E78.5 Hyperlipidemia, unspecified; I48.0 Paroxysmal atrial fibrillation; G47.33 Obstructive sleep apnea (adult) (pediatric); Z87.891 Personal history of nicotine dependence; Z79.01 Long term (current) use of anticoagulants; Z79.4 Long term (current) use of insulin; Z79.899 Other long term (current) drug therapy
CPT/HCPCS: 99211

== ENCOUNTER 2023-11-04 09:31 | Day surgery (SDC) | payer OTHER ==
[2023-11-04 09:59] VITALS: BP 126/72
[2023-11-04 10:40] LABS: BASOPHILS ABSOLUTE AUTO 0.01 K/mm3 (0.00-0.23); BASOPHILS PERCENT AUTO 0 % (0-2); EOSINOPHILS ABSOLUTE AUTO 0.02 K/mm3 (0.00-0.68); EOSINOPHILS PERCENT AUTO 1 % (0-6); Hematocrit 23.4 % (37.0-53.0); Hemoglobin 7.1 g/dL (13.5-17.5); IMMATURE GRAN ABSOLUTE AUTO 0.02 K/mm3 (0.00-0.10); IMMATURE GRAN PERCENT AUTO 1 % (0-1); LYMPHOCYTES ABSOLUTE AUTO 0.62 K/mm3 (0.84-5.20); LYMPHOCYTES PERCENT AUTO 27 % (21-46); MONOCYTES ABSOLUTE AUTO 0.29 K/mm3 (0.16-1.47); MONOCYTES PERCENT AUTO 13 % (4-13); Mean Corpuscular HGB 36.6 pg (26.0-34.0); Mean Corpuscular HGB Conc 30.3 g/dL (31.5-36.5); Mean Corpuscular Volume 121 fL (80-100); NEUTROPHILS ABSOLUTE AUTO 1.36 K/mm3 (1.96-9.15); NEUTROPHILS PERCENT AUTO 59 % (41-73); NRBC ABSOLUTE 0.02 K/mm3 (0.00-0.02); NRBC Auto 0.9 /100 WBC (0.0-0.2); Red Blood Cell Count 1.94 M/mm3 (4.30-5.90); White Blood Cell Count 2.32 K/mm3 (4.00-11.30)
[2023-11-04 10:47] LABS: Platelet Count 19 K/mm3 (150-400)
[2023-11-04 11:10] LABS: Alanine Aminotransfer (ALT/SGP 8 U/L (12-78); Albumin, Blood 3.1 g/dL (3.4-5.0); Alk Phos 80 U/L (50-136); Anion Gap 12 mmol/L (3-11); Aspartate Aminotrans (AST/SGOT <3 U/L (12-37); Bilirubin, Total 1.1 mg/dL (0.1-1.0); Blood Urea Nitrogen 99 mg/dL (8-24); Bun/Creatinine Ratio 27.4 (12.0-20.0); CO2, Blood 20 mmol/L (21-32); Calcium, Blood 8.5 mg/dL (8.5-10.1); Chloride, Blood 117 mmol/L (98-108); Creatinine, Blood 3.61 mg/dL (0.60-1.20); Globulin, Blood 3.1 g/dL (2.2-4.0); Glomerular Filtration Rate 17 (60-); Glucose, Blood 91 mg/dL (70-99); Potassium, Blood 5.1 mmol/L (3.5-5.5); Sodium, Blood 144 mmol/L (136-145); Total Protein, Blood 6.2 g/dL (6.4-8.2)
[2023-11-06 14:53] LABS: CYCLOSPORINE A BY HPLC-MS/MS 96.7 ng/mL
== END 2023-11-04 10:02 | disposition home or self-care (01) ==
LOC: ATC 09:31
PROVIDERS: Internal Medicine Hematology & Oncology
DX: D64.9 Anemia, unspecified (principal); D69.6 Thrombocytopenia, unspecified; I12.9 Hypertensive chronic kidney disease with stage 1 through stage 4 chronic kidney disease, or unspecified chronic kidney disease; E11.22 Type 2 diabetes mellitus with diabetic chronic kidney disease; N18.9 Chronic kidney disease, unspecified; E78.5 Hyperlipidemia, unspecified; I48.0 Paroxysmal atrial fibrillation; G47.33 Obstructive sleep apnea (adult) (pediatric); Z87.891 Personal history of nicotine dependence; Z79.01 Long term (current) use of anticoagulants; Z79.4 Long term (current) use of insulin; Z79.899 Other long term (current) drug therapy
CPT/HCPCS: 36592; 80053; 85025

== ENCOUNTER 2023-11-11 04:31 | Day surgery (SDC) | payer OTHER ==
[2023-11-11 14:49] VITALS: BP 153/83
== END 2023-11-11 14:50 | disposition home or self-care (01) ==
LOC: ATC 04:31
DX: D69.6 Thrombocytopenia, unspecified (principal); I12.9 Hypertensive chronic kidney disease with stage 1 through stage 4 chronic kidney disease, or unspecified chronic kidney disease; E11.22 Type 2 diabetes mellitus with diabetic chronic kidney disease; N18.9 Chronic kidney disease, unspecified; D63.1 Anemia in chronic kidney disease; I48.0 Paroxysmal atrial fibrillation; E78.5 Hyperlipidemia, unspecified; Z87.891 Personal history of nicotine dependence; Z79.899 Other long term (current) drug therapy; Z79.01 Long term (current) use of anticoagulants; Z79.4 Long term (current) use of insulin
CPT/HCPCS: 99211

== ENCOUNTER 2023-12-22 05:32 | Day surgery (SDC) | payer OTHER ==
[2023-12-22 09:40] VITALS: BP 142/64
== END 2023-12-22 09:45 | disposition home or self-care (01) ==
LOC: ATC 05:32
DX: D64.9 Anemia, unspecified (principal); D69.6 Thrombocytopenia, unspecified; I12.9 Hypertensive chronic kidney disease with stage 1 through stage 4 chronic kidney disease, or unspecified chronic kidney disease; E11.22 Type 2 diabetes mellitus with diabetic chronic kidney disease; N18.9 Chronic kidney disease, unspecified; E78.5 Hyperlipidemia, unspecified; I48.0 Paroxysmal atrial fibrillation; G47.33 Obstructive sleep apnea (adult) (pediatric); Z87.891 Personal history of nicotine dependence; Z79.899 Other long term (current) drug therapy
CPT/HCPCS: 99212

== ENCOUNTER 2023-12-29 00:55 | Day surgery (SDC) | payer OTHER ==
[2023-12-29 09:54] VITALS: BP 160/60
[2023-12-29 10:10] LABS: BASOPHILS ABSOLUTE AUTO 0.01 K/mm3 (0.00-0.23); BASOPHILS PERCENT AUTO 0 % (0-2); EOSINOPHILS ABSOLUTE AUTO 0.03 K/mm3 (0.00-0.68); EOSINOPHILS PERCENT AUTO 1 % (0-6); Hematocrit 23.9 % (37.0-53.0); Hemoglobin 7.6 g/dL (13.5-17.5); IMMATURE GRAN ABSOLUTE AUTO 0.03 K/mm3 (0.00-0.10); IMMATURE GRAN PERCENT AUTO 1 % (0-1); LYMPHOCYTES ABSOLUTE AUTO 0.53 K/mm3 (0.84-5.20); LYMPHOCYTES PERCENT AUTO 23 % (21-46); MONOCYTES ABSOLUTE AUTO 0.38 K/mm3 (0.16-1.47); MONOCYTES PERCENT AUTO 16 % (4-13); Mean Corpuscular HGB 34.9 pg (26.0-34.0); Mean Corpuscular HGB Conc 31.8 g/dL (31.5-36.5); Mean Corpuscular Volume 110 fL (80-100); NEUTROPHILS ABSOLUTE AUTO 1.34 K/mm3 (1.96-9.15); NEUTROPHILS PERCENT AUTO 58 % (41-73); NRBC ABSOLUTE 0.02 K/mm3 (0.00-0.02); NRBC Auto 0.9 /100 WBC (0.0-0.2); RDW Coefficient Variation 18.6 % (11.7-14.2); Red Blood Cell Count 2.18 M/mm3 (4.30-5.90); White Blood Cell Count 2.32 K/mm3 (4.00-11.30)
[2023-12-29 10:19] LABS: Platelet Count 37 K/mm3 (150-400)
[2023-12-29 10:42] LABS: Albumin/Globulin Ratio 0.8 (0.8-1.8); Bilirubin, Total 1.5 mg/dL (0.1-1.0); Bun/Creatinine Ratio 40.7 (12.0-20.0); Calcium, Blood 8.6 mg/dL (8.5-10.1); Creatinine, Blood 3.27 mg/dL (0.60-1.20); Globulin, Blood 3.7 g/dL (2.2-4.0); Potassium, Blood 4.3 mmol/L (3.5-5.5); Total Protein, Blood 6.7 g/dL (6.4-8.2)
[2023-12-31 17:16] LABS: CYCLOSPORINE A BY HPLC-MS/MS 144.1 ng/mL
== END 2023-12-29 09:58 | disposition home or self-care (01) ==
LOC: ATC 00:55
PROVIDERS: Internal Medicine Hematology & Oncology
DX: D69.6 Thrombocytopenia, unspecified (principal); D61.3 Idiopathic aplastic anemia; E78.5 Hyperlipidemia, unspecified; I48.0 Paroxysmal atrial fibrillation; G47.33 Obstructive sleep apnea (adult) (pediatric); M10.9 Gout, unspecified; E11.22 Type 2 diabetes mellitus with diabetic chronic kidney disease; I12.9 Hypertensive chronic kidney disease with stage 1 through stage 4 chronic kidney disease, or unspecified chronic kidney disease; N18.9 Chronic kidney disease, unspecified
CPT/HCPCS: 36592; 80053; 80158; 85025

== ENCOUNTER → 2023-12-29 | Outpatient (CLI) | payer OTHER | LOC: LAB 18:12 → LAB SHORT 18:12 | DX: T81.83XD Persistent postprocedural fistula, subsequent encounter (principal); T14.8XXA Other injury of unspecified body region, initial encounter | CPT/HCPCS: 87070; 87075; 87076; 87077; 87185; 87186; 87205 ==

== ENCOUNTER 2024-01-06 03:27 | Day surgery (SDC) | payer OTHER ==
[2024-01-06 10:39] VITALS: BP 154/46
== END 2024-01-06 10:40 | disposition home or self-care (01) ==
LOC: ATC 03:27
DX: D69.6 Thrombocytopenia, unspecified (principal); D61.3 Idiopathic aplastic anemia; D64.9 Anemia, unspecified
CPT/HCPCS: 99211

== ENCOUNTER 2024-01-13 02:32 | Day surgery (SDC) | payer OTHER ==
[2024-01-13 09:31] VITALS: BP 135/67
[2024-01-13 09:47] LABS: BASOPHILS ABSOLUTE AUTO 0.01 K/mm3 (0.00-0.23); BASOPHILS PERCENT AUTO 0 % (0-2); EOSINOPHILS ABSOLUTE AUTO 0.05 K/mm3 (0.00-0.68); EOSINOPHILS PERCENT AUTO 2 % (0-6); Hematocrit 22.9 % (37.0-53.0); Hemoglobin 7.1 g/dL (13.5-17.5); IMMATURE GRAN ABSOLUTE AUTO 0.01 K/mm3 (0.00-0.10); IMMATURE GRAN PERCENT AUTO 0 % (0-1); LYMPHOCYTES ABSOLUTE AUTO 0.61 K/mm3 (0.84-5.20); LYMPHOCYTES PERCENT AUTO 26 % (21-46); MONOCYTES ABSOLUTE AUTO 0.35 K/mm3 (0.16-1.47); MONOCYTES PERCENT AUTO 15 % (4-13); Mean Corpuscular HGB 34.8 pg (26.0-34.0); Mean Corpuscular Volume 112 fL (80-100); NEUTROPHILS ABSOLUTE AUTO 1.35 K/mm3 (1.96-9.15); NEUTROPHILS PERCENT AUTO 57 % (41-73); NRBC ABSOLUTE 0.07 K/mm3 (0.00-0.02); NRBC Auto 2.9 /100 WBC (0.0-0.2); RDW Coefficient Variation 18.9 % (11.7-14.2); RDW Standard Deviation 78.3 fL (35.1-46.3); Red Blood Cell Count 2.04 M/mm3 (4.30-5.90); White Blood Cell Count 2.38 K/mm3 (4.00-11.30)
[2024-01-13 09:50] LABS: Platelet Count 34 K/mm3 (150-400)
[2024-01-13 10:07] LABS: Albumin, Blood 2.9 g/dL (3.4-5.0); Albumin/Globulin Ratio 0.8 (0.8-1.8); Bilirubin, Total 1.8 mg/dL (0.1-1.0); Bun/Creatinine Ratio 33.5 (12.0-20.0); Calcium, Blood 8.3 mg/dL (8.5-10.1); Creatinine, Blood 3.85 mg/dL (0.60-1.20); Globulin, Blood 3.7 g/dL (2.2-4.0); Potassium, Blood 4.6 mmol/L (3.5-5.5); Total Protein, Blood 6.6 g/dL (6.4-8.2)
[2024-01-15 07:37] LABS: CYCLOSPORINE A BY HPLC-MS/MS 154.9 ng/mL
== END 2024-01-13 09:40 | disposition home or self-care (01) ==
LOC: ATC 02:32
PROVIDERS: Internal Medicine Hematology & Oncology
DX: D69.6 Thrombocytopenia, unspecified (principal); D61.3 Idiopathic aplastic anemia
CPT/HCPCS: 36592; 80053; 80158; 85025

== ENCOUNTER 2024-01-29 01:54 | Day surgery (SDC) | payer OTHER ==
[2024-01-27 09:42] VITALS: BP 155/53
[2024-01-27 10:09] LABS: BASOPHILS ABSOLUTE AUTO 0.01 K/mm3 (0.00-0.23); BASOPHILS PERCENT AUTO 0 % (0-2); EOSINOPHILS ABSOLUTE AUTO 0.03 K/mm3 (0.00-0.68); EOSINOPHILS PERCENT AUTO 1 % (0-6); Hematocrit 20.3 % (37.0-53.0); Hemoglobin 6.2 g/dL (13.5-17.5); IMMATURE GRAN ABSOLUTE AUTO 0.02 K/mm3 (0.00-0.10); IMMATURE GRAN PERCENT AUTO 1 % (0-1); LYMPHOCYTES ABSOLUTE AUTO 0.38 K/mm3 (0.84-5.20); LYMPHOCYTES PERCENT AUTO 14 % (21-46); MONOCYTES ABSOLUTE AUTO 0.43 K/mm3 (0.16-1.47); MONOCYTES PERCENT AUTO 15 % (4-13); Mean Corpuscular HGB 34.4 pg (26.0-34.0); Mean Corpuscular HGB Conc 30.5 g/dL (31.5-36.5); Mean Corpuscular Volume 113 fL (80-100); NEUTROPHILS ABSOLUTE AUTO 1.94 K/mm3 (1.96-9.15); NEUTROPHILS PERCENT AUTO 69 % (41-73); NRBC ABSOLUTE 0.07 K/mm3 (0.00-0.02); NRBC Auto 2.5 /100 WBC (0.0-0.2); RDW Coefficient Variation 19.9 % (11.7-14.2); RDW Standard Deviation 81.9 fL (35.1-46.3); White Blood Cell Count 2.81 K/mm3 (4.00-11.30)
[2024-01-27 10:13] LABS: Platelet Count 38 K/mm3 (150-400)
[2024-01-27 10:27] LABS: BASOPHILS PERCENT MAN 0 % (0-2); EOSINOPHILS PERCENT MAN 0 % (0-6); LYMPHOCYTES ABSOLUTE MAN 0.47 K/mm3 (0.84-5.20); LYMPHOCYTES PERCENT MAN 17 % (21-46); MONOCYTES ABSOLUTE MAN 0.14 K/mm3 (0.16-1.47); MONOCYTES PERCENT MAN 5 % (4-13); NEUTROPHILS ABSOLUTE MAN 2.19 K/mm3 (1.96-9.15); SEG NEUTROPHILS PERCENT MAN 78 % (41-73); TOTAL CELLS COUNTED 100
[2024-01-27 10:29] LABS: Albumin/Globulin Ratio 0.8 (0.8-1.8); Bilirubin, Total 1.9 mg/dL (0.1-1.0); Bun/Creatinine Ratio 37.8 (12.0-20.0); Calcium, Blood 8.5 mg/dL (8.5-10.1); Creatinine, Blood 3.81 mg/dL (0.60-1.20); Globulin, Blood 3.6 g/dL (2.2-4.0); Potassium, Blood 4.3 mmol/L (3.5-5.5); Total Protein, Blood 6.6 g/dL (6.4-8.2)
[2024-01-29] VITALS (7 sets, daily range): BP systolic 113–131; BP diastolic 43–66
[2024-01-29 04:30] LABS: CYCLOSPORINE A BY HPLC-MS/MS 148.8 ng/mL
[2024-01-29] MEDS ORDERED: NS 250 ML IV SCH (06:45)
== END 2024-01-29 11:03 | disposition home or self-care (01) ==
LOC: ATC 01:54
PROVIDERS: Internal Medicine Hematology & Oncology
DX: D61.3 Idiopathic aplastic anemia (principal); D69.6 Thrombocytopenia, unspecified; I48.0 Paroxysmal atrial fibrillation; G47.33 Obstructive sleep apnea (adult) (pediatric); I12.9 Hypertensive chronic kidney disease with stage 1 through stage 4 chronic kidney disease, or unspecified chronic kidney disease; E11.22 Type 2 diabetes mellitus with diabetic chronic kidney disease; N18.9 Chronic kidney disease, unspecified; E78.5 Hyperlipidemia, unspecified; Z87.891 Personal history of nicotine dependence; Z79.01 Long term (current) use of anticoagulants; Z79.4 Long term (current) use of insulin; Z79.899 Other long term (current) drug therapy
CPT/HCPCS: 36430; 36592; 80053; 80158; 85025; 86850; 86900; 86901; 86923; J7050; P9016

== ENCOUNTER 2024-02-03 04:07 | Day surgery (SDC) | payer OTHER ==
[2024-02-03 09:50] VITALS: BP 132/79
== END 2024-02-03 09:50 | disposition home or self-care (01) ==
LOC: ATC 04:07
DX: D69.6 Thrombocytopenia, unspecified (principal); D61.3 Idiopathic aplastic anemia; E78.5 Hyperlipidemia, unspecified; I48.0 Paroxysmal atrial fibrillation; E11.22 Type 2 diabetes mellitus with diabetic chronic kidney disease; I12.9 Hypertensive chronic kidney disease with stage 1 through stage 4 chronic kidney disease, or unspecified chronic kidney disease; N18.9 Chronic kidney disease, unspecified; M10.9 Gout, unspecified; Z87.891 Personal history of nicotine dependence
CPT/HCPCS: 99212

== ENCOUNTER 2024-02-25 03:01 | Day surgery (SDC) | payer OTHER ==
[2024-02-23 09:40] VITALS: BP 153/55
[2024-02-23 10:00] LABS: BASOPHILS ABSOLUTE AUTO 0.01 K/mm3 (0.00-0.23); BASOPHILS PERCENT AUTO 0 % (0-2); EOSINOPHILS ABSOLUTE AUTO 0.01 K/mm3 (0.00-0.68); EOSINOPHILS PERCENT AUTO 0 % (0-6); Hematocrit 21.8 % (37.0-53.0); Hemoglobin 6.6 g/dL (13.5-17.5); IMMATURE GRAN ABSOLUTE AUTO 0.03 K/mm3 (0.00-0.10); IMMATURE GRAN PERCENT AUTO 1 % (0-1); LYMPHOCYTES PERCENT AUTO 22 % (21-46); MONOCYTES ABSOLUTE AUTO 0.33 K/mm3 (0.16-1.47); MONOCYTES PERCENT AUTO 15 % (4-13); Mean Corpuscular HGB 33.7 pg (26.0-34.0); Mean Corpuscular HGB Conc 30.3 g/dL (31.5-36.5); Mean Corpuscular Volume 111 fL (80-100); NEUTROPHILS ABSOLUTE AUTO 1.35 K/mm3 (1.96-9.15); NEUTROPHILS PERCENT AUTO 61 % (41-73); NRBC ABSOLUTE 0.06 K/mm3 (0.00-0.02); NRBC Auto 2.7 /100 WBC (0.0-0.2); RDW Coefficient Variation 21.5 % (11.7-14.2); RDW Standard Deviation 86.3 fL (35.1-46.3); Red Blood Cell Count 1.96 M/mm3 (4.30-5.90); White Blood Cell Count 2.23 K/mm3 (4.00-11.30)
[2024-02-23 10:09] LABS: Platelet Count 38 K/mm3 (150-400)
[2024-02-23 11:03] LABS: Alanine Aminotransfer (ALT/SGP 11 U/L (12-78); Albumin, Blood 2.7 g/dL (3.4-5.0); Albumin/Globulin Ratio 0.8 (0.8-1.8); Alk Phos 73 U/L (50-136); Anion Gap 18 mmol/L (3-11); Aspartate Aminotrans (AST/SGOT <3 U/L (12-37); Bilirubin, Total 1.4 mg/dL (0.1-1.0); Blood Urea Nitrogen 97 mg/dL (8-24); Bun/Creatinine Ratio 29.7 (12.0-20.0); CO2, Blood 16 mmol/L (21-32); Calcium, Blood 7.8 mg/dL (8.5-10.1); Chloride, Blood 116 mmol/L (98-108); Creatinine, Blood 3.27 mg/dL (0.60-1.20); Globulin, Blood 3.4 g/dL (2.2-4.0); Glomerular Filtration Rate 19 (60-); Glucose, Blood 83 mg/dL (70-99); Potassium, Blood 4.5 mmol/L (3.5-5.5); Sodium, Blood 145 mmol/L (136-145); Total Protein, Blood 6.1 g/dL (6.4-8.2)
[2024-02-25] VITALS (7 sets, daily range): BP systolic 111–128; BP diastolic 48–70
[2024-02-25] MEDS ORDERED: NS 250 ML IV SCH (07:10)
[2024-02-25 07:58] LABS: CYCLOSPORINE A BY HPLC-MS/MS 112.8 ng/mL
== END 2024-02-25 17:19 | disposition home or self-care (01) ==
LOC: ATC 03:01
PROVIDERS: Internal Medicine Hematology & Oncology
DX: D50.9 Iron deficiency anemia, unspecified (principal); D69.6 Thrombocytopenia, unspecified; I12.9 Hypertensive chronic kidney disease with stage 1 through stage 4 chronic kidney disease, or unspecified chronic kidney disease; E11.22 Type 2 diabetes mellitus with diabetic chronic kidney disease; N18.9 Chronic kidney disease, unspecified; E78.5 Hyperlipidemia, unspecified; I48.0 Paroxysmal atrial fibrillation; G47.33 Obstructive sleep apnea (adult) (pediatric); Z87.891 Personal history of nicotine dependence; Z79.899 Other long term (current) drug therapy
CPT/HCPCS: 36430; 36592; 80053; 80158; 85025; 86850; 86900; 86901; 86923; J7050; P9016

== ENCOUNTER 2024-03-02 00:38 | Day surgery (SDC) | payer OTHER ==
[2024-03-02 09:30] VITALS: BP 128/46
== END 2024-03-02 09:45 | disposition home or self-care (01) ==
LOC: ATC 00:38
DX: D69.6 Thrombocytopenia, unspecified (principal); I12.9 Hypertensive chronic kidney disease with stage 1 through stage 4 chronic kidney disease, or unspecified chronic kidney disease; E11.22 Type 2 diabetes mellitus with diabetic chronic kidney disease; N18.9 Chronic kidney disease, unspecified; E78.5 Hyperlipidemia, unspecified; I48.0 Paroxysmal atrial fibrillation; Z79.899 Other long term (current) drug therapy; Z79.01 Long term (current) use of anticoagulants; Z79.4 Long term (current) use of insulin
CPT/HCPCS: 99212

== ENCOUNTER 2024-03-09 03:47 | Day surgery (SDC) | payer OTHER ==
[2024-03-09 09:17] VITALS: BP 143/58
[2024-03-09 10:03] LABS: BASOPHILS ABSOLUTE AUTO 0.01 K/mm3 (0.00-0.23); BASOPHILS PERCENT AUTO 0 % (0-2); EOSINOPHILS ABSOLUTE AUTO 0.01 K/mm3 (0.00-0.68); EOSINOPHILS PERCENT AUTO 0 % (0-6); Hematocrit 23.1 % (37.0-53.0); IMMATURE GRAN ABSOLUTE AUTO 0.03 K/mm3 (0.00-0.10); IMMATURE GRAN PERCENT AUTO 1 % (0-1); LYMPHOCYTES PERCENT AUTO 26 % (21-46); MONOCYTES ABSOLUTE AUTO 0.37 K/mm3 (0.16-1.47); MONOCYTES PERCENT AUTO 16 % (4-13); Mean Corpuscular HGB 33.7 pg (26.0-34.0); Mean Corpuscular HGB Conc 30.3 g/dL (31.5-36.5); Mean Corpuscular Volume 111 fL (80-100); NEUTROPHILS ABSOLUTE AUTO 1.29 K/mm3 (1.96-9.15); NEUTROPHILS PERCENT AUTO 56 % (41-73); NRBC ABSOLUTE 0.04 K/mm3 (0.00-0.02); NRBC Auto 1.7 /100 WBC (0.0-0.2); RDW Coefficient Variation 20.9 % (11.7-14.2); RDW Standard Deviation 84.4 fL (35.1-46.3); Red Blood Cell Count 2.08 M/mm3 (4.30-5.90); White Blood Cell Count 2.31 K/mm3 (4.00-11.30)
[2024-03-09 10:07] LABS: Platelet Count 41 K/mm3 (150-400)
[2024-03-09 10:27] LABS: Alanine Aminotransfer (ALT/SGP 10 U/L (12-78); Albumin, Blood 2.7 g/dL (3.4-5.0); Albumin/Globulin Ratio 0.9 (0.8-1.8); Alk Phos 75 U/L (50-136); Anion Gap 14 mmol/L (3-11); Aspartate Aminotrans (AST/SGOT <3 U/L (12-37); Bilirubin, Total 1.2 mg/dL (0.1-1.0); Blood Urea Nitrogen 96 mg/dL (8-24); Bun/Creatinine Ratio 33.8 (12.0-20.0); CO2, Blood 17 mmol/L (21-32); Calcium, Blood 8.4 mg/dL (8.5-10.1); Chloride, Blood 120 mmol/L (98-108); Creatinine, Blood 2.84 mg/dL (0.60-1.20); Globulin, Blood 3.1 g/dL (2.2-4.0); Glomerular Filtration Rate 23 (60-); Glucose, Blood 68 mg/dL (70-99); Potassium, Blood 4.8 mmol/L (3.5-5.5); Sodium, Blood 146 mmol/L (136-145); Total Protein, Blood 5.8 g/dL (6.4-8.2)
[2024-03-09 10:47] LABS: BAND PERCENT MAN 1 % (0-8); BASOPHILS PERCENT MAN 0 % (0-2); EOSINOPHILS ABSOLUTE MAN 0.02 K/mm3 (0.00-0.68); EOSINOPHILS PERCENT MAN 1 % (0-6); LYMPHOCYTES % ATYPICAL MANUAL 1 % (0-0); LYMPHOCYTES ABSOLUTE MAN 0.71 K/mm3 (0.84-5.20); LYMPHOCYTES PERCENT MAN 30 % (21-46); MONOCYTES ABSOLUTE MAN 0.13 K/mm3 (0.16-1.47); MONOCYTES PERCENT MAN 6 % (4-13); NEUTROPHILS ABSOLUTE MAN 1.43 K/mm3 (1.96-9.15); SEG NEUTROPHILS PERCENT MAN 61 % (41-73); TOTAL CELLS COUNTED 100
[2024-03-11 10:55] LABS: CYCLOSPORINE A BY HPLC-MS/MS 112.6 ng/mL
== END 2024-03-09 09:35 | disposition home or self-care (01) ==
LOC: ATC 03:47
PROVIDERS: Internal Medicine Hematology & Oncology
DX: D61.9 Aplastic anemia, unspecified (principal); D69.6 Thrombocytopenia, unspecified; I12.9 Hypertensive chronic kidney disease with stage 1 through stage 4 chronic kidney disease, or unspecified chronic kidney disease; E11.22 Type 2 diabetes mellitus with diabetic chronic kidney disease; N18.9 Chronic kidney disease, unspecified; D50.9 Iron deficiency anemia, unspecified; E78.5 Hyperlipidemia, unspecified; I48.0 Paroxysmal atrial fibrillation; G47.33 Obstructive sleep apnea (adult) (pediatric); Z87.891 Personal history of nicotine dependence; Z79.4 Long term (current) use of insulin; Z79.899 Other long term (current) drug therapy
CPT/HCPCS: 36592; 80053; 85025

== ENCOUNTER 2024-03-16 00:48 | Day surgery (SDC) | payer OTHER ==
[2024-03-16 09:35] VITALS: BP 137/75
[2024-03-16 10:14] LABS: BASOPHILS ABSOLUTE AUTO 0.02 K/mm3 (0.00-0.23); BASOPHILS PERCENT AUTO 1 % (0-2); EOSINOPHILS ABSOLUTE AUTO 0.02 K/mm3 (0.00-0.68); EOSINOPHILS PERCENT AUTO 1 % (0-6); Hematocrit 23.2 % (37.0-53.0); Hemoglobin 7.3 g/dL (13.5-17.5); IMMATURE GRAN ABSOLUTE AUTO 0.03 K/mm3 (0.00-0.10); IMMATURE GRAN PERCENT AUTO 1 % (0-1); LYMPHOCYTES ABSOLUTE AUTO 0.52 K/mm3 (0.84-5.20); LYMPHOCYTES PERCENT AUTO 24 % (21-46); MONOCYTES ABSOLUTE AUTO 0.37 K/mm3 (0.16-1.47); MONOCYTES PERCENT AUTO 17 % (4-13); Mean Corpuscular HGB 34.8 pg (26.0-34.0); Mean Corpuscular HGB Conc 31.5 g/dL (31.5-36.5); Mean Corpuscular Volume 111 fL (80-100); Mean Platelet Volume 12.2 fL (9.1-12.4); NEUTROPHILS ABSOLUTE AUTO 1.25 K/mm3 (1.96-9.15); NEUTROPHILS PERCENT AUTO 57 % (41-73); NRBC ABSOLUTE 0.04 K/mm3 (0.00-0.02); NRBC Auto 1.8 /100 WBC (0.0-0.2); RDW Coefficient Variation 21.1 % (11.7-14.2); RDW Standard Deviation 83.8 fL (35.1-46.3); White Blood Cell Count 2.21 K/mm3 (4.00-11.30)
[2024-03-16 10:24] LABS: Platelet Count 48 K/mm3 (150-400)
== END 2024-03-16 09:48 | disposition home or self-care (01) ==
LOC: ATC 00:48
PROVIDERS: Internal Medicine Hematology & Oncology
DX: D69.6 Thrombocytopenia, unspecified (principal); I12.9 Hypertensive chronic kidney disease with stage 1 through stage 4 chronic kidney disease, or unspecified chronic kidney disease; E11.22 Type 2 diabetes mellitus with diabetic chronic kidney disease; N18.9 Chronic kidney disease, unspecified; I48.0 Paroxysmal atrial fibrillation; E78.5 Hyperlipidemia, unspecified; E66.9 Obesity, unspecified; Z87.891 Personal history of nicotine dependence; Z79.899 Other long term (current) drug therapy; Z79.01 Long term (current) use of anticoagulants; Z79.4 Long term (current) use of insulin
CPT/HCPCS: 36592; 85025

== ENCOUNTER 2024-03-25 04:22 | Day surgery (SDC) | payer OTHER ==
[2024-03-22 08:16] VITALS: BP 130/62
[2024-03-22 08:54] LABS: BASOPHILS ABSOLUTE AUTO 0.01 K/mm3 (0.00-0.23); BASOPHILS PERCENT AUTO 1 % (0-2); EOSINOPHILS ABSOLUTE AUTO 0.02 K/mm3 (0.00-0.68); EOSINOPHILS PERCENT AUTO 1 % (0-6); Hematocrit 22.4 % (37.0-53.0); Hemoglobin 6.9 g/dL (13.5-17.5); IMMATURE GRAN ABSOLUTE AUTO 0.04 K/mm3 (0.00-0.10); IMMATURE GRAN PERCENT AUTO 2 % (0-1); LYMPHOCYTES ABSOLUTE AUTO 0.57 K/mm3 (0.84-5.20); LYMPHOCYTES PERCENT AUTO 29 % (21-46); MONOCYTES ABSOLUTE AUTO 0.33 K/mm3 (0.16-1.47); MONOCYTES PERCENT AUTO 17 % (4-13); Mean Corpuscular HGB 34.3 pg (26.0-34.0); Mean Corpuscular HGB Conc 30.8 g/dL (31.5-36.5); Mean Corpuscular Volume 111 fL (80-100); NEUTROPHILS ABSOLUTE AUTO 1.02 K/mm3 (1.96-9.15); NEUTROPHILS PERCENT AUTO 51 % (41-73); NRBC ABSOLUTE 0.03 K/mm3 (0.00-0.02); NRBC Auto 1.5 /100 WBC (0.0-0.2); Platelet Count 54 K/mm3 (150-400); RDW Coefficient Variation 21.7 % (11.7-14.2); RDW Standard Deviation 88.1 fL (35.1-46.3); Red Blood Cell Count 2.01 M/mm3 (4.30-5.90); White Blood Cell Count 1.99 K/mm3 (4.00-11.30)
[2024-03-22 09:16] LABS: Albumin, Blood 2.9 g/dL (3.4-5.0); Albumin/Globulin Ratio 0.9 (0.8-1.8); Bilirubin, Total 1.1 mg/dL (0.1-1.0); Bun/Creatinine Ratio 32.1 (12.0-20.0); Calcium, Blood 8.2 mg/dL (8.5-10.1); Creatinine, Blood 2.93 mg/dL (0.60-1.20); Globulin, Blood 3.1 g/dL (2.2-4.0); Potassium, Blood 4.3 mmol/L (3.5-5.5)
[2024-03-25] VITALS (7 sets, daily range): BP systolic 111–142; BP diastolic 51–70
[2024-03-25] MEDS ORDERED: Alteplase Recombinant 2 MG / Vial IV PRN (06:55)
[2024-03-25] MEDS ORDERED: NS 250 ML IV SCH (13:30)
== END 2024-03-25 17:50 | disposition home or self-care (01) ==
LOC: ATC 04:22
PROVIDERS: Internal Medicine Hematology & Oncology
DX: D69.6 Thrombocytopenia, unspecified (principal); I12.9 Hypertensive chronic kidney disease with stage 1 through stage 4 chronic kidney disease, or unspecified chronic kidney disease; E11.22 Type 2 diabetes mellitus with diabetic chronic kidney disease; N18.9 Chronic kidney disease, unspecified; E78.5 Hyperlipidemia, unspecified; I48.0 Paroxysmal atrial fibrillation; Z87.891 Personal history of nicotine dependence; Z79.899 Other long term (current) drug therapy; Z79.01 Long term (current) use of anticoagulants; Z79.4 Long term (current) use of insulin
CPT/HCPCS: 36430; 36592; 80053; 80158; 85025; 86850; 86900; 86901; 86923; J7050; P9016

== ENCOUNTER 2024-03-30 04:34 | Day surgery (SDC) | payer OTHER ==
[2024-03-30 09:01] VITALS: BP 128/45
[2024-03-30 09:44] LABS: BASOPHILS ABSOLUTE AUTO 0.01 K/mm3 (0.00-0.23); BASOPHILS PERCENT AUTO 1 % (0-2); EOSINOPHILS ABSOLUTE AUTO 0.02 K/mm3 (0.00-0.68); EOSINOPHILS PERCENT AUTO 1 % (0-6); Hematocrit 25.3 % (37.0-53.0); Hemoglobin 7.7 g/dL (13.5-17.5); IMMATURE GRAN ABSOLUTE AUTO 0.01 K/mm3 (0.00-0.10); IMMATURE GRAN PERCENT AUTO 1 % (0-1); LYMPHOCYTES ABSOLUTE AUTO 0.47 K/mm3 (0.84-5.20); LYMPHOCYTES PERCENT AUTO 27 % (21-46); MONOCYTES ABSOLUTE AUTO 0.31 K/mm3 (0.16-1.47); MONOCYTES PERCENT AUTO 18 % (4-13); Mean Corpuscular HGB 33.3 pg (26.0-34.0); Mean Corpuscular HGB Conc 30.4 g/dL (31.5-36.5); Mean Corpuscular Volume 110 fL (80-100); NEUTROPHILS ABSOLUTE AUTO 0.93 K/mm3 (1.96-9.15); NEUTROPHILS PERCENT AUTO 53 % (41-73); RDW Coefficient Variation 22.5 % (11.7-14.2); RDW Standard Deviation 90.3 fL (35.1-46.3); Red Blood Cell Count 2.31 M/mm3 (4.30-5.90); White Blood Cell Count 1.75 K/mm3 (4.00-11.30)
[2024-03-30 09:53] LABS: Platelet Count 39 K/mm3 (150-400)
[2024-03-30 10:03] LABS: Alanine Aminotransfer (ALT/SGP 8 U/L (12-78); Albumin, Blood 2.7 g/dL (3.4-5.0); Albumin/Globulin Ratio 0.8 (0.8-1.8); Alk Phos 71 U/L (50-136); Anion Gap 13 mmol/L (3-11); Aspartate Aminotrans (AST/SGOT <3 U/L (12-37); Bilirubin, Total 1.2 mg/dL (0.1-1.0); Blood Urea Nitrogen 95 mg/dL (8-24); Bun/Creatinine Ratio 34.7 (12.0-20.0); CO2, Blood 18 mmol/L (21-32); Calcium, Blood 8.3 mg/dL (8.5-10.1); Chloride, Blood 119 mmol/L (98-108); Creatinine, Blood 2.74 mg/dL (0.60-1.20); Globulin, Blood 3.4 g/dL (2.2-4.0); Glomerular Filtration Rate 24 (60-); Glucose, Blood 84 mg/dL (70-99); Potassium, Blood 4.7 mmol/L (3.5-5.5); Sodium, Blood 145 mmol/L (136-145); Total Protein, Blood 6.1 g/dL (6.4-8.2)
== END 2024-03-30 22:55 | disposition home or self-care (01) ==
LOC: ATC 04:34
PROVIDERS: Internal Medicine Hematology & Oncology
DX: E11.69 Type 2 diabetes mellitus with other specified complication (principal); D69.6 Thrombocytopenia, unspecified; I12.9 Hypertensive chronic kidney disease with stage 1 through stage 4 chronic kidney disease, or unspecified chronic kidney disease; E11.22 Type 2 diabetes mellitus with diabetic chronic kidney disease; N18.9 Chronic kidney disease, unspecified; Z79.899 Other long term (current) drug therapy
CPT/HCPCS: 36592; 80053; 80158; 83036; 85025

== ENCOUNTER 2024-04-08 14:31 | Day surgery (SDC) | payer OTHER ==
[2024-04-06 09:26] VITALS: BP 141/50
[2024-04-06 10:24] LABS: BASOPHILS ABSOLUTE AUTO 0.01 K/mm3 (0.00-0.23); BASOPHILS PERCENT AUTO 0 % (0-2); EOSINOPHILS ABSOLUTE AUTO 0.02 K/mm3 (0.00-0.68); EOSINOPHILS PERCENT AUTO 1 % (0-6); Hematocrit 21.2 % (37.0-53.0); Hemoglobin 6.5 g/dL (13.5-17.5); IMMATURE GRAN ABSOLUTE AUTO 0.01 K/mm3 (0.00-0.10); IMMATURE GRAN PERCENT AUTO 0 % (0-1); LYMPHOCYTES ABSOLUTE AUTO 0.65 K/mm3 (0.84-5.20); LYMPHOCYTES PERCENT AUTO 27 % (21-46); MONOCYTES ABSOLUTE AUTO 0.47 K/mm3 (0.16-1.47); MONOCYTES PERCENT AUTO 19 % (4-13); Mean Corpuscular HGB 33.9 pg (26.0-34.0); Mean Corpuscular HGB Conc 30.7 g/dL (31.5-36.5); Mean Corpuscular Volume 110 fL (80-100); NEUTROPHILS ABSOLUTE AUTO 1.26 K/mm3 (1.96-9.15); NEUTROPHILS PERCENT AUTO 52 % (41-73); RDW Coefficient Variation 21.6 % (11.7-14.2); RDW Standard Deviation 85.5 fL (35.1-46.3); Red Blood Cell Count 1.92 M/mm3 (4.30-5.90); White Blood Cell Count 2.42 K/mm3 (4.00-11.30)
[2024-04-06 10:36] LABS: Albumin, Blood 2.8 g/dL (3.4-5.0); Albumin/Globulin Ratio 0.8 (0.8-1.8); Bilirubin, Total 1.1 mg/dL (0.1-1.0); Bun/Creatinine Ratio 37.1 (12.0-20.0); Calcium, Blood 8.5 mg/dL (8.5-10.1); Creatinine, Blood 2.86 mg/dL (0.60-1.20); Globulin, Blood 3.4 g/dL (2.2-4.0); Potassium, Blood 4.9 mmol/L (3.5-5.5); Total Protein, Blood 6.2 g/dL (6.4-8.2)
[2024-04-06 10:43] LABS: Platelet Count 47 K/mm3 (150-400)
[2024-04-08] VITALS (8 sets, daily range): BP systolic 120–133; BP diastolic 55–74
[2024-04-08 05:37] LABS: CYCLOSPORINE A BY HPLC-MS/MS 292.9 ng/mL
[~2024-04-08 14:31] MED LIST changes: +NS 250 ML IV SCH
== END 2024-04-08 17:13 | disposition home or self-care (01) ==
LOC: ATC 14:31
PROVIDERS: Internal Medicine Hematology & Oncology
DX: D61.3 Idiopathic aplastic anemia (principal); D69.6 Thrombocytopenia, unspecified; E78.5 Hyperlipidemia, unspecified; I48.0 Paroxysmal atrial fibrillation; E11.22 Type 2 diabetes mellitus with diabetic chronic kidney disease; I12.9 Hypertensive chronic kidney disease with stage 1 through stage 4 chronic kidney disease, or unspecified chronic kidney disease; N18.9 Chronic kidney disease, unspecified; Z79.899 Other long term (current) drug therapy; Z87.891 Personal history of nicotine dependence
CPT/HCPCS: 36430; 36592; 80053; 80158; 85025; 86850; 86900; 86901; 86923; J7050; P9016

== ENCOUNTER 2024-04-14 01:52 | Day surgery (SDC) | payer OTHER ==
[~2024-04-14 01:52] MED LIST changes: -NS 250 ML IV SCH
[2024-04-14 13:55] VITALS: BP 149/70
[2024-04-14 15:01] LABS: BASOPHILS ABSOLUTE AUTO 0.01 K/mm3 (0.00-0.23); BASOPHILS PERCENT AUTO 1 % (0-2); EOSINOPHILS ABSOLUTE AUTO 0.02 K/mm3 (0.00-0.68); EOSINOPHILS PERCENT AUTO 1 % (0-6); Hematocrit 26.7 % (37.0-53.0); Hemoglobin 8.4 g/dL (13.5-17.5); IMMATURE GRAN ABSOLUTE AUTO 0.05 K/mm3 (0.00-0.10); IMMATURE GRAN PERCENT AUTO 2 % (0-1); LYMPHOCYTES ABSOLUTE AUTO 0.46 K/mm3 (0.84-5.20); LYMPHOCYTES PERCENT AUTO 21 % (21-46); MONOCYTES ABSOLUTE AUTO 0.41 K/mm3 (0.16-1.47); MONOCYTES PERCENT AUTO 19 % (4-13); Mean Corpuscular HGB 33.2 pg (26.0-34.0); Mean Corpuscular HGB Conc 31.5 g/dL (31.5-36.5); Mean Corpuscular Volume 106 fL (80-100); NEUTROPHILS ABSOLUTE AUTO 1.22 K/mm3 (1.96-9.15); NEUTROPHILS PERCENT AUTO 56 % (41-73); RDW Coefficient Variation 21.9 % (11.7-14.2); RDW Standard Deviation 83.7 fL (35.1-46.3); Red Blood Cell Count 2.53 M/mm3 (4.30-5.90); White Blood Cell Count 2.17 K/mm3 (4.00-11.30)
[2024-04-14 15:14] LABS: Platelet Count 41 K/mm3 (150-400)
[2024-04-14 15:21] LABS: Albumin, Blood 2.9 g/dL (3.4-5.0); Albumin/Globulin Ratio 0.9 (0.8-1.8); Bilirubin, Total 1.3 mg/dL (0.1-1.0); Bun/Creatinine Ratio 38.5 (12.0-20.0); Calcium, Blood 8.6 mg/dL (8.5-10.1); Creatinine, Blood 2.73 mg/dL (0.60-1.20); Globulin, Blood 3.4 g/dL (2.2-4.0); Potassium, Blood 4.6 mmol/L (3.5-5.5); Total Protein, Blood 6.3 g/dL (6.4-8.2)
[2024-04-16 08:25] LABS: CYCLOSPORINE A BY HPLC-MS/MS 293.6 ng/mL
== END 2024-04-14 14:20 | disposition home or self-care (01) ==
LOC: ATC 01:52
PROVIDERS: Internal Medicine Hematology & Oncology
DX: D69.6 Thrombocytopenia, unspecified (principal)
CPT/HCPCS: 36592; 80053; 80158; 85025

== ENCOUNTER 2024-04-19 02:13 | Day surgery (SDC) | payer OTHER ==
[2024-04-19 09:20] VITALS: BP 132/63
[2024-04-19 09:56] LABS: BASOPHILS ABSOLUTE AUTO 0.02 K/mm3 (0.00-0.23); BASOPHILS PERCENT AUTO 1 % (0-2); EOSINOPHILS ABSOLUTE AUTO 0.02 K/mm3 (0.00-0.68); EOSINOPHILS PERCENT AUTO 1 % (0-6); Hematocrit 25.1 % (37.0-53.0); Hemoglobin 7.9 g/dL (13.5-17.5); IMMATURE GRAN ABSOLUTE AUTO 0.02 K/mm3 (0.00-0.10); IMMATURE GRAN PERCENT AUTO 1 % (0-1); LYMPHOCYTES ABSOLUTE AUTO 0.58 K/mm3 (0.84-5.20); LYMPHOCYTES PERCENT AUTO 29 % (21-46); MONOCYTES ABSOLUTE AUTO 0.42 K/mm3 (0.16-1.47); MONOCYTES PERCENT AUTO 21 % (4-13); Mean Corpuscular HGB 32.9 pg (26.0-34.0); Mean Corpuscular HGB Conc 31.5 g/dL (31.5-36.5); Mean Corpuscular Volume 105 fL (80-100); NEUTROPHILS ABSOLUTE AUTO 0.97 K/mm3 (1.96-9.15); NEUTROPHILS PERCENT AUTO 48 % (41-73); NRBC ABSOLUTE 0.02 K/mm3 (0.00-0.02); Platelet Count 51 K/mm3 (150-400); RDW Coefficient Variation 21.6 % (11.7-14.2); RDW Standard Deviation 82.5 fL (35.1-46.3); White Blood Cell Count 2.03 K/mm3 (4.00-11.30)
[2024-04-19 10:21] LABS: Mean Platelet Volume 13.5 fL (9.1-12.4)
[2024-04-19 11:11] LABS: Albumin, Blood 2.9 g/dL (3.4-5.0); Albumin/Globulin Ratio 0.9 (0.8-1.8); Bilirubin, Total 1.1 mg/dL (0.1-1.0); Bun/Creatinine Ratio 44.4 (12.0-20.0); Calcium, Blood 8.4 mg/dL (8.5-10.1); Creatinine, Blood 2.7 mg/dL (0.60-1.20); Globulin, Blood 3.3 g/dL (2.2-4.0); Potassium, Blood 4.2 mmol/L (3.5-5.5); Total Protein, Blood 6.2 g/dL (6.4-8.2)
[2024-04-21 05:07] LABS: CYCLOSPORINE A BY HPLC-MS/MS 182.4 ng/mL
== END 2024-04-19 09:45 | disposition home or self-care (01) ==
LOC: ATC 02:13
PROVIDERS: Internal Medicine Hematology & Oncology
DX: D61.3 Idiopathic aplastic anemia (principal); D69.6 Thrombocytopenia, unspecified; I12.9 Hypertensive chronic kidney disease with stage 1 through stage 4 chronic kidney disease, or unspecified chronic kidney disease; E11.22 Type 2 diabetes mellitus with diabetic chronic kidney disease; N18.9 Chronic kidney disease, unspecified; E78.5 Hyperlipidemia, unspecified; I48.0 Paroxysmal atrial fibrillation; Z87.891 Personal history of nicotine dependence; Z90.49 Acquired absence of other specified parts of digestive tract
CPT/HCPCS: 80053; 80158; 85025; 99212

== ENCOUNTER 2024-04-29 02:22 | Day surgery (SDC) | payer OTHER ==
[2024-04-27 09:24] VITALS: BP 140/64
[2024-04-27 10:00] LABS: BASOPHILS PERCENT AUTO 0 % (0-2); EOSINOPHILS PERCENT AUTO 0 % (0-6); Hematocrit 21.4 % (37.0-53.0); Hemoglobin 6.9 g/dL (13.5-17.5); IMMATURE GRAN ABSOLUTE AUTO 0.01 K/mm3 (0.00-0.10); IMMATURE GRAN PERCENT AUTO 1 % (0-1); LYMPHOCYTES ABSOLUTE AUTO 0.18 K/mm3 (0.84-5.20); LYMPHOCYTES PERCENT AUTO 13 % (21-46); MONOCYTES ABSOLUTE AUTO 0.19 K/mm3 (0.16-1.47); MONOCYTES PERCENT AUTO 14 % (4-13); Mean Corpuscular HGB 33.3 pg (26.0-34.0); Mean Corpuscular HGB Conc 32.2 g/dL (31.5-36.5); Mean Corpuscular Volume 103 fL (80-100); NEUTROPHILS ABSOLUTE AUTO 1.02 K/mm3 (1.96-9.15); NEUTROPHILS PERCENT AUTO 73 % (41-73); NRBC ABSOLUTE 0.02 K/mm3 (0.00-0.02); NRBC Auto 1.4 /100 WBC (0.0-0.2); RDW Coefficient Variation 21.1 % (11.7-14.2); RDW Standard Deviation 79.5 fL (35.1-46.3); Red Blood Cell Count 2.07 M/mm3 (4.30-5.90)
[2024-04-27 10:05] LABS: Platelet Count 47 K/mm3 (150-400)
[2024-04-27 10:30] LABS: Alanine Aminotransfer (ALT/SGP 7 U/L (12-78); Albumin, Blood 2.9 g/dL (3.4-5.0); Albumin/Globulin Ratio 0.9 (0.8-1.8); Alk Phos 69 U/L (50-136); Anion Gap 14 mmol/L (3-11); Aspartate Aminotrans (AST/SGOT <3 U/L (12-37); Blood Urea Nitrogen 116 mg/dL (8-24); CO2, Blood 18 mmol/L (21-32); Calcium, Blood 8.6 mg/dL (8.5-10.1); Chloride, Blood 116 mmol/L (98-108); Globulin, Blood 3.2 g/dL (2.2-4.0); Glomerular Filtration Rate 24 (60-); Glucose, Blood 190 mg/dL (70-99); Potassium, Blood 4.7 mmol/L (3.5-5.5); Sodium, Blood 143 mmol/L (136-145); Total Protein, Blood 6.1 g/dL (6.4-8.2)
[2024-04-29] VITALS (7 sets, daily range): BP systolic 106–139; BP diastolic 39–92
[2024-04-29] MEDS ORDERED: NS 250 ML IV SCH (06:45)
[2024-04-29 12:59] LABS: CYCLOSPORINE A BY HPLC-MS/MS 121.2 ng/mL
== END 2024-04-29 11:17 | disposition home or self-care (01) ==
LOC: ATC 02:22
PROVIDERS: Internal Medicine Hematology & Oncology
DX: D61.3 Idiopathic aplastic anemia (principal); D69.6 Thrombocytopenia, unspecified; I12.9 Hypertensive chronic kidney disease with stage 1 through stage 4 chronic kidney disease, or unspecified chronic kidney disease; E11.22 Type 2 diabetes mellitus with diabetic chronic kidney disease; N18.9 Chronic kidney disease, unspecified; E78.5 Hyperlipidemia, unspecified; E66.9 Obesity, unspecified; I48.0 Paroxysmal atrial fibrillation; G47.33 Obstructive sleep apnea (adult) (pediatric); Z90.49 Acquired absence of other specified parts of digestive tract; Z87.891 Personal history of nicotine dependence; Z68.38 Body mass index [BMI] 38.0-38.9, adult; Z79.4 Long term (current) use of insulin; Z79.899 Other long term (current) drug therapy
CPT/HCPCS: 36592; 80053; 80158; 85025; 86850; 86900; 86901; 86923; J7050; P9016

== ENCOUNTER 2024-05-04 04:08 | Day surgery (SDC) | payer OTHER ==
[2024-05-04 08:50] VITALS: BP 147/65
[2024-05-04] MEDS ORDERED: Alteplase Recombinant 2 MG / Vial IV PRN (09:25)
[2024-05-04 10:20] LABS: BASOPHILS ABSOLUTE AUTO 0.01 K/mm3 (0.00-0.23); BASOPHILS PERCENT AUTO 1 % (0-2); EOSINOPHILS ABSOLUTE AUTO 0.02 K/mm3 (0.00-0.68); EOSINOPHILS PERCENT AUTO 1 % (0-6); Hematocrit 22.5 % (37.0-53.0); Hemoglobin 7.2 g/dL (13.5-17.5); IMMATURE GRAN ABSOLUTE AUTO 0.01 K/mm3 (0.00-0.10); IMMATURE GRAN PERCENT AUTO 1 % (0-1); LYMPHOCYTES ABSOLUTE AUTO 0.34 K/mm3 (0.84-5.20); LYMPHOCYTES PERCENT AUTO 20 % (21-46); MONOCYTES ABSOLUTE AUTO 0.39 K/mm3 (0.16-1.47); MONOCYTES PERCENT AUTO 23 % (4-13); Mean Corpuscular HGB 33.2 pg (26.0-34.0); Mean Corpuscular Volume 104 fL (80-100); NEUTROPHILS ABSOLUTE AUTO 0.94 K/mm3 (1.96-9.15); NEUTROPHILS PERCENT AUTO 55 % (41-73); RDW Coefficient Variation 20.6 % (11.7-14.2); RDW Standard Deviation 77.6 fL (35.1-46.3); Red Blood Cell Count 2.17 M/mm3 (4.30-5.90); White Blood Cell Count 1.71 K/mm3 (4.00-11.30)
[2024-05-04 10:21] LABS: Mean Platelet Volume 13.8 fL (9.1-12.4)
[2024-05-04 10:30] LABS: Platelet Count 38 K/mm3 (150-400)
[2024-05-04 10:40] LABS: Albumin, Blood 2.7 g/dL (3.4-5.0); Albumin/Globulin Ratio 0.9 (0.8-1.8); Bilirubin, Total 1.1 mg/dL (0.1-1.0); Bun/Creatinine Ratio 44.3 (12.0-20.0); Calcium, Blood 7.6 mg/dL (8.5-10.1); Creatinine, Blood 2.71 mg/dL (0.60-1.20); Globulin, Blood 2.9 g/dL (2.2-4.0); Potassium, Blood 3.8 mmol/L (3.5-5.5); Total Protein, Blood 5.6 g/dL (6.4-8.2)
[2024-05-06 00:12] LABS: CYCLOSPORINE A BY HPLC-MS/MS 144.2 ng/mL
== END 2024-05-04 10:09 | disposition home or self-care (01) ==
LOC: ATC 04:08
PROVIDERS: Internal Medicine Hematology & Oncology
DX: D61.9 Aplastic anemia, unspecified (principal); D69.6 Thrombocytopenia, unspecified; I12.9 Hypertensive chronic kidney disease with stage 1 through stage 4 chronic kidney disease, or unspecified chronic kidney disease; E11.22 Type 2 diabetes mellitus with diabetic chronic kidney disease; N18.9 Chronic kidney disease, unspecified; E78.5 Hyperlipidemia, unspecified; I48.0 Paroxysmal atrial fibrillation; G47.33 Obstructive sleep apnea (adult) (pediatric); Z87.891 Personal history of nicotine dependence; Z79.899 Other long term (current) drug therapy; Z90.49 Acquired absence of other specified parts of digestive tract
CPT/HCPCS: 36592; 36593; 80053; 80158; 85025; J2997

== ENCOUNTER 2024-05-10 03:09 | Day surgery (SDC) | payer OTHER ==
[2024-05-10 08:50] VITALS: BP 140/59
[2024-05-10] MEDS ORDERED: Alteplase Recombinant 2 MG / Vial IV PRN (09:10)
[2024-05-10 10:29] LABS: Hematocrit 23.3 % (37.0-53.0); Hemoglobin 7.5 g/dL (13.5-17.5); Mean Corpuscular HGB 33.6 pg (26.0-34.0); Mean Corpuscular HGB Conc 32.2 g/dL (31.5-36.5); Mean Corpuscular Volume 105 fL (80-100); NRBC ABSOLUTE 0.02 K/mm3 (0.00-0.02); NRBC Auto 1.2 /100 WBC (0.0-0.2); RDW Coefficient Variation 20.8 % (11.7-14.2); RDW Standard Deviation 78.8 fL (35.1-46.3); Red Blood Cell Count 2.23 M/mm3 (4.30-5.90); White Blood Cell Count 1.64 K/mm3 (4.00-11.30)
[2024-05-10 10:35] LABS: Platelet Count 34 K/mm3 (150-400)
[2024-05-10 11:05] LABS: BASOPHILS ABSOLUTE MAN 0.01 K/mm3 (0.00-0.23); BASOPHILS PERCENT MAN 1 % (0-2); EOSINOPHILS ABSOLUTE MAN 0.03 K/mm3 (0.00-0.68); EOSINOPHILS PERCENT MAN 2 % (0-6); LYMPHOCYTES ABSOLUTE MAN 0.36 K/mm3 (0.84-5.20); LYMPHOCYTES PERCENT MAN 22 % (21-46); MONOCYTES ABSOLUTE MAN 0.27 K/mm3 (0.16-1.47); MONOCYTES PERCENT MAN 17 % (4-13); NEUTROPHILS ABSOLUTE MAN 0.95 K/mm3 (1.96-9.15); SEG NEUTROPHILS PERCENT MAN 58 % (41-73); TOTAL CELLS COUNTED 100
[2024-05-10 11:13] LABS: Alanine Aminotransfer (ALT/SGP 11 U/L (12-78); Albumin, Blood 2.8 g/dL (3.4-5.0); Albumin/Globulin Ratio 0.9 (0.8-1.8); Alk Phos 57 U/L (50-136); Anion Gap 12 mmol/L (3-11); Aspartate Aminotrans (AST/SGOT <3 U/L (12-37); Bilirubin, Total 1.2 mg/dL (0.1-1.0); Blood Urea Nitrogen 97 mg/dL (8-24); CO2, Blood 20 mmol/L (21-32); Calcium, Blood 8.1 mg/dL (8.5-10.1); Chloride, Blood 117 mmol/L (98-108); Creatinine, Blood 2.77 mg/dL (0.60-1.20); Globulin, Blood 3.2 g/dL (2.2-4.0); Glomerular Filtration Rate 24 (60-); Glucose, Blood 88 mg/dL (70-99); Potassium, Blood 3.8 mmol/L (3.5-5.5); Sodium, Blood 145 mmol/L (136-145)
[2024-05-12 06:59] LABS: CYCLOSPORINE A BY HPLC-MS/MS 99.9 ng/mL
== END 2024-05-10 10:15 | disposition home or self-care (01) ==
LOC: ATC 03:09
PROVIDERS: Internal Medicine Hematology & Oncology
DX: D61.3 Idiopathic aplastic anemia (principal); D69.6 Thrombocytopenia, unspecified; I12.9 Hypertensive chronic kidney disease with stage 1 through stage 4 chronic kidney disease, or unspecified chronic kidney disease; E11.22 Type 2 diabetes mellitus with diabetic chronic kidney disease; N18.9 Chronic kidney disease, unspecified; I48.0 Paroxysmal atrial fibrillation; E78.5 Hyperlipidemia, unspecified; G47.33 Obstructive sleep apnea (adult) (pediatric); E66.9 Obesity, unspecified; Z68.38 Body mass index [BMI] 38.0-38.9, adult; Z87.891 Personal history of nicotine dependence; Z79.4 Long term (current) use of insulin; Z79.899 Other long term (current) drug therapy
CPT/HCPCS: 36592; 36593; 80053; 80158; 85007; 85027; J2997

== ENCOUNTER 2024-05-27 01:44 | Day surgery (SDC) | payer OTHER ==
[2024-05-24 09:17] VITALS: BP 144/71
[2024-05-24 10:08] LABS: BASOPHILS ABSOLUTE AUTO 0.02 K/mm3 (0.00-0.23); BASOPHILS PERCENT AUTO 1 % (0-2); EOSINOPHILS ABSOLUTE AUTO 0.03 K/mm3 (0.00-0.68); EOSINOPHILS PERCENT AUTO 2 % (0-6); Hematocrit 22.6 % (37.0-53.0); IMMATURE GRAN ABSOLUTE AUTO 0.01 K/mm3 (0.00-0.10); IMMATURE GRAN PERCENT AUTO 1 % (0-1); LYMPHOCYTES ABSOLUTE AUTO 0.49 K/mm3 (0.84-5.20); LYMPHOCYTES PERCENT AUTO 27 % (21-46); MONOCYTES ABSOLUTE AUTO 0.42 K/mm3 (0.16-1.47); MONOCYTES PERCENT AUTO 23 % (4-13); Mean Corpuscular Volume 107 fL (80-100); NEUTROPHILS ABSOLUTE AUTO 0.85 K/mm3 (1.96-9.15); NEUTROPHILS PERCENT AUTO 47 % (41-73); NRBC ABSOLUTE 0.05 K/mm3 (0.00-0.02); NRBC Auto 2.7 /100 WBC (0.0-0.2); RDW Coefficient Variation 22.5 % (11.7-14.2); RDW Standard Deviation 87.5 fL (35.1-46.3); Red Blood Cell Count 2.12 M/mm3 (4.30-5.90); White Blood Cell Count 1.82 K/mm3 (4.00-11.30)
[2024-05-24 10:16] LABS: Platelet Count 50 K/mm3 (150-400)
[2024-05-24 10:25] LABS: Alanine Aminotransfer (ALT/SGP 10 U/L (12-78); Albumin, Blood 2.5 g/dL (3.4-5.0); Albumin/Globulin Ratio 0.7 (0.8-1.8); Alk Phos 69 U/L (50-136); Anion Gap 12 mmol/L (3-11); Aspartate Aminotrans (AST/SGOT <3 U/L (12-37); Blood Urea Nitrogen 99 mg/dL (8-24); CO2, Blood 19 mmol/L (21-32); Chloride, Blood 118 mmol/L (98-108); Creatinine, Blood 2.91 mg/dL (0.60-1.20); Globulin, Blood 3.4 g/dL (2.2-4.0); Glomerular Filtration Rate 22 (60-); Glucose, Blood 80 mg/dL (70-99); Potassium, Blood 4.1 mmol/L (3.5-5.5); Sodium, Blood 145 mmol/L (136-145); Total Protein, Blood 5.9 g/dL (6.4-8.2)
[2024-05-26 15:52] LABS: CYCLOSPORINE A BY HPLC-MS/MS 147.1 ng/mL
[~2024-05-27 01:44] MED LIST changes: +AMOX-CLAV 500-1 EAC5
[2024-05-27] MEDS ORDERED: NS 250 ML IV SCH (06:55)
[2024-05-27 08:08] VITALS: BP 122/53
[2024-05-27 08:30] VITALS: BP 104/44
[2024-05-27 09:32] VITALS: BP 116/54
[2024-05-27 10:04] VITALS: BP 123/59
[2024-05-27 10:27] VITALS: BP 114/69
[2024-05-27 11:29] VITALS: BP 120/43
== END 2024-05-27 11:55 | disposition home or self-care (01) ==
LOC: ATC 01:44
PROVIDERS: Internal Medicine Hematology & Oncology
DX: D61.3 Idiopathic aplastic anemia (principal); D69.6 Thrombocytopenia, unspecified; I12.9 Hypertensive chronic kidney disease with stage 1 through stage 4 chronic kidney disease, or unspecified chronic kidney disease; E11.22 Type 2 diabetes mellitus with diabetic chronic kidney disease; N18.9 Chronic kidney disease, unspecified; E78.5 Hyperlipidemia, unspecified; I48.0 Paroxysmal atrial fibrillation; G47.33 Obstructive sleep apnea (adult) (pediatric); Z90.49 Acquired absence of other specified parts of digestive tract; Z87.891 Personal history of nicotine dependence; Z79.899 Other long term (current) drug therapy
CPT/HCPCS: 36430; 36592; 80053; 80158; 85025; 86850; 86900; 86901; 86923; J7050; P9016

== ENCOUNTER 2024-06-03 02:01 | Day surgery (SDC) | payer OTHER ==
[2024-06-01 09:00] VITALS: BP 152/61
[2024-06-01 10:07] LABS: Hemoglobin 6.9 g/dL (13.5-17.5); Mean Corpuscular HGB 32.7 pg (26.0-34.0); Mean Corpuscular HGB Conc 31.4 g/dL (31.5-36.5); Mean Corpuscular Volume 104 fL (80-100); NRBC ABSOLUTE 0.02 K/mm3 (0.00-0.02); NRBC Auto 1.4 /100 WBC (0.0-0.2); RDW Coefficient Variation 21.9 % (11.7-14.2); RDW Standard Deviation 82.7 fL (35.1-46.3); Red Blood Cell Count 2.11 M/mm3 (4.30-5.90); White Blood Cell Count 1.38 K/mm3 (4.00-11.30)
[2024-06-01 10:09] LABS: Mean Platelet Volume 13.8 fL (9.1-12.4)
[2024-06-01 10:11] LABS: Platelet Count 40 K/mm3 (150-400)
[2024-06-01 10:36] LABS: BAND PERCENT MAN 6 % (0-8); BASOPHILS PERCENT MAN 0 % (0-2); EOSINOPHILS ABSOLUTE MAN 0.05 K/mm3 (0.00-0.68); EOSINOPHILS PERCENT MAN 4 % (0-6); LYMPHOCYTES ABSOLUTE MAN 0.24 K/mm3 (0.84-5.20); LYMPHOCYTES PERCENT MAN 18 % (21-46); MONOCYTES ABSOLUTE MAN 0.46 K/mm3 (0.16-1.47); MONOCYTES PERCENT MAN 34 % (4-13); SEG NEUTROPHILS PERCENT MAN 38 % (41-73); TOTAL CELLS COUNTED 50
[2024-06-01 10:37] LABS: Albumin, Blood 2.3 g/dL (3.4-5.0); Albumin/Globulin Ratio 0.7 (0.8-1.8); Bilirubin, Total 1.2 mg/dL (0.1-1.0); Bun/Creatinine Ratio 38.1 (12.0-20.0); Creatinine, Blood 2.81 mg/dL (0.60-1.20); Globulin, Blood 3.3 g/dL (2.2-4.0); Potassium, Blood 4.7 mmol/L (3.5-5.5); Total Protein, Blood 5.6 g/dL (6.4-8.2)
[2024-06-03] MEDS ORDERED: NS 250 ML IV SCH (06:45)
[2024-06-03 07:58] VITALS: BP 141/79
[2024-06-03 08:15] VITALS: BP 115/59
[2024-06-03 09:04] LABS: CYCLOSPORINE A BY HPLC-MS/MS 127.6 ng/mL
[2024-06-03 09:36] VITALS: BP 111/51
[2024-06-03 09:53] VITALS: BP 123/56
== END 2024-06-03 11:24 | disposition home or self-care (01) ==
LOC: ATC 02:01
PROVIDERS: Internal Medicine Hematology & Oncology
DX: D61.3 Idiopathic aplastic anemia (principal); I48.0 Paroxysmal atrial fibrillation; I12.9 Hypertensive chronic kidney disease with stage 1 through stage 4 chronic kidney disease, or unspecified chronic kidney disease; E11.22 Type 2 diabetes mellitus with diabetic chronic kidney disease; N18.9 Chronic kidney disease, unspecified; G47.33 Obstructive sleep apnea (adult) (pediatric); Z87.891 Personal history of nicotine dependence; Z79.4 Long term (current) use of insulin; Z79.899 Other long term (current) drug therapy; Z90.49 Acquired absence of other specified parts of digestive tract
CPT/HCPCS: 36430; 36592; 80053; 80158; 85025; 86850; 86900; 86901; 86923; J7050; P9016

== ENCOUNTER 2024-06-08 04:01 | Day surgery (SDC) | payer OTHER ==
[2024-06-08 09:35] VITALS: BP 158/59
[2024-06-08 10:59] LABS: Hematocrit 24.8 % (37.0-53.0); Mean Corpuscular HGB 32.8 pg (26.0-34.0); Mean Corpuscular HGB Conc 32.3 g/dL (31.5-36.5); Mean Corpuscular Volume 102 fL (80-100); RDW Coefficient Variation 20.5 % (11.7-14.2); RDW Standard Deviation 75.4 fL (35.1-46.3); Red Blood Cell Count 2.44 M/mm3 (4.30-5.90)
[2024-06-08 11:22] LABS: Albumin, Blood 2.4 g/dL (3.4-5.0); Albumin/Globulin Ratio 0.8 (0.8-1.8); Bilirubin, Total 1.5 mg/dL (0.1-1.0); Bun/Creatinine Ratio 39.6 (12.0-20.0); Calcium, Blood 8.1 mg/dL (8.5-10.1); Creatinine, Blood 2.75 mg/dL (0.60-1.20); Globulin, Blood 3.2 g/dL (2.2-4.0); Potassium, Blood 4.2 mmol/L (3.5-5.5); Total Protein, Blood 5.6 g/dL (6.4-8.2)
[2024-06-08 11:40] LABS: Platelet Count 32 K/mm3 (150-400)
[2024-06-08 11:51] LABS: BAND PERCENT MAN 5 % (0-8); BASOPHILS ABSOLUTE MAN 0.01 K/mm3 (0.00-0.23); BASOPHILS PERCENT MAN 1 % (0-2); EOSINOPHILS ABSOLUTE MAN 0.05 K/mm3 (0.00-0.68); EOSINOPHILS PERCENT MAN 4 % (0-6); LYMPHOCYTES ABSOLUTE MAN 0.27 K/mm3 (0.84-5.20); LYMPHOCYTES PERCENT MAN 21 % (21-46); MONOCYTES ABSOLUTE MAN 0.28 K/mm3 (0.16-1.47); MONOCYTES PERCENT MAN 22 % (4-13); NEUTROPHILS ABSOLUTE MAN 0.67 K/mm3 (1.96-9.15); SEG NEUTROPHILS PERCENT MAN 47 % (41-73); TOTAL CELLS COUNTED 100
[2024-06-11 08:51] LABS: CYCLOSPORINE A BY HPLC-MS/MS 87.7 ng/mL
== END 2024-06-08 10:20 | disposition home or self-care (01) ==
LOC: ATC 04:01
PROVIDERS: Internal Medicine Hematology & Oncology
DX: D61.3 Idiopathic aplastic anemia (principal); I12.9 Hypertensive chronic kidney disease with stage 1 through stage 4 chronic kidney disease, or unspecified chronic kidney disease; E11.22 Type 2 diabetes mellitus with diabetic chronic kidney disease; N18.9 Chronic kidney disease, unspecified; E78.5 Hyperlipidemia, unspecified; I48.0 Paroxysmal atrial fibrillation; G47.33 Obstructive sleep apnea (adult) (pediatric); Z87.891 Personal history of nicotine dependence; Z79.4 Long term (current) use of insulin; Z79.899 Other long term (current) drug therapy
CPT/HCPCS: 36592; 80053; 85025

== ENCOUNTER 2024-06-14 04:02 | Day surgery (SDC) | payer OTHER ==
[2024-06-14 09:11] VITALS: BP 125/54
[2024-06-14 09:39] LABS: Hematocrit 23.2 % (37.0-53.0); Hemoglobin 7.3 g/dL (13.5-17.5); Mean Corpuscular HGB 32.2 pg (26.0-34.0); Mean Corpuscular HGB Conc 31.5 g/dL (31.5-36.5); Mean Corpuscular Volume 102 fL (80-100); NRBC ABSOLUTE 0.03 K/mm3 (0.00-0.02); NRBC Auto 1.9 /100 WBC (0.0-0.2); RDW Coefficient Variation 20.4 % (11.7-14.2); RDW Standard Deviation 75.1 fL (35.1-46.3); Red Blood Cell Count 2.27 M/mm3 (4.30-5.90); White Blood Cell Count 1.59 K/mm3 (4.00-11.30)
[2024-06-14 09:47] LABS: Platelet Count 37 K/mm3 (150-400)
[2024-06-14 10:07] LABS: Albumin, Blood 2.5 g/dL (3.4-5.0); Albumin/Globulin Ratio 0.7 (0.8-1.8); Bilirubin, Total 1.3 mg/dL (0.1-1.0); Bun/Creatinine Ratio 37.5 (12.0-20.0); Calcium, Blood 8.2 mg/dL (8.5-10.1); Creatinine, Blood 2.88 mg/dL (0.60-1.20); Globulin, Blood 3.5 g/dL (2.2-4.0); Potassium, Blood 4.2 mmol/L (3.5-5.5)
[2024-06-14 10:17] LABS: BAND PERCENT MAN 9 % (0-8); BASOPHILS PERCENT MAN 0 % (0-2); EOSINOPHILS PERCENT MAN 0 % (0-6); LYMPHOCYTES ABSOLUTE MAN 0.36 K/mm3 (0.84-5.20); LYMPHOCYTES PERCENT MAN 23 % (21-46); MONOCYTES ABSOLUTE MAN 0.39 K/mm3 (0.16-1.47); MONOCYTES PERCENT MAN 25 % (4-13); NEUTROPHILS ABSOLUTE MAN 0.82 K/mm3 (1.96-9.15); SEG NEUTROPHILS PERCENT MAN 43 % (41-73); TOTAL CELLS COUNTED 100
[2024-06-16 09:45] LABS: CYCLOSPORINE A BY HPLC-MS/MS 89.1 ng/mL
== END 2024-06-14 09:21 | disposition home or self-care (01) ==
LOC: ATC 04:02
PROVIDERS: Internal Medicine Hematology & Oncology
DX: D61.3 Idiopathic aplastic anemia (principal); I12.9 Hypertensive chronic kidney disease with stage 1 through stage 4 chronic kidney disease, or unspecified chronic kidney disease; E11.22 Type 2 diabetes mellitus with diabetic chronic kidney disease; N18.9 Chronic kidney disease, unspecified; E78.5 Hyperlipidemia, unspecified; I48.0 Paroxysmal atrial fibrillation; E66.9 Obesity, unspecified; Z68.38 Body mass index [BMI] 38.0-38.9, adult; Z87.891 Personal history of nicotine dependence; Z79.4 Long term (current) use of insulin; Z79.899 Other long term (current) drug therapy; Z90.49 Acquired absence of other specified parts of digestive tract
CPT/HCPCS: 36592; 80053; 80158; 85025

== ENCOUNTER 2024-06-24 05:41 | Day surgery (SDC) | payer OTHER ==
[2024-06-22 10:17] VITALS: BP 116/62
[2024-06-22 10:47] LABS: BASOPHILS ABSOLUTE AUTO 0.01 K/mm3 (0.00-0.23); BASOPHILS PERCENT AUTO 1 % (0-2); Hematocrit 21.1 % (37.0-53.0); Hemoglobin 6.8 g/dL (13.5-17.5); LYMPHOCYTES ABSOLUTE AUTO 0.37 K/mm3 (0.84-5.20); LYMPHOCYTES PERCENT AUTO 29 % (21-46); MONOCYTES ABSOLUTE AUTO 0.33 K/mm3 (0.16-1.47); MONOCYTES PERCENT AUTO 25 % (4-13); Mean Corpuscular HGB 32.7 pg (26.0-34.0); Mean Corpuscular HGB Conc 32.2 g/dL (31.5-36.5); Mean Corpuscular Volume 101 fL (80-100); NRBC ABSOLUTE 0.05 K/mm3 (0.00-0.02); NRBC Auto 3.8 /100 WBC (0.0-0.2); RDW Standard Deviation 76.6 fL (35.1-46.3); Red Blood Cell Count 2.08 M/mm3 (4.30-5.90)
[2024-06-22 11:01] LABS: EOSINOPHILS ABSOLUTE AUTO 0.03 K/mm3 (0.00-0.68); EOSINOPHILS PERCENT AUTO 2 % (0-6); IMMATURE GRAN ABSOLUTE AUTO 0.01 K/mm3 (0.00-0.10); IMMATURE GRAN PERCENT AUTO 1 % (0-1); NEUTROPHILS ABSOLUTE AUTO 0.55 K/mm3 (1.96-9.15); NEUTROPHILS PERCENT AUTO 42 % (41-73)
[2024-06-22 11:04] LABS: Platelet Count 38 K/mm3 (150-400)
[2024-06-22 11:20] LABS: Alanine Aminotransfer (ALT/SGP 10 U/L (12-78); Albumin, Blood 2.5 g/dL (3.4-5.0); Albumin/Globulin Ratio 0.7 (0.8-1.8); Alk Phos 68 U/L (50-136); Anion Gap 14 mmol/L (3-11); Aspartate Aminotrans (AST/SGOT <3 U/L (12-37); Bilirubin, Total 1.3 mg/dL (0.1-1.0); Blood Urea Nitrogen 104 mg/dL (8-24); Bun/Creatinine Ratio 33.8 (12.0-20.0); CO2, Blood 18 mmol/L (21-32); Calcium, Blood 8.6 mg/dL (8.5-10.1); Chloride, Blood 116 mmol/L (98-108); Creatinine, Blood 3.08 mg/dL (0.60-1.20); Globulin, Blood 3.5 g/dL (2.2-4.0); Glomerular Filtration Rate 21 (60-); Glucose, Blood 74 mg/dL (70-99); Potassium, Blood 4.1 mmol/L (3.5-5.5); Sodium, Blood 144 mmol/L (136-145)
[2024-06-24] MEDS ORDERED: NS 250 ML IV SCH (06:45)
[2024-06-24 09:25] LABS: CYCLOSPORINE A BY HPLC-MS/MS 103.1 ng/mL
--- NOTE | 2024-06-24 12:23 | NUR ---
Pt is currently in the ER and is poli going to be admitted to the hospital.
== END 2024-06-24 23:00 | disposition home or self-care (01) ==
LOC: ATC 05:41
PROVIDERS: Internal Medicine Hematology & Oncology
DX: D61.3 Idiopathic aplastic anemia (principal); E78.5 Hyperlipidemia, unspecified; I48.0 Paroxysmal atrial fibrillation; E11.22 Type 2 diabetes mellitus with diabetic chronic kidney disease; I12.9 Hypertensive chronic kidney disease with stage 1 through stage 4 chronic kidney disease, or unspecified chronic kidney disease; N18.9 Chronic kidney disease, unspecified; G47.33 Obstructive sleep apnea (adult) (pediatric); Z87.891 Personal history of nicotine dependence; Z79.899 Other long term (current) drug therapy
CPT/HCPCS: 36592; 80053; 80158; 85025; 86850; 86900; 86901; 86923

== ENCOUNTER 2024-06-24 07:14 | Inpatient (IN) | payer OTHER ==
[~2024-06-24] VITALS: Ht 182.9 cm; Wt 119.7 kg
[2024-06-24 07:58] LABS: Mean Corpuscular HGB 32.7 pg (26.0-34.0); Mean Corpuscular HGB Conc 31.8 g/dL (31.5-36.5); Mean Corpuscular Volume 103 fL (80-100); NRBC ABSOLUTE 0.05 K/mm3 (0.00-0.02); NRBC Auto 3.2 /100 WBC (0.0-0.2); RDW Coefficient Variation 21.6 % (11.7-14.2); RDW Standard Deviation 80.1 fL (35.1-46.3); Red Blood Cell Count 2.14 M/mm3 (4.30-5.90); White Blood Cell Count 1.58 K/mm3 (4.00-11.30)
[2024-06-24 08:08] LABS: Platelet Count 45 K/mm3 (150-400)
[2024-06-24 08:28] LABS: Albumin, Blood 2.3 g/dL (3.4-5.0); Albumin/Globulin Ratio 0.6 (0.8-1.8); Bilirubin, Total 1.4 mg/dL (0.1-1.0); Bun/Creatinine Ratio 31.6 (12.0-20.0); Calcium, Blood 8.3 mg/dL (8.5-10.1); Creatinine, Blood 3.2 mg/dL (0.60-1.20); Globulin, Blood 3.7 g/dL (2.2-4.0); Potassium, Blood 4.2 mmol/L (3.5-5.5)
[2024-06-24] MEDS ORDERED: Morphine Sulfate 4 MG/1 ML Injection IV ONE (08:45)
[2024-06-24 09:02] LABS: BAND PERCENT MAN 14 % (0-8); BASOPHILS ABSOLUTE MAN 0.09 K/mm3 (0.00-0.23); BASOPHILS PERCENT MAN 6 % (0-2); EOSINOPHILS ABSOLUTE MAN 0.12 K/mm3 (0.00-0.68); EOSINOPHILS PERCENT MAN 8 % (0-6); LYMPHOCYTES ABSOLUTE MAN 0.44 K/mm3 (0.84-5.20); LYMPHOCYTES PERCENT MAN 28 % (21-46); METAMYELOCYTE ABSOLUTE MAN 0.03 K/mm3 (0.00-0.00); METAMYELOCYTE PERCENT MAN 2 % (0-0); MONOCYTES ABSOLUTE MAN 0.15 K/mm3 (0.16-1.47); MONOCYTES PERCENT MAN 10 % (4-13); NEUTROPHILS ABSOLUTE MAN 0.72 K/mm3 (1.96-9.15); SEG NEUTROPHILS PERCENT MAN 32 % (41-73); TOTAL CELLS COUNTED 50
[2024-06-24 11:02] LABS: IMMATURE RETIC FRACTION 22.3 % (2.3-16.0); RETIC HGB EQUIVALENT 27.9 pg (28.20-36.60); RETICULOCYTE ABSOLUTE 0.0522 M/mm3 (0.0200-0.1100); RETICULOCYTE COUNT PERCENT 2.33 % (0.50-2.50)
[2024-06-24] MEDS ORDERED: CefTRIAXone Sodium 2,000 MG in NS 100 ML IV ONE (11:15)
[2024-06-24] MEDS ORDERED: Azithromycin 500 MG in NS 250 ML IV ONE (11:15)
[2024-06-24] MEDS ORDERED: HYDROmorphone HCl/Pf 1MG SYR IV ONE (11:20)
[2024-06-24] MEDS ORDERED: Furosemide 10 MG / ML 2ML Vial IV ONE (13:10)
[2024-06-24] MEDS ORDERED: FLU VACC TS2024-25(6MOS UP)/PF 45 MCG/0.5 ML SYRINGE IM SCH (13:10)
[2024-06-24 16:50] VITALS: BP 103/79
--- NOTE | 2024-06-24 16:50 | NUR ---
PT ARRIVES TO UNIT FROM ER. REPORT RECEIVED FROM SALES AND IN HOME DELIVERY SPECIALIST PRIOR TO ARRIVAL. A/OX4 AND ABLE TO PROVIDE MEDICAL HISTORY. OBEYS COMMANDS AND MAKES NEEDS KNOWN. ON 4L NC, SATTING ABOVE 90%, BP 100'S SYSTOLIC, HR IN 80'S. MALE PUREWICK IN PLACE AND DRAINING TO SUCTION. PT HAS BANDAGES IN PLACE ON HIS ABDOMEN, STATES THEY ARE UNHEALED SURGICAL WOUNDS FROM .
--- NOTE | 2024-06-24 18:16 | NUR ---
SHIFT SUMMARY NO ACUTE EVENTS THIS SHIFT
[2024-06-24 20:10] VITALS: BP 101/63
[2024-06-24] MEDS ORDERED: Lactobacil 2-S.Thermo-Bifido 1 1 Cap PO SCH (21:00)
[2024-06-24] MEDS ORDERED: Acetaminophen 325 MG TABLET PO PRN (21:05)
--- NOTE | 2024-06-24 21:05 | NUR ---
RN NOTE UPON INITIAL ASSESSMENT, PT APPEARED TO HAVE ST ELEVATION ON MONITOR. PT ENDORSING CHEST PAIN AND PROGRESSIVE SHORTNESS OF BREATH. SPO2 94%. SUPPLEMENTAL O2 OFFERED, PT REFUSED. PT IN AFIB ON TELE MONITOR. SEE VITALS FOR ADDITIONAL DETAILS. RN DISCUSSED THIS WITH DR. LOUISE. EKG WAS ORDERED. EKG UNCHANGED FROM PREVIOUS, SHOWING AFIB, LAFB. PLAN FOR LABS IN AM. PRN TYLENOL FOR PAIN ORDERED.
[2024-06-25] VITALS (17 sets, daily range): BP systolic 100–125; BP diastolic 48–88
[2024-06-25 04:12] LABS: Hematocrit 19.6 % (37.0-53.0); Hemoglobin 6.1 g/dL (13.5-17.5); Mean Corpuscular HGB 31.8 pg (26.0-34.0); Mean Corpuscular HGB Conc 31.1 g/dL (31.5-36.5); Mean Corpuscular Volume 102 fL (80-100); NRBC ABSOLUTE 0.04 K/mm3 (0.00-0.02); NRBC Auto 3.1 /100 WBC (0.0-0.2); RDW Standard Deviation 79.9 fL (35.1-46.3); Red Blood Cell Count 1.92 M/mm3 (4.30-5.90); White Blood Cell Count 1.29 K/mm3 (4.00-11.30)
[2024-06-25 04:32] LABS: Platelet Count 39 K/mm3 (150-400)
[2024-06-25 04:43] LABS: BAND PERCENT MAN 13 % (0-8); BASOPHILS PERCENT MAN 0 % (0-2); EOSINOPHILS PERCENT MAN 0 % (0-6); LYMPHOCYTES % ATYPICAL MANUAL 1 % (0-0); LYMPHOCYTES ABSOLUTE MAN 0.25 K/mm3 (0.84-5.20); LYMPHOCYTES PERCENT MAN 19 % (21-46); METAMYELOCYTE ABSOLUTE MAN 0.01 K/mm3 (0.00-0.00); METAMYELOCYTE PERCENT MAN 1 % (0-0); MONOCYTES ABSOLUTE MAN 0.28 K/mm3 (0.16-1.47); MONOCYTES PERCENT MAN 22 % (4-13); NEUTROPHILS ABSOLUTE MAN 0.73 K/mm3 (1.96-9.15); SEG NEUTROPHILS PERCENT MAN 44 % (41-73); TOTAL CELLS COUNTED 100
--- NOTE | 2024-06-25 04:44 | NUR ---
CRITICAL LAB PT HGB DROPPED FROM 7.0 [address]. PAZ. RN TO ADMINISTER 1 UNIT PRBC. NO S/S ACTIVE BLEEDING. PT HAS CHRONIC PANCYTOPENIC.
[2024-06-25 04:45] LABS: Bun/Creatinine Ratio 30.3 (12.0-20.0); Calcium, Blood 8.1 mg/dL (8.5-10.1); Creatinine, Blood 3.47 mg/dL (0.60-1.20); Potassium, Blood 4.5 mmol/L (3.5-5.5)
[2024-06-25] MEDS ORDERED: Furosemide 10 MG/ML 4ML Vial IV ONE (07:30)
[2024-06-25] MEDS ORDERED: NS 500 ML IV ONE (08:20)
[2024-06-25] MEDS ORDERED: N-Acetylcysteine 600 MG CAP PO SCH (09:00)
[2024-06-25] MEDS ORDERED: Azithromycin 500 MG in NS 250 ML IV SCH (09:00)
[2024-06-25] MEDS ORDERED: Sodium Bicarbonate 650 MG Tab PO SCH (09:00)
[2024-06-25] MEDS ORDERED: NS 500 ML IV SCH (09:55)
[2024-06-25] MEDS ORDERED: Darbepoetin Alfa in Polysorbat 25 MCG/0.42 ML Syringe SC ONE (12:00)
[2024-06-25] MEDS ORDERED: CefTRIAXone Sodium 1,000 MG in NS 100 ML IV SCH (12:00)
--- NOTE | 2024-06-25 15:58 | NUR ---
WOUND DRESSING CHANGED PER PT REQUEST AFTER NOTIFYING MD. PHOTOS IN CHART.
--- NOTE | 2024-06-25 17:46 | NUR ---
SHIFT SUMMARY PT A/OX4 AND COOPERATIVE OF MOST CARE, REQUESTED SOME MEDS TO BE HELD UNTIL DR SOLER IS CONTACTED. PT ABLE TO EXPRESS NEEDS AND CALLED APPROPIATE. PT UP TO RECLINER AND BSC MULTIPLE TIMES DURING SHIFT, SBA FWW, TOLERATED WELL. VSS THROUGHOUT SHIFT WITH O2 SATS IN THE 90'S ON RA. NO REPORT OF CHEST PAIN/PRESSURE THROUGHOUT SHIFT. NO REPORT OF SOB/DYSPNEA THROUGHOUT SHIFT. PT RECIEVED 2 UNITS PRBC'S PER ORDER. MD NOTIFIED THAT PICC LINE IS REPORTED TO HAVE BEEN PLACED FOR AN EXTENDED AMOUNT OF TIME AND THAT THERE WERE NO PICC NURSES ON FOR THIS SHIFT, PLAN TO HAVE PICC RN ASSESS AND POSSIBLY CHANGE TOMORROW. WOUND DRESSING ORDER PLACED AND DRESSING CHANGED ON SAMREEN ABD, PHOTOS IN CHART.24 HR URINE COLLECTION STARTED AT 0930, PUREWICK CANISTER ON ICE AND COLLECTION JUG ON ICE.
--- NOTE | 2024-06-25 20:18 | NUR ---
START OF SHIFT THIS RN ASSUMED CARE AT APPROXIMATELY 1900. PT RESTING COMFORTABLY IN BED AND DENIES ANY PAIN OR DISCOMFORT. PT ON RA AFIB WITH RATE IN THE 70-80S. NO FURTHER COMPLAINTS AT THIS TIME, WILL CONTINUE PLAN OF CARE.
[2024-06-25] MEDS ORDERED: Insulin Glargine-Yfgn 100 Unit/mL 3 ML SYR SC SCH (21:00)
[2024-06-26] VITALS (14 sets, daily range): BP systolic 101–132; BP diastolic 52–76
[2024-06-26 04:45] LABS: Hematocrit 18.7 % (37.0-53.0); Mean Corpuscular HGB 31.7 pg (26.0-34.0); Mean Corpuscular HGB Conc 32.1 g/dL (31.5-36.5); Mean Corpuscular Volume 99 fL (80-100); NRBC ABSOLUTE 0.03 K/mm3 (0.00-0.02); NRBC Auto 2.8 /100 WBC (0.0-0.2); RDW Coefficient Variation 21.8 % (11.7-14.2); RDW Standard Deviation 76.5 fL (35.1-46.3); Red Blood Cell Count 1.89 M/mm3 (4.30-5.90); White Blood Cell Count 1.08 K/mm3 (4.00-11.30)
[2024-06-26 04:51] LABS: Platelet Count 38 K/mm3 (150-400)
--- NOTE | 2024-06-26 04:51 | NUR ---
SHIFT SUMMARY NO NEW ACUTE EVENTS OVER NIGHT. PT PLACED ON 1L NC WHILE SLEEPING FOR SATS DROPPING TO 87%. WILL CONTINUE PLAN OF CARE.
[2024-06-26 05:05] LABS: Anion Gap 14 mmol/L (3-11); Blood Urea Nitrogen 109 mg/dL (8-24); Bun/Creatinine Ratio 30.4 (12.0-20.0); CO2, Blood 18 mmol/L (21-32); Calcium, Blood 8.3 mg/dL (8.5-10.1); Chloride, Blood 111 mmol/L (98-108); Creatinine, Blood 3.58 mg/dL (0.60-1.20); Glomerular Filtration Rate 17 (60-); Glucose, Blood 96 mg/dL (70-99); Magnesium, Blood 1.4 mg/dL (1.6-2.4); Potassium, Blood 4.7 mmol/L (3.5-5.5); Sodium, Blood 138 mmol/L (136-145); Uric Acid, Blood 7.8 mg/dL (3.5-7.2)
[2024-06-26 06:13] LABS: BAND PERCENT MAN 10 % (0-8); BASOPHILS PERCENT MAN 0 % (0-2); EOSINOPHILS ABSOLUTE MAN 0.04 K/mm3 (0.00-0.68); EOSINOPHILS PERCENT MAN 4 % (0-6); LYMPHOCYTES % ATYPICAL MANUAL 4 % (0-0); LYMPHOCYTES PERCENT MAN 24 % (21-46); MONOCYTES ABSOLUTE MAN 0.32 K/mm3 (0.16-1.47); MONOCYTES PERCENT MAN 30 % (4-13); MYELOCYTE ABSOLUTE MAN 0.04 K/mm3 (0.00-0.00); MYELOCYTE PERCENT MAN 4 % (0-0); NEUTROPHILS ABSOLUTE MAN 0.36 K/mm3 (1.96-9.15); SEG NEUTROPHILS PERCENT MAN 24 % (41-73); TOTAL CELLS COUNTED 50
[2024-06-26] MEDS ORDERED: Cyanocobalamin 500 MCG Tab PO SCH (09:00)
[2024-06-26] MEDS ORDERED: Cholecalciferol 1000 Unit Tablet (=25MCG) PO SCH (09:00)
[2024-06-26] MEDS ORDERED: PROMACTA PO SCH (09:00)
[2024-06-26] MEDS ORDERED: Allopurinol 100 MG Tab PO SCH (09:00)
[2024-06-26] MEDS ORDERED: Metoprolol Succinate 25 MG TABCR PO SCH (09:00)
--- NOTE | 2024-06-26 12:21 | NUR ---
PALLIATIVE SUPPORTIVE VISIT: A/O X4. FRIENDLY AND TALKATIVE. THERAPUTIC LISTENING PROVIDED. KARISSA IS ABLE TO RECALL HIS HISTORICAL HGB LEVELS. KARISSA REPORTS NOT TAKING CYCLOSPORINE AND PROMACTA SINCE THURSDAY EVENING. PT HAS A WEEKLY STANDING [facility]PT [facility] H/H LAB DRAW WITH POSSIBLE PRBC TRANSFUSIONS (IF HGB IS LESS THAN 7). PT WAS RECEIVING BLOOD PRODUCTS WEEKLY UNTIL HE STARTED CYCLOSPORINE AND PROMACTA. AFTER STARTING RX'S HIS HGB LEVEL HAS BEEN 7 OR HIGHER ALLOWING HIM TO BE ABLE TO SKIP TRANSFUSIONS EVERY OTHER WEEK. PT EXPRESSES FRUSTRATION WITH RLQ INFECTION AT PREVIOUS HERNIA REPAIR SIGHT WITH MESH. HE HAS NOT BEEN ABLE TO HAVE EXPLORITORY SURGERY TO FIND THE SOURCE OF INFECTION D/T HIS MEDICALLY FRAGILE STATE. PLAN: THIS PC RN WILL FOLLOW UP WITH PT TOMORROW 06/27/[address] COSTELLO SEES PT. PRIMARY RN UPDATED.
[2024-06-26] MEDS ORDERED: Mag Sulfate 1 GM/D5% 100ML 100 ML IV STA (12:50)
[2024-06-26] MEDS ORDERED: FILGRASTIM-AYOW 480 MCG/0.8 ML 0.8MLSYR SC SCH (15:00)
[2024-06-26] MEDS ORDERED: Furosemide 10 MG/ML 4ML Vial IV SCH (18:00)
--- NOTE | 2024-06-26 18:44 | NUR ---
SHIFT SUMMARY A&OX4, OBEYS COMMANDS, ABLE TO MAKE NEEDS KNOWN, CALLS APPROPATELY, PT ABLE TO WALK TO THE BSC SBA WITH FWW. CONTINUOUS SPO2, SPO2 GREATER THAN 90% ON RA. CONTINUOUS TELE MONITORING, HR IRREGULAR 80 S, RHYTHM AFIB, MURMUR PRESENT, BLE EDEMA, BP STABLE WITH MAP GREATER THAN 65. DENIES NAUSEA, MULTIPLE BM THIS SHIFT. PT VOIDING INTO BSC DURING BM. PT HAS SURGICAL WOUND TO RIGHT SIDE THAT IS DRESSED PER ORDERS, DRESSING C/D/I, SEE PHOTOS IN CHART. PICC LINE DISCUSSED WITH ICU CHARGE NURSE TODAY 06/26, SITE IS [facility] AND DOES NOT NEED REPLACED AT THIS TIME. PT FINISHED RECEIVING 1 UNIT OF PRBC S THIS AM. DR. MA ROUNED ON PT THIS AM, NEW ORDERS PLACED DR. MA ROUNDED ON PT THIS AM, PLAN OF CARE UPDATED, CONSULT MADE FOR PALATIVE CARE TO DISCUSS GOALS OF CARE WITH PT. DR. OCHOA ROUNDED ON PT TODAY, NEW ORDERS. DR. COSTELLO ROUNDED ON PT THIS AFTERNOON, NEW ORDERS PLACED. 1 UNIT PRBC S STARTED THIS AFTERNOON.
[2024-06-26 21:01] LABS: Hematocrit 23.7 % (37.0-53.0); Hemoglobin 7.8 g/dL (13.5-17.5)
[2024-06-26 22:33] LABS: Source, Urine Voided
[2024-06-26 22:41] LABS: Bilirubin, Urine Neg (Neg); Blood, Urine 5+ (Neg); Glucose Qualitative, Urine Neg (Neg); Ketones, Urine Neg (Neg); Leukocyte Esterase, Urine 1+ (Neg); Nitrite, Urine Neg (Neg); Protein, Urine 2+ (Neg); Specific Gravity, Urine 1.015 (1.003-1.022); Urobilinogen, Urine NORM (Normal)
[2024-06-26 22:54] LABS: Amorphous Light (0-Heavy); Appearance, Urine Clear (Clear); Bacteria Few /hpf; Color, Urine Yellow (P-Yellow); Squamous Epithelial Cells Few /hpf (Few); Transitional Epithelial Cells Few /hpf (0-Rare); White Blood Cells, Urine 0-2 /hpf (0-5)
[2024-06-27 03:38] VITALS: BP 116/76
[2024-06-27 04:03] LABS: Hematocrit 23.1 % (37.0-53.0); Hemoglobin 7.6 g/dL (13.5-17.5); Mean Corpuscular HGB 31.7 pg (26.0-34.0); Mean Corpuscular HGB Conc 32.9 g/dL (31.5-36.5); Mean Corpuscular Volume 96 fL (80-100); NRBC ABSOLUTE 0.05 K/mm3 (0.00-0.02); NRBC Auto 2.9 /100 WBC (0.0-0.2); RDW Coefficient Variation 20.4 % (11.7-14.2); RDW Standard Deviation 69.7 fL (35.1-46.3); White Blood Cell Count 1.73 K/mm3 (4.00-11.30)
[2024-06-27 04:15] LABS: Platelet Count 34 K/mm3 (150-400)
[2024-06-27 04:19] LABS: Anion Gap 14 mmol/L (3-11); Blood Urea Nitrogen 115 mg/dL (8-24); Bun/Creatinine Ratio 29.6 (12.0-20.0); CO2, Blood 17 mmol/L (21-32); Calcium, Blood 8.4 mg/dL (8.5-10.1); Chloride, Blood 110 mmol/L (98-108); Creatinine, Blood 3.88 mg/dL (0.60-1.20); Glomerular Filtration Rate 16 (60-); Glucose, Blood 78 mg/dL (70-99); Phosphorus, Blood 6.1 mg/dL (2.5-4.9); Potassium, Blood 5.1 mmol/L (3.5-5.5); Sodium, Blood 136 mmol/L (136-145); Uric Acid, Blood 7.9 mg/dL (3.5-7.2)
[2024-06-27 04:57] LABS: BAND PERCENT MAN 20 % (0-8); BASOPHILS PERCENT MAN 0 % (0-2); EOSINOPHILS ABSOLUTE MAN 0.01 K/mm3 (0.00-0.68); EOSINOPHILS PERCENT MAN 1 % (0-6); LYMPHOCYTES ABSOLUTE MAN 0.31 K/mm3 (0.84-5.20); LYMPHOCYTES PERCENT MAN 18 % (21-46); MONOCYTES ABSOLUTE MAN 0.39 K/mm3 (0.16-1.47); MONOCYTES PERCENT MAN 23 % (4-13); MYELOCYTE ABSOLUTE MAN 0.03 K/mm3 (0.00-0.00); MYELOCYTE PERCENT MAN 2 % (0-0); NEUTROPHILS ABSOLUTE MAN 0.96 K/mm3 (1.96-9.15); SEG NEUTROPHILS PERCENT MAN 36 % (41-73); TOTAL CELLS COUNTED 100
--- NOTE | 2024-06-27 05:35 | NUR ---
SHIFT SUMMARY PATIENT ALERT AND ORIENTED X4. HAD NO COMPLAINTS OF PAIN OR SHORTNESS OF BREATH. PATIENT IS ON ROOM AIR WITH SPO2 >90%. VITAL SIGNS STABLE. NO ACUTE ISSUES NOTED OVERNIGHT. WILL CONTINUE TO MONITOR. CALL LIGHT WITHIN REACH.
[2024-06-27 07:26] VITALS: BP 117/83
[2024-06-27 08:13] VITALS: BP 115/65
[2024-06-27 11:43] VITALS: BP 121/65
[2024-06-27 12:33] LABS: Stool Occult Blood Guaiac 1 Pos (Neg)
[2024-06-27 14:59] VITALS: BP 105/62
[2024-06-27] MEDS ORDERED: Melatonin 5 MG Tablet PO PRN (15:45)
--- NOTE | 2024-06-27 18:30 | NUR ---
SHIFT SUMMARY A&OX4, OBEYS COMMANDS, ABLE TO MAKE NEEDS KNOWN, CALLS APPROPATELY, PT ABLE TO WALK TO THE BSC SBA WITH FWW. CONTINUOUS SPO2, SPO2 GREATER THAN 90% ON RA, PT REPORTS HE CAN BREATH BETTER WHILE LYING DOWN. CONTINUOUS TELE MONITORING, HR IRREGULAR 60-80 S, RHYTHM AFIB, MURMUR PRESENT, BLE EDEMA, BP STABLE WITH MAP GREATER THAN 65. DENIES NAUSEA, MULTIPLE BM THIS SHIFT. PT VOIDING INTO BSC DURING BM. PT HAS OLD SURGICAL WOUND TO RIGHT SIDE THAT WAS REDRESSED PER ORDERS THIS SHIFT, DRESSING C/D/I, SEE PHOTOS IN CHART. PT REPORTING SOME LEFT SHOULDER PAIN THAT HE STATES HE HAS BEEN DEALING WITH FOR A WHILE WELL SOME CHRONIC KNEE PAIN RATING IT 5/10, MEDICATED PER ORDERS. DR. MA ROUNDED ON PT THIS AM, PLAN OF CARE UPDATED. DR. SOLER ROUNDED ON PT THIS AFTERNOON.
[2024-06-27 20:41] VITALS: BP 99/60
[2024-06-28 04:10] VITALS: BP 97/20
[2024-06-28 04:37] LABS: Hemoglobin 7.1 g/dL (13.5-17.5); Mean Corpuscular HGB 31.8 pg (26.0-34.0); Mean Corpuscular HGB Conc 32.3 g/dL (31.5-36.5); Mean Corpuscular Volume 99 fL (80-100); NRBC ABSOLUTE 0.03 K/mm3 (0.00-0.02); RDW Standard Deviation 71.9 fL (35.1-46.3); Red Blood Cell Count 2.23 M/mm3 (4.30-5.90); White Blood Cell Count 1.47 K/mm3 (4.00-11.30)
[2024-06-28 04:51] LABS: Platelet Count 29 K/mm3 (150-400)
[2024-06-28 04:57] LABS: Anion Gap 13 mmol/L (3-11); Blood Urea Nitrogen 116 mg/dL (8-24); Bun/Creatinine Ratio 28.5 (12.0-20.0); CO2, Blood 18 mmol/L (21-32); Calcium, Blood 8.2 mg/dL (8.5-10.1); Chloride, Blood 110 mmol/L (98-108); Creatinine, Blood 4.07 mg/dL (0.60-1.20); Glomerular Filtration Rate 15 (60-); Glucose, Blood 95 mg/dL (70-99); Phosphorus, Blood 6.6 mg/dL (2.5-4.9); Potassium, Blood 5.4 mmol/L (3.5-5.5); Sodium, Blood 136 mmol/L (136-145)
[2024-06-28 05:39] LABS: BAND PERCENT MAN 19 % (0-8); BASOPHILS ABSOLUTE MAN 0.02 K/mm3 (0.00-0.23); BASOPHILS PERCENT MAN 2 % (0-2); EOSINOPHILS ABSOLUTE MAN 0.05 K/mm3 (0.00-0.68); EOSINOPHILS PERCENT MAN 4 % (0-6); LYMPHOCYTES ABSOLUTE MAN 0.47 K/mm3 (0.84-5.20); LYMPHOCYTES PERCENT MAN 32 % (21-46); MONOCYTES PERCENT MAN 14 % (4-13); SEG NEUTROPHILS PERCENT MAN 29 % (41-73); TOTAL CELLS COUNTED 100
--- NOTE | 2024-06-28 06:14 | NUR ---
SHIFT SUMMARY PATIENT ALERT AND ORIENTED X4. HAD NO COMPLAINTS OF PAIN OR SHORTNESS OF BREATH. ON ROOM AIR WITH SPO2 >90%. VITAL SIGNS STABLE. NO ACUTE ISSUES NOTED OVERNIGHT. WILL CONTINUE TO MONITOR. CALL LIGHT WITHIN REACH.
[2024-06-28 07:16] VITALS: BP 111/86
[2024-06-28 08:19] LABS: HEPATITIS B SURFACE ANTIBODY <3.10 IU/L; HEPATITIS B SURFACE ANTIGEN Negative (Negative); HEPATITIS BE ANTIBODY Negative (Negative); HEPATITIS BE ANTIGEN Negative (Negative)
[2024-06-28 11:21] LABS: HBV CORE ANTIBODIES,TOTAL Negative (Negative)
[2024-06-28 14:11] LABS: GBM, IGG MULTIPLEX BEAD ASSAY 0 AU/mL (0-19); MYELOPEROXIDASE (MPO) AB,IGG 0 AU/mL (0-19); SERINE PROTEINASE 3 PR3 AB,IGG 0 AU/mL (0-19)
[2024-06-28 15:15] VITALS: BP 115/73
[2024-06-28 15:40] LABS: ANTINUCLEAR AB (ANA),HEP-2,IGG <1:80 (<1:80)
--- NOTE | 2024-06-28 18:27 | NUR ---
SHIFT SUMMARY; ASSUMED CARE AT 0700. A/A/OX4. PLEASANT AND COOPERATIVE WITH CARE. MOVES SELF WITH MINIMAL ASSIST TO CHAIR AND COMMODE. SULTANA PLACED TODAY PER TELEPHONE ORDER FROM DR. SOLER FOR STRICT I & O'S AND RETENTION. DRESSING TO CHRONIC ABD WOUND CHANGED TODAY, BED BATH COMPLETED BY PT WITH GOWN CHANGE. VSS, L/S CLEAR AND DENIES SOB, WILL CONTINUE TO MONITOR AND TREAT UNTIL CHANGE OF SHIFT.
[2024-06-28 20:46] VITALS: BP 115/65
[2024-06-29 00:17] LABS: HAPTOGLOBIN 236 mg/dL (30-200)
[2024-06-29 03:58] VITALS: BP 116/69
[2024-06-29 04:18] LABS: Hematocrit 23.3 % (37.0-53.0); Hemoglobin 7.5 g/dL (13.5-17.5); Mean Corpuscular HGB 31.8 pg (26.0-34.0); Mean Corpuscular HGB Conc 32.2 g/dL (31.5-36.5); Mean Corpuscular Volume 99 fL (80-100); NRBC ABSOLUTE 0.04 K/mm3 (0.00-0.02); NRBC Auto 2.2 /100 WBC (0.0-0.2); RDW Coefficient Variation 19.8 % (11.7-14.2); RDW Standard Deviation 70.1 fL (35.1-46.3); Red Blood Cell Count 2.36 M/mm3 (4.30-5.90); White Blood Cell Count 1.79 K/mm3 (4.00-11.30)
[2024-06-29 04:48] LABS: Platelet Count 32 K/mm3 (150-400)
[2024-06-29 05:08] LABS: Bun/Creatinine Ratio 30.5 (12.0-20.0); Calcium, Blood 8.3 mg/dL (8.5-10.1); Creatinine, Blood 3.97 mg/dL (0.60-1.20); Potassium, Blood 5.4 mmol/L (3.5-5.5)
[2024-06-29] MEDS ORDERED: ELTROMBOPAG 75 MG PO SCH (06:00)
[2024-06-29 06:04] LABS: BAND PERCENT MAN 21 % (0-8); BASOPHILS ABSOLUTE MAN 0.03 K/mm3 (0.00-0.23); BASOPHILS PERCENT MAN 2 % (0-2); EOSINOPHILS PERCENT MAN 0 % (0-6); LYMPHOCYTES % ATYPICAL MANUAL 1 % (0-0); LYMPHOCYTES ABSOLUTE MAN 0.57 K/mm3 (0.84-5.20); LYMPHOCYTES PERCENT MAN 31 % (21-46); METAMYELOCYTE ABSOLUTE MAN 0.01 K/mm3 (0.00-0.00); METAMYELOCYTE PERCENT MAN 1 % (0-0); MONOCYTES ABSOLUTE MAN 0.23 K/mm3 (0.16-1.47); MONOCYTES PERCENT MAN 13 % (4-13); MYELOCYTE ABSOLUTE MAN 0.01 K/mm3 (0.00-0.00); MYELOCYTE PERCENT MAN 1 % (0-0); NEUTROPHILS ABSOLUTE MAN 0.91 K/mm3 (1.96-9.15); SEG NEUTROPHILS PERCENT MAN 30 % (41-73); TOTAL CELLS COUNTED 100
--- NOTE | 2024-06-29 06:08 | NUR ---
SHIFT SUMMARY PATIENT ALERT AND ORIENTED X4. HAD NO COMPLAINTS OF PAIN. WAS NOTED TO BE SHORT OF BREATH THIS MORNING, SPO2 >90% ON ROOM AIR. VITAL SIGNS STABLE. NO ACUTE ISSES NOTED OVERNIGHT. WILL CONTINUE TO MONITOR. CALL LIGHT WITHIN REACH.
[2024-06-29 07:36] VITALS: BP 112/77
[2024-06-29 14:07] VITALS: BP 114/72
[2024-06-29] MEDS ORDERED: Insulin Regular 100 UNIT/ML 10ML Vial SC SCH (16:30)
--- NOTE | 2024-06-29 18:04 | NUR ---
PT TRANSFERRED FROM PCU THIS AFTERNOON. PT ALERT AND ORIENTED, VSS, RA, LUNGS CLEAR. SULTANA IN PLACE DRAINING DARK YELLOW URINE. PT ORIENTED TO NEW ROOM, CALLS APPROPRIATELY. DID NOT COMPLAIN OF PAIN. DRESSING ON LOWER RT ABD CHANGED PER ORDER, PT TOLERATED WELL. PT SBA TO BATHROOM WITH HOME WALKER FOR BM X1. CALL LIGHT IN REACH, BED IN LOWEST POSITION.
[2024-06-29 19:59] VITALS: BP 123/64
[2024-06-29] MEDS ORDERED: LORazepam 0.5 MG Tab PO ONE (20:20)
[2024-06-30 03:04] VITALS: BP 123/80
--- NOTE | 2024-06-30 04:40 | NUR ---
SHIFT SUMMARY. PATIENT REPORTS INSOMNIA SINCE BEING ADMITTED TO THE HOSPITAL AND FEELING ANXIOUS-DOCTOR ORDERED FOR A ONE TIME DOSE OF [place] 0.25MG WITH REPORTS OF BEING ABLE TO SLEEP-SEE ORDERS. PICC LINE DRESSING CHANGED. SOB NOTED WITH EXERTION-PATIENT REPORTS DIFFICULTY BREATHING WHEN LAYING FLAT-SATTING >92% ON RA. TELE ON WITH LEADS IN PLACE-NO EVENTS NOTED. PATIENT CALLS APPROPRIATELY AND IS ABLE TO MAKE HIS NEEDS KNOWN. CHG BATH COMPLETED TO PICC LINE. BED IS LOCKED IN THE LOWEST POSITION WITH CALL LIGHT IN REACH. CARE IS ONGOING.
[2024-06-30 05:53] LABS: Hematocrit 22.3 % (37.0-53.0); Hemoglobin 7.2 g/dL (13.5-17.5); Mean Corpuscular HGB 32.3 pg (26.0-34.0); Mean Corpuscular HGB Conc 32.3 g/dL (31.5-36.5); Mean Corpuscular Volume 100 fL (80-100); NRBC ABSOLUTE 0.03 K/mm3 (0.00-0.02); NRBC Auto 1.8 /100 WBC (0.0-0.2); RDW Coefficient Variation 19.5 % (11.7-14.2); RDW Standard Deviation 71.3 fL (35.1-46.3); Red Blood Cell Count 2.23 M/mm3 (4.30-5.90); White Blood Cell Count 1.66 K/mm3 (4.00-11.30)
[2024-06-30 06:00] LABS: Platelet Count 30 K/mm3 (150-400)
[2024-06-30 06:09] LABS: Bun/Creatinine Ratio 30.4 (12.0-20.0); Calcium, Blood 8.3 mg/dL (8.5-10.1); Creatinine, Blood 4.18 mg/dL (0.60-1.20); Potassium, Blood 5.5 mmol/L (3.5-5.5)
[2024-06-30 06:29] LABS: BASOPHILS ABSOLUTE MAN 0.03 K/mm3 (0.00-0.23); BASOPHILS PERCENT MAN 2 % (0-2); EOSINOPHILS PERCENT MAN 0 % (0-6); LYMPHOCYTES ABSOLUTE MAN 0.56 K/mm3 (0.84-5.20); LYMPHOCYTES PERCENT MAN 34 % (21-46); MONOCYTES ABSOLUTE MAN 0.29 K/mm3 (0.16-1.47); MONOCYTES PERCENT MAN 18 % (4-13); NEUTROPHILS ABSOLUTE MAN 0.76 K/mm3 (1.96-9.15); SEG NEUTROPHILS PERCENT MAN 46 % (41-73); TOTAL CELLS COUNTED 50
[2024-06-30 07:26] VITALS: BP 109/72
--- NOTE | 2024-06-30 08:40 | NUR ---
AM ASSESSMENT: Pt sitting up in the chair, just finished breakfast. LS diminished in bases. HR irregular with murmur noted. BT positive. Wound to RLQ with dressing intact. Pt states that it is a chronic wound. Pulses palp. Kellogg cath draining bloody urine. Pt c/o some intermitant bladder pain. Pt very pale/smiley appearing. Call light in reach. Will continue to monitor.
--- NOTE | 2024-06-30 13:12 | NUR ---
ABD WOUND CLEANED AND CHANGED WOUND USEING WOUND FOOD PREPARER, APPLIED 4X4 GAUZE COVERED WITH EXUDRY AND SECURED WITH MEFLEX TAPE. WOUND WAS ODOROUS WITH SOME DARK DRAINAGE
--- NOTE | 2024-06-30 14:00 | NUR ---
ASSUMED CARE OF PATIENT; SITTING UP IN BED, WATCHING TV. LUNCH COMPLETED. NO ACUTE NEEDS. CALL LIGHT IN REACH.
[2024-06-30 15:18] VITALS: BP 113/60
--- NOTE | 2024-06-30 19:45 | NUR ---
END OF SHIFT SUMMARY: A&Ox4. PLEASANT AND COOPERATIVE WITH CARE. CALLS APPROPRIATELY AND IS ABLE TO ADVOCATE NEEDS EFFECTIVELY. SULTANA FOR STRICT I/Os PER DR SOLER ORDER. CONTINENT OF BOWEL. LBM TODAY. AMBULATES 1PA c MEDS WHOLE WITH FLUIDS. ANTICIPATE DC TOMORROW. BED IN LOWEST POSITION, CALL LIGHT WITHIN REACH, ALL NEEDS MET. REPORT TO ONCOMING NURSE.
[2024-06-30 19:52] VITALS: BP 120/76
[2024-07-01 03:07] VITALS: BP 102/71
--- NOTE | 2024-07-01 04:01 | NUR ---
SHIFT SUMMARY. NO ACUTE EVENTS OVERNIGHT. PATIENT IS ANXIOUS TO GO HOME. PATIENT CONTINUES TO HAVE INSOMNIA WITH NO IMPROVEMENTS WITH MELATONIN. PATIENT IS PLEASANT AND COOPERATIVE WITH CARE. PATIENT CALLS APPROPRIATELY. PATIENT AMBULATING INDEPENDENTLY IN ROOM WITH WALKER-PATIENT WILL CALL IF HE NEEDS HELP GETTING INTO BED. VSS. CHG BATH DONE TO LEFT UPPER ARM PICC LINE. BED IS LOCKED IN THE LOWEST POSITION WITH CALL LIGHT IN REACH. CARE IS ONGOING.
[2024-07-01 05:21] LABS: Hematocrit 22.9 % (37.0-53.0); Hemoglobin 7.3 g/dL (13.5-17.5); Mean Corpuscular HGB Conc 31.9 g/dL (31.5-36.5); Mean Corpuscular Volume 100 fL (80-100); NRBC ABSOLUTE 0.05 K/mm3 (0.00-0.02); NRBC Auto 3.1 /100 WBC (0.0-0.2); RDW Coefficient Variation 19.5 % (11.7-14.2); Red Blood Cell Count 2.28 M/mm3 (4.30-5.90); White Blood Cell Count 1.61 K/mm3 (4.00-11.30)
[2024-07-01 05:28] LABS: Platelet Count 31 K/mm3 (150-400)
[2024-07-01 05:43] LABS: Albumin, Blood 2.2 g/dL (3.4-5.0); Anion Gap 16 mmol/L (3-11); Blood Urea Nitrogen 132 mg/dL (8-24); Bun/Creatinine Ratio 29.7 (12.0-20.0); CO2, Blood 16 mmol/L (21-32); Calcium, Blood 8.9 mg/dL (8.5-10.1); Chloride, Blood 113 mmol/L (98-108); Creatinine, Blood 4.45 mg/dL (0.60-1.20); Glomerular Filtration Rate 13 (60-); Glucose, Blood 120 mg/dL (70-99); Phosphorus, Blood 7.2 mg/dL (2.5-4.9); Potassium, Blood 5.5 mmol/L (3.5-5.5); Sodium, Blood 139 mmol/L (136-145)
[2024-07-01 06:03] LABS: BAND PERCENT MAN 6 % (0-8); BASOPHILS ABSOLUTE MAN 0.06 K/mm3 (0.00-0.23); BASOPHILS PERCENT MAN 4 % (0-2); EOSINOPHILS ABSOLUTE MAN 0.06 K/mm3 (0.00-0.68); EOSINOPHILS PERCENT MAN 4 % (0-6); LYMPHOCYTES ABSOLUTE MAN 0.41 K/mm3 (0.84-5.20); LYMPHOCYTES PERCENT MAN 26 % (21-46); MONOCYTES ABSOLUTE MAN 0.19 K/mm3 (0.16-1.47); MONOCYTES PERCENT MAN 12 % (4-13); NEUTROPHILS ABSOLUTE MAN 0.86 K/mm3 (1.96-9.15); SEG NEUTROPHILS PERCENT MAN 48 % (41-73); TOTAL CELLS COUNTED 50
[2024-07-01 07:18] VITALS: BP 115/72
[2024-07-01] MEDS ORDERED: Furosemide 10 MG/ML 4ML Vial IV SCH (09:00)
[2024-07-01] MEDS ORDERED: Sodium Zirconium Cyclosilicate 10 GM Packet PO SCH (09:00)
[2024-07-01 15:20] VITALS: BP 117/74
--- NOTE | 2024-07-01 16:20 | NUR ---
CALLED DR DE LA VEGA PT STATEMENT CANNOT SLEEP. SHE TO MAKE ORDERS
--- NOTE | 2024-07-01 16:57 | NUR ---
SPOKE TO DR MA RE PT DISCOMFORT WITH TELE. AND ANX AT NITE. ORDERS FOR D/C TELE AND TRAZADONE 50 MG PO BEDTIME
--- NOTE | 2024-07-01 18:18 | NUR ---
PT PLEASNT TODAY. DID C/O HIGH ANX AT BEDTIME, STATES CANNOT SLEEP. WANTS TO GO HOME. SPOKE TO DR MA. ORDERS GIVEN FOR BRITTNEY AANX MEDS. ALSO D/C TELE, WHICH WAS BOTHERSOME FOR HIM. CHANGED ABD PAD ON WOUND. IN TO SEE TODAY. NO OTHER CONCERNS NOTED TODAY. BED IN LOW POSITIOON, CALL LITE IN REACH, CALLS APPROP
[2024-07-01] MEDS ORDERED: TraZODone HCl 50 MG Tab PO SCH (21:00)
[2024-07-01 21:10] VITALS: BP 119/75
--- NOTE | 2024-07-02 04:03 | NUR ---
SHIFT SUMMARY 69 YR M ADMITTED ON 06/24/24. DNR. NO ACUTE CHANGES THIS SHIFT. MELATONIN AND TRAZODONE GIVEN WITH EVENING MEDS AND WERE AFFECTIVE IN HELPING TO CONTROL PT'S ANXIETY. HE APPEARS TO HAVE RESTED COMFORTABLY THROUGHOUT THE NIGHT W/ NO COMPLAINTS. HE GOT UP TO HIS WHEELCHAIR AND PUSHED HIMSELF AROUND THE UNIT FOR ABOUT 30 MINUTES. HE IS ANXIOUS TO GO HOME. BED IN LOW POSITION AND CALL LIGHT IN REACH.
[2024-07-02 04:39] VITALS: BP 103/72
[2024-07-02 06:08] LABS: Hematocrit 24.4 % (37.0-53.0); Hemoglobin 7.6 g/dL (13.5-17.5); Mean Corpuscular HGB 31.4 pg (26.0-34.0); Mean Corpuscular HGB Conc 31.1 g/dL (31.5-36.5); Mean Corpuscular Volume 101 fL (80-100); NRBC ABSOLUTE 0.04 K/mm3 (0.00-0.02); NRBC Auto 2.4 /100 WBC (0.0-0.2); RDW Coefficient Variation 19.4 % (11.7-14.2); RDW Standard Deviation 70.4 fL (35.1-46.3); Red Blood Cell Count 2.42 M/mm3 (4.30-5.90); White Blood Cell Count 1.69 K/mm3 (4.00-11.30)
[2024-07-02 06:41] LABS: Albumin, Blood 2.2 g/dL (3.4-5.0); Anion Gap 16 mmol/L (3-11); Blood Urea Nitrogen 127 mg/dL (8-24); Bun/Creatinine Ratio 27.9 (12.0-20.0); CO2, Blood 16 mmol/L (21-32); Calcium, Blood 8.6 mg/dL (8.5-10.1); Chloride, Blood 111 mmol/L (98-108); Creatinine, Blood 4.56 mg/dL (0.60-1.20); Glomerular Filtration Rate 13 (60-); Glucose, Blood 111 mg/dL (70-99); Phosphorus, Blood 7.5 mg/dL (2.5-4.9); Platelet Count 34 K/mm3 (150-400); Potassium, Blood 5.6 mmol/L (3.5-5.5); Sodium, Blood 137 mmol/L (136-145)
[2024-07-02 06:46] LABS: BAND PERCENT MAN 6 % (0-8); BASOPHILS ABSOLUTE MAN 0.06 K/mm3 (0.00-0.23); BASOPHILS PERCENT MAN 4 % (0-2); EOSINOPHILS ABSOLUTE MAN 0.03 K/mm3 (0.00-0.68); EOSINOPHILS PERCENT MAN 2 % (0-6); LYMPHOCYTES % ATYPICAL MANUAL 2 % (0-0); LYMPHOCYTES ABSOLUTE MAN 0.64 K/mm3 (0.84-5.20); LYMPHOCYTES PERCENT MAN 36 % (21-46); MONOCYTES ABSOLUTE MAN 0.13 K/mm3 (0.16-1.47); MONOCYTES PERCENT MAN 8 % (4-13); NEUTROPHILS ABSOLUTE MAN 0.81 K/mm3 (1.96-9.15); SEG NEUTROPHILS PERCENT MAN 42 % (41-73); TOTAL CELLS COUNTED 50
[2024-07-02 07:41] VITALS: BP 109/65
[2024-07-02] MEDS ORDERED: Sevelamer Carbonate 800 MG Tab PO SCH (08:30)
[2024-07-02] MEDS ORDERED: DEXTROSE 5% IV SCH (14:40)
[2024-07-02] MEDS ORDERED: SODIUM BICARB IV SCH (14:40)
[2024-07-02 15:14] VITALS: BP 117/63
[2024-07-02] MEDS ORDERED: Sodium Zirconium Cyclosilicate 10 GM Packet PO ONE (15:28)
--- NOTE | 2024-07-02 16:28 | NUR ---
PT IS A&OX4, INDEPENDENT IN THE ROOM. PT HAS A POSSIBLE D/C TODAY DEPENDING ON LABS. PT HAS NO QUESTIONS OR CONCERNS ATER THE MD CAME FOR S VISIT TO DISCUSS PLANS.
[2024-07-02 18:44] LABS: Albumin, Blood 2.1 g/dL (3.4-5.0); Anion Gap 14 mmol/L (3-11); Blood Urea Nitrogen 122 mg/dL (8-24); Bun/Creatinine Ratio 27.5 (12.0-20.0); CO2, Blood 19 mmol/L (21-32); Calcium, Blood 8.2 mg/dL (8.5-10.1); Chloride, Blood 109 mmol/L (98-108); Creatinine, Blood 4.43 mg/dL (0.60-1.20); Glomerular Filtration Rate 13 (60-); Glucose, Blood 164 mg/dL (70-99); Phosphorus, Blood 7.3 mg/dL (2.5-4.9); Potassium, Blood 5.3 mmol/L (3.5-5.5); Sodium, Blood 137 mmol/L (136-145)
[2024-07-02 20:22] VITALS: BP 107/71
--- NOTE | 2024-07-02 21:47 | NUR ---
WHEN I CAME ON TO SHIFT PT WAS VERY ANGRY STATING THE DOCTOR WOULD PUT IN DISCHARGE ORDERS FOR HIM TO GO HOME AFTER HIS LAB RESULTS CAME BACK THIS EVENING. THE PT'S IS AT BEDSIDE AND I TOLD THE PT THERE IS NO ORDERS FOR HIM TO D/C AT THIS TIME. THE PT WAS GOING TO LEAVE AMA AND SAID HE WOULD STAY IF HIS SULTANA CATH COULD BE REMOVED. THE PT WANTED ME TO CALL THE DOCTOR AND I SAID WE DONT CALL THE DOCTOR AFTER HOURS FOR D/C ORDERS. I REMOVED THE SULTANA AND PT IS NOW UP IN HALLWAY WITH HIS WALKER. PT IS IRRITABLE BUT HAS DECIDED TO NOT LEAVE AMA AT THIS TIME. I EDUCATED THE PT ON WHY HE HAS THE SULTANA FOR ACUTE RETENTION AND HE STILL WANTED IT REMOVED.
[2024-07-02 23:18] LABS: HOURS COLLECTED Not Provided hr; TOTAL VOLUME Not Provided mL
[2024-07-03] VITALS (8 sets, daily range): BP systolic 106–122; BP diastolic 62–78
--- NOTE | 2024-07-03 03:48 | NUR ---
SHIFT SUMM: PT IS A 69 YO DNR WHO WAS ADMITTED FOR [facility] ON 06/24/24.PT WAS HOPING TO D/C TONIGHT AND ALMOST LEFT AMA BUT CHANGED HIS MIND (SEE PREV NOTE). I REMOVED PT SULTANA PER PT'S REQUEST AND DOCTORS ORDER. PT AMBULATED IN HALLWAY W/HIS WALKER AND IS NOW RESTING IN BED W/CALL LIGHT IN REACH. PT WAS MEDICATED TO HELP HIM SLEEP. PT HAS A PICC LINE IN HIS RUBY THAT IS A CHRONIC PICC LINE. PT IS CURRENTLY UNDER NEUTROPENIC PREC. PT HAS A RLQ CHRONIC WOUND THAT NEEDS DRESSING CHANGES IT BECOMES SOILED. PT IS ON RA AND IS TOLERATING THAT WELL .PT MAKES NEEDS KNOWN AND USES CALL LIGHT. PT IS IND BUT SOMETIMES NEEDS ASSISTANCE IN THE RESTROM. PT WAS VISITED TONIGHT BY HIS . PT IS RESTING W/CALL LIGHT IN REACH.
[2024-07-03 06:32] LABS: BASOPHILS ABSOLUTE AUTO 0.02 K/mm3 (0.00-0.23); BASOPHILS PERCENT AUTO 2 % (0-2); Hemoglobin 6.6 g/dL (13.5-17.5); LYMPHOCYTES ABSOLUTE AUTO 0.25 K/mm3 (0.84-5.20); LYMPHOCYTES PERCENT AUTO 19 % (21-46); MONOCYTES ABSOLUTE AUTO 0.33 K/mm3 (0.16-1.47); MONOCYTES PERCENT AUTO 25 % (4-13); Mean Corpuscular HGB Conc 31.4 g/dL (31.5-36.5); Mean Corpuscular Volume 102 fL (80-100); NRBC ABSOLUTE 0.03 K/mm3 (0.00-0.02); NRBC Auto 2.3 /100 WBC (0.0-0.2); RDW Coefficient Variation 19.3 % (11.7-14.2); RDW Standard Deviation 71.7 fL (35.1-46.3); Red Blood Cell Count 2.06 M/mm3 (4.30-5.90); White Blood Cell Count 1.31 K/mm3 (4.00-11.30)
[2024-07-03 06:34] LABS: Bun/Creatinine Ratio 30.6 (12.0-20.0); Calcium, Blood 8.2 mg/dL (8.5-10.1); Creatinine, Blood 4.41 mg/dL (0.60-1.20); Potassium, Blood 5.4 mmol/L (3.5-5.5)
[2024-07-03 06:46] LABS: EOSINOPHILS ABSOLUTE AUTO 0.02 K/mm3 (0.00-0.68); EOSINOPHILS PERCENT AUTO 2 % (0-6); IMMATURE GRAN ABSOLUTE AUTO 0.02 K/mm3 (0.00-0.10); IMMATURE GRAN PERCENT AUTO 2 % (0-1); NEUTROPHILS ABSOLUTE AUTO 0.67 K/mm3 (1.96-9.15); NEUTROPHILS PERCENT AUTO 51 % (41-73)
[2024-07-03 06:47] LABS: Platelet Count 28 K/mm3 (150-400)
--- NOTE | 2024-07-03 12:09 | NUR ---
THIS NURSE AND SPOKE W/ PT ABOUT BLOOD TRANSFUSION PROTOCALL ON THE MED FLOOR AND HOW IT DIFFERS FROM THE [facility] OUTPATIENT. PT EDUCATED ON A SAFE [facility]ION RATE OF BLOOD IN REGARDS TO HIS CURRENT SITUATION AND CO MORBIDITIES. PT VERBALIZED UNDERSTANDING, BUT STATED THAT HE WANTED TO BE D/C TODAY BY 1500. 2 UNITS WOULD NOT BE ABLE TO BE INFUSED BEFORE D/C. THIS NURSE CALLED TO NOTIFY HIM OF THE SITUATION. PER , INFUSE 1 UNIT AND THEN D/C PT TO FOLLOW UP W/ [facility] TOMORROW. PHARMACY OPERATIONS COORDINATORRICHARD RG NOTIFIED.
[2024-07-03] MEDS ORDERED: SEVEC800 PO (14:18)
[2024-07-03] MEDS ORDERED: LOKELMA10 GM PO (14:18)
--- NOTE | 2024-07-03 14:43 | NUR ---
DISCHARGE NOTE PT DISCHARGED HOME AT 1440. PT A&OX4, VSS, RA, AMB W/ SBA, TOLERATING PO, VOIDING, AND DENIED PAIN. PICC REMAINED IN PLACE. PT TO FOLLOW UP W/ [facility] TOMORROW. BELONGINGS WERE RETURNED AND PT ESCOURTED OUT VIA W/C BY TIFFANY CASTILLO.
== END 2024-07-03 14:45 | disposition home or self-care (01) | DRG 871 ==
LOC: ER 07:14 → PCU 13:05 → MEDS 13:05 → PCU 16:47 → MEDS 06-29 13:58 → ENPENDDIS 07-03 15:55
PROVIDERS: Emergency Medicine; Hospitalist; Internal Medicine Nephrology; Student in an Organized Health Care Education/Training Program; ADMIT Family Medicine
PROC: 30233N1 Transfusion of Nonautologous Red Blood Cells into Peripheral Vein, Percutaneous Approach (ICD-10-PCS; 2024-06-24)
PROC: 3E03329 Introduction of Other Anti-infective into Peripheral Vein, Percutaneous Approach (ICD-10-PCS; principal; 2024-06-25)
DX: A41.9 Sepsis, unspecified organism (principal); J15.9 Unspecified bacterial pneumonia; J96.01 Acute respiratory failure with hypoxia; I45.2 Bifascicular block; I13.0 Hypertensive heart and chronic kidney disease with heart failure and stage 1 through stage 4 chronic kidney disease, or unspecified chronic kidney disease; Z66 Do not resuscitate; E87.20 Acidosis, unspecified; N17.9 Acute kidney failure, unspecified; D61.9 Aplastic anemia, unspecified; D84.821 Immunodeficiency due to drugs; N18.4 Chronic kidney disease, stage 4 (severe); R65.20 Severe sepsis without septic shock; E87.5 Hyperkalemia; E83.39 Other disorders of phosphorus metabolism; I35.0 Nonrheumatic aortic (valve) stenosis; I50.9 Heart failure, unspecified; E78.5 Hyperlipidemia, unspecified; E66.9 Obesity, unspecified; Z68.33 Body mass index [BMI] 33.0-33.9, adult; N13.9 Obstructive and reflux uropathy, unspecified; E11.22 Type 2 diabetes mellitus with diabetic chronic kidney disease; I48.0 Paroxysmal atrial fibrillation; M10.9 Gout, unspecified; Z90.49 Acquired absence of other specified parts of digestive tract; Z79.899 Other long term (current) drug therapy; Z87.891 Personal history of nicotine dependence
CPT/HCPCS: 36415; 36430; 51702; 71046; 71275; 76770; 80048; 80053; 80069; 81001; 82272; 82550; 82947; 83010; 83516; 83605; 83690; 83735; 83880; 84132; 84145; 84156; 84166; 84484; 84550; 85014; 85018; 85025; 85045; 85379; 86039; 86334; 86335; 86704; 86850; 86880; 86900; 86901; 86923; 87040; 93005; 93010; 93306; 96365-59; 96375-59; 97116; 97161; 97530; 99285-25; A9270; J0456; J0696; J1815; J1940; J2270; J3475; J7040; J7050; J7060; J7502; P9016; Q5125; Q9967

== ENCOUNTER 2024-07-04 07:22 | Inpatient (IN) | payer OTHER ==
[~2024-07-04] VITALS: Ht 182.9 cm; Wt 113.4 kg
[~2024-07-04 07:22] MED LIST changes: +LOKELMA10 GM PO; +SEVEC800 PO
[2024-07-04] MEDS ORDERED: Morphine Sulfate 4 MG/1 ML Injection IV ONE (07:50)
[2024-07-04 08:21] LABS: Chloride (POC) 111 mmol/L (98-108); Glucose (ISTAT POC) 96 mg/dL (70-99); Hemoglobin (POC) 7.8 g/dL (13.5-17.5); Potassium (POC) 5.4 mmol/L (3.5-5.5); Sodium (POC) 136 mmol/L (135-148); Total CO2 (POC) 15 mmol/L (21-32)
[2024-07-04 08:49] LABS: Hematocrit 23.8 % (37.0-53.0); Hemoglobin 7.6 g/dL (13.5-17.5); Mean Corpuscular HGB 31.9 pg (26.0-34.0); Mean Corpuscular HGB Conc 31.9 g/dL (31.5-36.5); Mean Corpuscular Volume 100 fL (80-100); NRBC ABSOLUTE 0.05 K/mm3 (0.00-0.02); NRBC Auto 3.1 /100 WBC (0.0-0.2); RDW Coefficient Variation 18.6 % (11.7-14.2); RDW Standard Deviation 67.3 fL (35.1-46.3); Red Blood Cell Count 2.38 M/mm3 (4.30-5.90)
[2024-07-04 08:57] LABS: Platelet Count 32 K/mm3 (150-400)
[2024-07-04 09:05] LABS: Albumin, Blood 2.4 g/dL (3.4-5.0); Albumin/Globulin Ratio 0.7 (0.8-1.8); Bilirubin, Total 1.2 mg/dL (0.1-1.0); Bun/Creatinine Ratio 30.3 (12.0-20.0); Calcium, Blood 8.4 mg/dL (8.5-10.1); Creatinine, Blood 4.69 mg/dL (0.60-1.20); Globulin, Blood 3.4 g/dL (2.2-4.0); Magnesium, Blood 1.7 mg/dL (1.6-2.4); Potassium, Blood 5.5 mmol/L (3.5-5.5); Total Protein, Blood 5.8 g/dL (6.4-8.2)
[2024-07-04] MEDS ORDERED: HYDROmorphone HCl/Pf 1MG SYR IV ONE (09:10)
[2024-07-04 09:51] LABS: BAND PERCENT MAN 18 % (0-8); BASOPHILS ABSOLUTE MAN 0.09 K/mm3 (0.00-0.23); BASOPHILS PERCENT MAN 6 % (0-2); EOSINOPHILS PERCENT MAN 0 % (0-6); LYMPHOCYTES ABSOLUTE MAN 0.19 K/mm3 (0.84-5.20); LYMPHOCYTES PERCENT MAN 12 % (21-46); MONOCYTES ABSOLUTE MAN 0.19 K/mm3 (0.16-1.47); MONOCYTES PERCENT MAN 12 % (4-13); NEUTROPHILS ABSOLUTE MAN 1.12 K/mm3 (1.96-9.15); SEG NEUTROPHILS PERCENT MAN 52 % (41-73); TOTAL CELLS COUNTED 50
[2024-07-04] MEDS ORDERED: FentaNYL Citrate 50 MCG/ML 2 ML Injection IV ONE (10:45)
[2024-07-04] MEDS ORDERED: FLU VACC TS2024-25(6MOS UP)/PF 45 MCG/0.5 ML SYRINGE IM SCH (13:10)
[2024-07-04] MEDS ORDERED: Ondansetron 4 MG TAB PO PRN (13:10)
[2024-07-04 14:40] VITALS: BP 117/58
[2024-07-04] MEDS ORDERED: HYDROcodone 5-APAP 325 TAB PO PRN (15:25)
[2024-07-04] MEDS ORDERED: Sodium Bicarb 8.4% Inj 150 MEQ in Dextrose 5% 1,000 ML IV SCH (16:00)
--- NOTE | 2024-07-04 16:53 | NUR ---
PT ARRIVED TO RM 217 AT 1435. PT ALERT, ORIENTED AND PLEASANT UPON ARRIVAL. PT REPORTS PAIN WITH MOVEMENT BUT PAIN IMPROVES WHEN PT LEFT TO REST. RLE ELEVATED ON PILLOWS FOR COMFORT. PT'S O2 SATURATION WAS 88-91% UPON ARRIVAL. PT REPORTED FEELING SLIGHTLY SHORT OF BREATH WHILE LAYING DOWN, PT STATES THIS IS BASELINE FOR HIM. PT ASSISTED TO ELEVATE HOB WITH NO CHANGE IN SATURATION. PT PLACED ON 2L O2 VIA NC AND O2 SATURATIONS IMPROVED TO GREATER THAN 92%. PT EDUCATED TO USE THE CALL LIGTH AND IT WAS PLACED WITHIN REACH.
[2024-07-04 19:56] VITALS: BP 125/62
[2024-07-04] MEDS ORDERED: Acetaminophen 500 MG Tab PO PRN (20:20)
--- NOTE | 2024-07-04 20:27 | NUR ---
SHIFT SUMMARY PAIN HAS BEEN MANAGED WITH REST/POSITIONING FOR COMFORT. PT USES CALL LIGHT APPROPRIATELY. PT WILL BE NPO AT MIDNIGHT FOR POSSIBLE PROCEDURE TOMORROW. REPORT GIVEN TO ONEIDA RAMOS.
[2024-07-04] MEDS ORDERED: Metoprolol Succinate 25 MG TABCR PO SCH (21:00)
[2024-07-04] MEDS ORDERED: Morphine Sulfate 4 MG/1 ML Injection IV PRN (21:05)
[2024-07-04 21:21] LABS: Protein, Urine Random 85.3 mg/dL (0.0-11.9); Uric Acid, Urine Random 12.2 mg/dL (7.5-49.5)
[2024-07-04] MEDS ORDERED: Sennosides 8.6 MG Tab PO SCH (22:00)
[2024-07-05] VITALS (7 sets, daily range): BP systolic 106–126; BP diastolic 62–79
--- NOTE | 2024-07-05 03:41 | NUR ---
WOUND CARE THE ELODIA WRAP NOTED TO BE SATURATED THROUGH IN TWO SPOTS, ABOUT 2 INCHES BY 1 INCH, W/ SANGUINEOUS EXUDATE. MEPETEL REINFORCD W/ ABD AND NEW ELODIA WRAP.
[2024-07-05 04:50] LABS: Hematocrit 20.4 % (37.0-53.0); Hemoglobin 6.6 g/dL (13.5-17.5); Mean Corpuscular HGB 32.4 pg (26.0-34.0); Mean Corpuscular HGB Conc 32.4 g/dL (31.5-36.5); Mean Corpuscular Volume 100 fL (80-100); NRBC ABSOLUTE 0.03 K/mm3 (0.00-0.02); NRBC Auto 2.5 /100 WBC (0.0-0.2); RDW Coefficient Variation 18.6 % (11.7-14.2); RDW Standard Deviation 67.4 fL (35.1-46.3); Red Blood Cell Count 2.04 M/mm3 (4.30-5.90); White Blood Cell Count 1.22 K/mm3 (4.00-11.30)
[2024-07-05 05:08] LABS: Magnesium, Blood 1.7 mg/dL (1.6-2.4); Uric Acid, Blood 8.8 mg/dL (3.5-7.2)
[2024-07-05 05:13] LABS: Platelet Count 33 K/mm3 (150-400)
[2024-07-05 05:15] LABS: Alanine Aminotransfer (ALT/SGP 9 U/L (12-78); Albumin, Blood 2.2 g/dL (3.4-5.0); Albumin/Globulin Ratio 0.7 (0.8-1.8); Alk Phos 56 U/L (50-136); Anion Gap 15 mmol/L (3-11); Aspartate Aminotrans (AST/SGOT < 12 U/L (12-37); Bilirubin, Total 0.8 mg/dL (0.1-1.0); Blood Urea Nitrogen 143 mg/dL (8-24); Bun/Creatinine Ratio 29.3 (12.0-20.0); CO2, Blood 20 mmol/L (21-32); Calcium, Blood 8.4 mg/dL (8.5-10.1); Chloride, Blood 111 mmol/L (98-108); Creatinine, Blood 4.88 mg/dL (0.60-1.20); Globulin, Blood 3.1 g/dL (2.2-4.0); Glomerular Filtration Rate 12 (60-); Glucose, Blood 171 mg/dL (70-99); Potassium, Blood 5.5 mmol/L (3.5-5.5); Sodium, Blood 140 mmol/L (136-145); Total Protein, Blood 5.3 g/dL (6.4-8.2)
--- NOTE | 2024-07-05 05:22 | NUR ---
DOCTOR COMMUNICATION CALL PLACED TO HOSPITALIST R/T PT'S AM LABS. H/H NOTED TO BE LOW, AND THE PATIENT HAD A CRITICAL PLATLET COUNT. RECIEVED ORDER FOR 1U PRBC AND A REDRAW FOR H/H AND PLATLETS AFTER THE TRANSFUSION IS COMPLETE
[2024-07-05] MEDS ORDERED: NS 250 ML IV PRN (05:25)
--- NOTE | 2024-07-05 06:06 | NUR ---
SHIFT SUMMARY VSS. PT HAS SLEPT WELL T/O THE NIGHT. RLE REMAINS IN A SPLINT, CAP REFILL WNL AND SENSATION REMAINS INTACT. PT CAN MOVE TOES ON COMMAND. MEDICATED FOR PAIN W/4MG MORPHINE W/GOOD RESULTS. PT PLACED ON 3L VIA NC T/O THE NIGHT D/T DESATURATIONS WHILE SLEEPING. PT HAS BEEN VOIDIONG W/O DIFFICULTY, AND TOLLERATED PO INTAKE UNTIL 0000 WHEN HE WAS MADE NPO. PLAN FOR OR TODAY WITH DR. BLUE AND DR LOPEZ.
[2024-07-05 06:23] LABS: BAND PERCENT MAN 15 % (0-8); BASOPHILS ABSOLUTE MAN 0.01 K/mm3 (0.00-0.23); BASOPHILS PERCENT MAN 1 % (0-2); EOSINOPHILS ABSOLUTE MAN 0.01 K/mm3 (0.00-0.68); EOSINOPHILS PERCENT MAN 1 % (0-6); LYMPHOCYTES ABSOLUTE MAN 0.29 K/mm3 (0.84-5.20); LYMPHOCYTES PERCENT MAN 24 % (21-46); MONOCYTES PERCENT MAN 25 % (4-13); NEUTROPHILS ABSOLUTE MAN 0.59 K/mm3 (1.96-9.15); SEG NEUTROPHILS PERCENT MAN 34 % (41-73); TOTAL CELLS COUNTED 100
[2024-07-05] MEDS ORDERED: Cyanocobalamin 500 MCG Tab PO SCH (09:00)
[2024-07-05] MEDS ORDERED: Sevelamer Carbonate 800 MG Tab PO SCH (09:00)
[2024-07-05] MEDS ORDERED: Sodium Zirconium Cyclosilicate 10 GM Packet PO SCH (09:00)
[2024-07-05] MEDS ORDERED: Enoxaparin 40 MG/0.4 ML SYR SC SCH (09:00)
[2024-07-05] MEDS ORDERED: Insulin Glargine-Yfgn 100 Unit/mL 3 ML SYR SC SCH (09:00)
[2024-07-05] MEDS ORDERED: Allopurinol 100 MG Tab PO SCH (09:00)
[2024-07-05] MEDS ORDERED: Tamsulosin HCl 0.4 MG Cap PO SCH (09:00)
[2024-07-05] MEDS ORDERED: Misc. Tablet PO SCH (09:00)
[2024-07-05] MEDS ORDERED: Cholecalciferol 1000 Unit Tablet (=25MCG) PO SCH (09:00)
[2024-07-05 12:37] LABS: Hematocrit 22.9 % (37.0-53.0); Hemoglobin 7.3 g/dL (13.5-17.5)
[2024-07-05 12:44] LABS: Platelet Count 32 K/mm3 (150-400)
--- NOTE | 2024-07-05 17:31 | NUR ---
SHIFT SUMMARY PATIENT ALERT AND INTERACTIVE BUT CONFUSED AT TIMES. PATIENT HAVING ISSUES WITH PAIN CONTROL AFTER WORKING WITH THERAPY. PATIENT MEDICATED PER MAR THROUGHOUT THE DAY FOR PAIN. PATIENT TURNED FREQUENTLY AND R LEG POSITIONED PER DR BLUE'S REQUEST. ABD DRESSING CHANGED BECAUSE OF LEAKING. FOUL ODOROUS DRAINAGE LEAKING FROM WOUND. DR LOPEZ AWARE AND PRESENT WHEN DRESSING CHANGED. NO SURGERY TODAY PER ORTHO AND SURGERY.
[2024-07-06 00:12] VITALS: BP 119/71
--- NOTE | 2024-07-06 00:28 | NUR ---
PT TRANFERRED TO MEDICAL UNIT RM 350 @ 0010 WITH ALL BELONGINGS/RX. PT TRANPORTED WITH O2 4L/NC AND IV PUMP INFUSING D5W BICARB @ 100 ML/HR. REPORT GIVEN TO APOLLO RAMOS.
[2024-07-06 06:38] VITALS: BP 147/118
[2024-07-06 07:17] VITALS: BP 103/63
--- NOTE | 2024-07-06 08:11 | NUR ---
PT TRANSFERED FROM SURGICAL FLOOD/CONSULTING SERVICES MANAGER SUMMARY PT TO MEDICAL FLOOR IN BED; SWAPED BEDS TO AVOID ATTEMPTING TRANSFER OF THE PT. PT HAS A RT TIBIA/FIBULA FX. RT LEG IN SPLINT. REPORT RECVD FROM RICHARD DUGGAN. PER REPORT PT IS NOT A SURGICAL CANIDATE DUE TO OTHER MEDICAL CONDITIONS. PT IS NWB ON RIGHT LEG. PT REQUIRING OXYGEN AT 3-5LPM. HX OF JAIRO BUT PT NON COMPLAINT WITH CPAP. PT ON CONTINUOUS BIOX. PT HAVING PERIODIC AND BRIEF DESAT T/O THE NIGHT WITH QUICK RECOVERY. PT HAS MULTIPLE SKIN TEARS TO THE LEFT ARM/ELBOW. DRESSINGS SATURATED WITH DARK/SHARRI BLOOD. CHANGED AT BEDSIDER PER ORDER. ORIENTED PT TO ROOM AND CALL LIGHT. PT DENIED BEING IN PAIN OR NEED FOR PAIN MED RECEIVED PHONE CALL FROM DR BLUE-- STATED TO LEAVE PT NPO FOR POSSIBLE INTERVENTIONS TO PROVIDE BETTER SPLINTING. ADVISED PT HAD BEEN EATING NIGHT BEFORE. NOTHING TO EAT SINCE MIDNIGHT BUT HAS 4 OZ OF WATER. STATED WATER INTAKE WAS FINE BUT NPO STARTING NOW. REQUESTED SURGICAL PACKET BE PLACED WITH PT'S CHART. ADVISED PT OF 'S PHONE CALL AND STATED WOULD COME IN AND DISCUSS WITH HIM PRIOR TO SURGERY. PT DEMONSTRATED UNDERSTANDING. ADVISED PT'S ORCHESTRA CONDUCTOR AND ONCOMING NURSE OF NEED FOR NPO STATUS AND SURGICAL PACKET.
[2024-07-06 16:28] VITALS: BP 103/64
--- NOTE | 2024-07-06 18:48 | NUR ---
SHIFT SUMMARY PT A&OX4 AND FORGETFUL, VSS, BEDREST AT THIS TIME, TOLERATING PO, VOIDING MINIMAL AMOUNT, AND PAIN MANAGED PER EMAR. PT RESCHEDULED FOR SPLINT/CAST PLACEMENT TOMORROW AND TO BE NPO AFTER MIDNIGHT. WOUND CARE/DRESSING COMPLETED PER ORDER. NO OTHER ACUTE CHANGES. CALL LIGHT WITHIN REACH AND PT ABLE TO MAKE NEEDS KNOWN.
[2024-07-06 20:38] VITALS: BP 95/58
[2024-07-06] MEDS ORDERED: Sodium Bicarb 8.4% Inj 100 MEQ in Sodium Chloride 0.45% 1,000 ML IV SCH (21:05)
[2024-07-07] VITALS (12 sets, daily range): BP systolic 92–175; BP diastolic 53–155
--- NOTE | 2024-07-07 00:20 | NUR ---
SULTANA CATHETER PLACED. PATIENT HAS ORDER FOR INDWELLING CATHETER FOR BLADDER SCAN >150 AND PATIENTS AGREEMENT FOR PLACEMENT. FIRST CATHETER ATTEMPTED WAS UNSUCCESSFUL-WHEN PLACING THE CATHERTER NO FLASH WAS SEEN WITH INSERTION OF CATHETER AND WAS PAINFUL TO PATIENT; SULTANA REMOVED AND BLOOD CLOT NOTED IN OPENING OF CATHETER. SECOND CATHETER ATTEMPT WAS SUCCESSFUL-CATHETER PLACED WITH EASE. UPON FLASH PINK URINE WAS NOTED-CATHETER DRAINED A YELLOW URINE THAT TURNED TO TED-WHEN CATHETER FLOW SLOWED BROWNISH COLORED URINE WAS NOTED IN A SMALL AMOUNT. THIS RN ASKED PATIENT IF HE HAS ANY HISTORY OF URINATING BLOOD OR BLOOD CLOTS WHEN URINATING-PATIENT DENIES ANY HISTORY OF BLOOD CLOTS.
--- NOTE | 2024-07-07 00:35 | NUR ---
HOSPITALIST CONTACTED. NOTIFIED OF BLOOD CLOT IN CATHETER INSERION POINT-SEE PREVIOUS NOTEE. PER DOCTOR JOANNA HOLD ANTICOAGULANTS FOR 24 HOURS-PATIENT IS NOT ON ANTICOAGULANT MEDICATIONS THAT THIS RN NOTED. AT THIS TIME TO MONITOR OUTPUT FOR BLOOD CLOTS.
--- NOTE | 2024-07-07 05:09 | NUR ---
SHIFT SUMMARY. PATIENT IS A&OX4. CATHETER PLACED THIS SHIFT-BLOOD FROM URETHRA NOTED- NOTIFIED, NO CHANGES MADE AT THIS TIME. PATIENTS DRESSING CHANGED TO RLQ AND TO LEFT ARM/ELBOW. PATIENT PAINFUL THIS SHIFT-MEDICATED PER ORDERS. PATIENT HAS BEEN NPO SINCE 0000. PER CHARGE NURSE PATIENT ADDED TO SURGERY LIST AND WILL BE SEEN LATER IN THE DAY-WILL REPORT TO DAYSHIFT RN. BED IS LOCEKD IN THE LOWEST POSITION WITH CALL LIGHT IN REACH. CARE IS ONGOING.
[2024-07-07 06:23] LABS: Hematocrit 19.3 % (37.0-53.0); Hemoglobin 6.2 g/dL (13.5-17.5); Mean Corpuscular HGB 31.6 pg (26.0-34.0); Mean Corpuscular HGB Conc 32.1 g/dL (31.5-36.5); Mean Corpuscular Volume 99 fL (80-100); NRBC ABSOLUTE 0.04 K/mm3 (0.00-0.02); NRBC Auto 4.3 /100 WBC (0.0-0.2); RDW Standard Deviation 67.7 fL (35.1-46.3); Red Blood Cell Count 1.96 M/mm3 (4.30-5.90)
[2024-07-07 06:30] LABS: Platelet Count 21 K/mm3 (150-400); White Blood Cell Count 0.92 K/mm3 (4.00-11.30)
[2024-07-07 06:44] LABS: Alanine Aminotransfer (ALT/SGP 7 U/L (12-78); Albumin, Blood 1.9 g/dL (3.4-5.0); Albumin/Globulin Ratio 0.6 (0.8-1.8); Alk Phos 49 U/L (50-136); Anion Gap 12 mmol/L (3-11); Aspartate Aminotrans (AST/SGOT <3 U/L (12-37); Blood Urea Nitrogen 149 mg/dL (8-24); Bun/Creatinine Ratio 29.3 (12.0-20.0); CO2, Blood 23 mmol/L (21-32); Calcium, Blood 8.1 mg/dL (8.5-10.1); Chloride, Blood 109 mmol/L (98-108); Creatinine, Blood 5.09 mg/dL (0.60-1.20); Globulin, Blood 3.4 g/dL (2.2-4.0); Glomerular Filtration Rate 11 (60-); Glucose, Blood 109 mg/dL (70-99); Potassium, Blood 5.4 mmol/L (3.5-5.5); Sodium, Blood 139 mmol/L (136-145); Total Protein, Blood 5.3 g/dL (6.4-8.2)
[2024-07-07 06:56] LABS: BAND PERCENT MAN 12 % (0-8); BASOPHILS ABSOLUTE MAN 0.07 K/mm3 (0.00-0.23); BASOPHILS PERCENT MAN 8 % (0-2); EOSINOPHILS ABSOLUTE MAN 0.03 K/mm3 (0.00-0.68); EOSINOPHILS PERCENT MAN 4 % (0-6); LYMPHOCYTES ABSOLUTE MAN 0.14 K/mm3 (0.84-5.20); LYMPHOCYTES PERCENT MAN 16 % (21-46); MONOCYTES ABSOLUTE MAN 0.11 K/mm3 (0.16-1.47); MONOCYTES PERCENT MAN 12 % (4-13); NEUTROPHILS ABSOLUTE MAN 0.55 K/mm3 (1.96-9.15); SEG NEUTROPHILS PERCENT MAN 48 % (41-73); TOTAL CELLS COUNTED 25
--- NOTE | 2024-07-07 10:44 | NUR ---
THIS NURSE NOTIFIED DURING HIS AM ROUND ON PT ABOUT THE PT'S H&H, PLT, AND WBC LAB. NEW ORDERS RECEIVED AND EMAR UPDATED.
[2024-07-07] MEDS ORDERED: NS 500 ML IV SCH (12:25)
[2024-07-07] MEDS ORDERED: Furosemide 10 MG/ML 10ML Vial IV ONE (13:40)
[2024-07-07] MEDS ORDERED: Piperacillin/Tazobactam Sod 2.25 GM in NS 50 ML IV SCH (16:00)
--- NOTE | 2024-07-07 17:59 | NUR ---
THIS NURSE NOTIFIED ABOUT CHANGE IN PT'S STATUS. PT A&OX2 W/ CONFUSION, SLOW TO RESPOND, AND INTERMIT BLANK STARE. PT HAD LOW BP X2 THIS SHIFT THAT DID IMPROVE AFTER BLOOD ADMINISTRATION. NO NEW ORDERS AT THIS TIME.
[2024-07-07] MEDS ORDERED: Furosemide 10 MG / ML 2ML Vial IV SCH (18:00)
--- NOTE | 2024-07-07 18:38 | NUR ---
SHIFT SUMMARY PT A&OX4 THIS AM, LOW BP, MINIMAL OUTPUT, SODIUM BICARB INFUSING, AND DENIED PAIN. T/O SHIFT, PT STEADILY BECAME ALTERED AND IS NOW A&OX2, SLOW TO RESPOND, AND APPEARS TO BLANKLY STARE AT THE CEILING AT TIMES. 1 UNIT OF RBC'S GIVEN. BP IMPROVED. NO PLAN FOR RESPLINTING OR CAST UNTIL KNEE MRI COMPLETED PER . PLAN FOR DIALYSIS CATH PLACEMENT TOMORROW. THIS NURSE NOTIFIED W/ PT STATUS UPDATE, SEE PREVIOUS NOTE. CALL LIGHT WITHIN REACH.
[2024-07-08] MEDS ORDERED: D5W-1/2NS 1,000 ML IV SCH (04:55)
--- NOTE | 2024-07-08 04:55 | NUR ---
0445-[facility] [place]-PATIENT REFUSING APPLE JUICE AT THIS TIME. PATIENT IS CURRENTLY NPO FOR POSSIBLE DIALYSIS CATHETER PLACEMENT TODAY PER DR. PEARCE NOTE. NOTIFIED AND ORDERED D5 1/2 NS AT 75ML/HR FOR A TOTAL OF 12H. D5 1/2NS INFUSING BLOOD SUGAR TO BE RECHECKED AT 0600.
[2024-07-08 05:03] VITALS: BP 104/69
[2024-07-08 05:47] LABS: Hematocrit 20.5 % (37.0-53.0); Hemoglobin 6.7 g/dL (13.5-17.5); Mean Corpuscular HGB 31.5 pg (26.0-34.0); Mean Corpuscular HGB Conc 32.7 g/dL (31.5-36.5); Mean Corpuscular Volume 96 fL (80-100); NRBC ABSOLUTE 0.04 K/mm3 (0.00-0.02); RDW Coefficient Variation 18.6 % (11.7-14.2); RDW Standard Deviation 64.2 fL (35.1-46.3); Red Blood Cell Count 2.13 M/mm3 (4.30-5.90)
[2024-07-08 06:11] LABS: Platelet Count 20 K/mm3 (150-400); White Blood Cell Count 0.99 K/mm3 (4.00-11.30)
[2024-07-08 06:26] LABS: Albumin, Blood 1.9 g/dL (3.4-5.0); Albumin/Globulin Ratio 0.6 (0.8-1.8); Bilirubin, Total 1.1 mg/dL (0.1-1.0); Bun/Creatinine Ratio 29.3 (12.0-20.0); Calcium, Blood 7.9 mg/dL (8.5-10.1); Creatinine, Blood 5.26 mg/dL (0.60-1.20); Globulin, Blood 3.3 g/dL (2.2-4.0); Potassium, Blood 5.3 mmol/L (3.5-5.5); Total Protein, Blood 5.2 g/dL (6.4-8.2)
[2024-07-08 06:31] LABS: BAND PERCENT MAN 8 % (0-8); BASOPHILS ABSOLUTE MAN 0.03 K/mm3 (0.00-0.23); BASOPHILS PERCENT MAN 4 % (0-2); EOSINOPHILS ABSOLUTE MAN 0.03 K/mm3 (0.00-0.68); EOSINOPHILS PERCENT MAN 4 % (0-6); LYMPHOCYTES ABSOLUTE MAN 0.15 K/mm3 (0.84-5.20); LYMPHOCYTES PERCENT MAN 16 % (21-46); MONOCYTES ABSOLUTE MAN 0.11 K/mm3 (0.16-1.47); MONOCYTES PERCENT MAN 12 % (4-13); NEUTROPHILS ABSOLUTE MAN 0.63 K/mm3 (1.96-9.15); SEG NEUTROPHILS PERCENT MAN 56 % (41-73); TOTAL CELLS COUNTED 25
--- NOTE | 2024-07-08 07:32 | NUR ---
SHIFT SUMMARY. PATIENT IS A&OX2 AT THE BEGINNING OF SHIFT, PATIENT HAS HAD 2 EPISODES OF HYPOGLYCEMIA-RECEIVING D5 1/2NS AT 75MLS/HR. WOUND DRESSINGS CHANGED THIS MORNING. PATIENT C/O PAIN-MEDICATED PER EMAR. PATIENT HAS NOT BEEN EATING, IS WITHDRAWN AND HAS DECLINED SINCE PREVIOUS NIGHT. PATIENT IS CURRENTLY NWB ON THE RIGHT LEG D/T TIB-FIB FX.RLE CURRENTLY SPLINTED. PLAN IS FOR DIALYSIS CATHETER PLACEMENT TODAY PER NOTE. PATIENT ON 3LPM VIA NASAL CANNULA SATTING >93%-PATIENT WILL REMOVE OXYGEN AT TIMES AND DESATS INTO THE LOW 80'S. PATIENT WOULD BENEFIT FROM A VISIT FROM PALLIATIVE CARE. PATIENTS HAS PICC LINE TO LLU THAT IS NOT DRAWING THIS AM-FLUSHES WITH EASE. BED IS LOCKED IN THE LOWEST POSITION WITH CALL LIGHT IN REACH. REPORT GIVEN TO DAYSHIFT NURSE.
[2024-07-08 08:07] VITALS: BP 103/54
--- NOTE | 2024-07-08 09:57 | NUR ---
SHIFT ASSESSMENT NOTE: PER NOC REPORTS PATIENT A/OX3-4. ON THIS RN ENCOUNTER, PATIENT MENTATION HAS CHANGED. PATIENT A/O TO NAME ONLY, LETARGIC, VISIBLE TREMORS TO CHAIN. PALLIATIVE CONSULT IN PLACED AND LEFT A MESSAGE TO REVIEWED PATIENT CHART. NOTIFIED COLLAR STAY FUSER TENDER, KWESI PHILLIPS THIS CONCERNED. PATIENT SCHEDULED PO AND IV LASIX HELD. KAILYN PALLIATIVE RN, CAME BY AT AROUND [address] SCHAEFER. AT AROUND 0955, PATIENT COUGH SOME BLOOD. NOTIFIED DR. SCHAEFER. PER DR. SCHAEFER HE WILL ROUND PATIENT SOON AND PLAN TO CALL PATIENT SISTER, AMAN FOR AN UPDATE.
[2024-07-08] MEDS ORDERED: Haloperidol Lactate Inj. 5 MG/ML Injection IV PRN (10:15)
[2024-07-08] MEDS ORDERED: LORazepam 2 MG/ML 1ML Injection IV PRN (10:15)
[2024-07-08] MEDS ORDERED: Atropine Sulfate 1% Opth Soln 2ML BTL SL PRN (10:15)
[2024-07-08] MEDS ORDERED: Scopolamine Hydrobromide Patch TOP PRN (10:15)
[2024-07-08] MEDS ORDERED: Haloperidol Lactate 2 MG/ML Conc 1ML Dose PO PRN (10:15)
[2024-07-08] MEDS ORDERED: LORazepam 1 MG Tab PO PRN (10:15)
[2024-07-08] MEDS ORDERED: Ondansetron HCl 2 MG / ML 2ML Vial IV PRN (10:15)
[2024-07-08] MEDS ORDERED: Morphine Sulfate 20 MG/1ML 1 ML Oral Syringe SL PRN (10:15)
--- NOTE | 2024-07-08 10:20 | NUR ---
Pt's prognosis poor, his condition has worsened. Girlfriend Sujey at bedside. Dr. De Souza spoke with pt's brother by phone, sister is POA but unavailable by phone this am. Per pt's brother, they have discussed the possibility of pt's condition worsening, and agree that comfort care would be appropriate. Since pt's condition worsening, comfort care being ordered now.
[2024-07-08 17:19] LABS: HEPATITIS B SURFACE ANTIGEN Negative (Negative)
--- NOTE | 2024-07-08 18:25 | NUR ---
SHIFT SUMMARY: PATIENT ON COMFORT CARE MEASURES. PATIENT RESPONDS TO VERBAL AND PAINFUL STIMULI. PATIENT MEDICATED PER EMAR AND REPOSITIONED FOR COMFORT. PATIENT HAS SULTANA c MINIMAL OUTPUT. PATIENT RECEIVED BEDBATH AND LINEN CHANGED. PATIENT SISTER AND FAMILY AT BEDSIDE VISITING FROM [place]. ORAL CARE DONE. PATIENT APPEARS SLEEPING c EYES CLOSED AND NO FACIAL GRIMACES NOTED AT THIS TIME. CALL LIGHT IN REACH.
--- NOTE | 2024-07-09 07:45 | NUR ---
RADIO OPERATOR SUMMARY PT ON COMFORT CARE. PT SOLMNOLENT T/O THE NIGHT. PT WOULD ARROUSE BRIEFLY TO VERBAL STIMULI WITH BRIEF PERIODS OF OPENING EYES. PT SISTER AT BEDSIDE T/O THE NIGHT. FAMILY REQUESTED MINIMAL MOVEMENT PT IS PAINFUL. SLIGHT ADJUSTMENTS TO POSITION EVERY 2 HOURS. CATH CARE COMPLETE. LITTLE URINE OUTPUT. CALL LIGHT ACCESSIBLE. PT MED PER SEP. PT HAVING EPISODES OF AIR HUNGER AND INCREASED WORK OF BREATHING. AT SHIFT REPORT THIS AM; NOTICED AUDIBLE RATTLE FOR THE FIRST TIME. ONCOMING NURSE PLANNED TO GIVE SCOPOLOMINE.
--- NOTE | 2024-07-09 13:10 | NUR ---
SHIFT/FINAL DISCHARGE: PATIENT ON COMFORT CARE MEASURE. PATIENT OPEN HIS EYES c ORAL CARE, NON VERBAL. PATIENT MEDICATED FOR AIR HUNGER, COMFORT AND ORAL SECRETION PER EMAR c GOO EFFECT. CATH CARE DONE. PATIENT SISTER (HUA) AT BEDSIDE. PATIENT TOD 0825, VERIFIED BY RICHARD BURNETT. NOTIFIED LYNDA IGLESIAS RN, SONU JAMES, NURSING LABEL STAMPER AND DR. SCHAEFER. PATIENT SULTANA AND PICC LINE DC'D. PATIENT LEFT THE ROOM AT 1158 TRANSPORTED VIA GURNEY BY XANDER BLANCA, FROM [facility] [place]
== END 2024-07-09 08:25 | DRG 563 ==
LOC: ER 07:22 → SURS 07:23 → MEDS 07:23 → SURS 14:35 → MEDS 07-05 23:57
PROVIDERS: Hospitalist; Student in an Organized Health Care Education/Training Program; ADMIT Internal Medicine
DX: S82.301A Unspecified fracture of lower end of right tibia, initial encounter for closed fracture (principal); E87.20 Acidosis, unspecified; N17.9 Acute kidney failure, unspecified; D61.9 Aplastic anemia, unspecified; N18.4 Chronic kidney disease, stage 4 (severe); Z66 Do not resuscitate; Z51.5 Encounter for palliative care; I12.9 Hypertensive chronic kidney disease with stage 1 through stage 4 chronic kidney disease, or unspecified chronic kidney disease; Z68.33 Body mass index [BMI] 33.0-33.9, adult; S82.61XA Displaced fracture of lateral malleolus of right fibula, initial encounter for closed fracture; N20.0 Calculus of kidney; E11.22 Type 2 diabetes mellitus with diabetic chronic kidney disease; I48.0 Paroxysmal atrial fibrillation; E11.40 Type 2 diabetes mellitus with diabetic neuropathy, unspecified; E87.5 Hyperkalemia; E66.01 Morbid (severe) obesity due to excess calories; M10.9 Gout, unspecified; G47.33 Obstructive sleep apnea (adult) (pediatric); D53.1 Other megaloblastic anemias, not elsewhere classified; E21.3 Hyperparathyroidism, unspecified; G25.0 Essential tremor; I08.2 Rheumatic disorders of both aortic and tricuspid valves; I27.20 Pulmonary hypertension, unspecified; M16.11 Unilateral primary osteoarthritis, right hip; M17.11 Unilateral primary osteoarthritis, right knee; S31.109A Unspecified open wound of abdominal wall, unspecified quadrant without penetration into peritoneal cavity, initial encounter; Z90.49 Acquired absence of other specified parts of digestive tract; Z98.890 Other specified postprocedural states; Z79.4 Long term (current) use of insulin; Z79.899 Other long term (current) drug therapy; W01.0XXA Fall on same level from slipping, tripping and stumbling without subsequent striking against object, initial encounter
CPT/HCPCS: 36415; 36430; 73502; 73562-RT; 73590; 73610; 73700; 80047; 80053; 82570; 82947; 83735; 84156; 84300; 84550; 84560; 85014; 85018; 85025; 85049; 86850; 86900; 86901; 86923; 87070; 87205; 87340; 94762; 96374; 96375; 97110; 97162; 97166; 97530; 99285-25; A9270; J1171; J1815; J1940; J2270; J2543; J3010; J7042; J7050; J7070; J7515; P9016